=== PATIENT | female | born 1965 | race Caucasian/White ===

== ENCOUNTER 2019-10-21 17:14 | Inpatient (IN) ==
--- NOTE | 2019-10-21 17:36 | Internal Med History&Physical ---
HPI History of Present Illness Patient information: Note initiated : 10/21/19 at 5:36 pm Service Date, if different from initiated Date: [] Patient: Deisy Rutledge 53 y/o F admitted on for infected foot. Chief Complaint: [] History of present illness: Ms. Rutledge is a 53 year old F with a history of poorly controlled diabetes/diabetic neuropathy and prior foot ulcers requiring right fourth toe amputation. She presents to the ER with worsening left fourth toe blistering/redness and swelling over the last few days. Denies recent trauma. Patient has a history of poor control diabetes with microvascular complication including neuropathy/peripheral vascular disease. She is out of insurance and has not followed up on her blood sugars for months. She is also out of her usual medication/metformin. She is trying to establish with a [facility] physician. She presents to the ER for toe infection evaluation. Initial work-up was consistent with hyper glycemic hyperosmolar state with cellulitis changes left foot. Patient was started on antibiotics after cultures were drawn. Patient however left AMA to finish some work at home and returned within 2 hours later for evaluation and admission. Wound care Dr. Campos was consulted. Hospital service was requested for admission. At the time of evaluation patient is alert and oriented. She is able to provide answers to most the questions. She denies nausea vomiting, fever, chills, headache, photophobia or joint swelling. She denies any pain which is consistent with her neuropathic extremities. Review of systems A 10 point review of system was performed and is negative except for ones discussed above [facility] Medical History (Updated 10/21/19 @ 13:35 by Spike Rosario MD) Back pain (Chronic) Breast lump (Chronic 10/08/13) Decubitus ulcer of both feet (Acute) Dermatofibroma (Chronic 11/27/13) Dr Alvarez Diabetes mellitus type 2 with neurological manifestations (Acute 11/18/13) Diabetic foot ulcer associated with type 2 diabetes mellitus (Acute) Fibromatosis (Chronic) Genital herpes (Chronic) Ingrown nail (Chronic) Lumbago (Chronic 10/02/12) Dr Capone Neck pain (Chronic) Neuritis (Chronic) Thoracic or Lumbosacral Neuritis or Radiculitis Nuclear sclerosis (Chronic 04/26/14) Dr Escobar 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) Seborrheic dermatitis (Chronic 11/27/13) Dr Alvarez Seborrheic keratosis (Chronic 11/27/13) Skin abscess (Chronic) Skin lesion (Chronic 11/05/13) Cellulite/fatty degenraio non the left thigh Type 2 diabetes mellitus without complication (Chronic) 1997 Ulcer of lower extremity (Chronic 10/02/12) Dr Capone Xerosis of skin (Chronic 11/27/13) Other specified diseases of sebaceous glands--Dr Alvarez Surgical History Hx of amputation of lesser toe (Chronic) 2014 S/P skin biopsy (Chronic 10/02/12) Family History Mother Family history of arthritis Uncle Family history of arthritis Alcohol abuse Grandmother Essential hypertension Maternal Leukemia Maternal Myocardial Infarction Maternal Diabetes mellitus Maternal Great Grandmother Social History (Updated 04/07/19 @ 09:34 by Thierry Reyes MD, [facility]) marital status: legally smoking status: Never smoker alcohol intake frequency: does not drink substance use type: does not use MEDS/ALLERGIES Home Medications and Allergies Home Medications Medication Instructions Recorded Confirmed Type blood-glucose meter #100 each 11/19/17 10/21/19 Rx lancets #100 each 12/17/17 10/21/19 Rx blood sugar diagnostic #100 each 03/06/19 10/21/19 Rx Allergies Allergy/AdvReac Type Severity Reaction Status Date / Time adhesive tape Allergy Unknown Verified 10/21/19 17:18 EXAM Constitutional Vitals: Temp Pulse Resp BP Pulse Ox 97.3 F 95 H 16 118/71 98 10/21/19 17:14 10/21/19 17:27 10/21/19 17:14 10/21/19 17:27 10/21/19 17:27 Alert oriented Head normocephalic Oral cavity dry No ear nose discharge Neck lymphadenopathy S1-S2 regular Nonlabored breathing Abdomen soft nontender nondistended Lower extremity-left fourth toe dorsum area excoriated skin with necrotic tissue and also lateral surface with blistering and peeling, no gangrenous change surrounding erythema Right fourth toe amputation stump clean Skin no suspicious lesion Psych alert cooperative neuro nonfocal A/P Narrative A/P Narrative: * Diabetic left fourth toe ulcer with surrounding cellulitis-wound care consulted. Continue broad-spectrum antibiotics. No evidence of osteomyelitis on imaging. Await cultures. * Hyperglycemic hyperosmolar state-poor adherence to medications. Start basal prandial insulin/diabetic diet/diet education. Patient insists on using only oral antidiabetics on discharge due to lack of insurance. * Diabetic neuropathy-start gabapentin * Pseudohyponatremia * Obesity with a BMI over 35. Continue directed therapy/dietary intervention * Full code * Prophylax Heparin Plan * Inpatient admission * Antibiotic coverage * Wound care consult * Diabetes management/diabetic education/basal panel insulin/CC diet * Weight loss intervention counseling * PT OT nutrition support * Case management to coordinate outpatient follow-up/insurance applications Time Spent With Patient Time: Total time spent is greater than 50% in coordination of care (as documented) at patient's floor/unit and/or counseling patient:
[2019-10-21] MEDS ORDERED: CALCIUM CHLORIDE 1,000 MG/10 ML SYRINGE IV PRN ×2 (17:37→19:33)
[2019-10-21] MEDS ORDERED: DEXTROSE 50% 50 ML VIAL IV PRN ×2 (17:37→19:33)
[2019-10-21] MEDS ORDERED: DEXTROSE 31 GM ORAL.SUSP PO PRN ×2 (17:37→19:33)
[2019-10-21] MEDS ORDERED: ONDANSETRON 4 MG ODT TABLET SL PRN ×2 (17:37→19:33)
[2019-10-21] MEDS ORDERED: ACETAMINOPHEN 325 MG TABLET PO PRN (17:37)
[2019-10-21] MEDS ORDERED: MAGNESIUM SULFATE 2 GM/50 ML BAG IV PRN ×2 (17:37→19:33)
[2019-10-21] MEDS ORDERED: ACETAMINOPHEN 650 MG/65 ML BOTTLE IV PRN ×2 (17:37→19:33)
[2019-10-21] MEDS ORDERED: MELATONIN 3 MG TABLET PO PRN (17:37)
[2019-10-21] MEDS ORDERED: POLYETHYLENE GLYCOL 3350 17 GM PACKET PO PRN ×2 (17:37→19:33)
[2019-10-21] MEDS ORDERED: ONDANSETRON 4 MG/2 ML VIAL IV PRN ×2 (17:37→19:33)
[2019-10-21] MEDS ORDERED: BISACODYL 10 MG SUPP.RECT PR PRN ×2 (17:37→19:33)
[2019-10-21] MEDS ORDERED: POTASSIUM CHLORIDE 20 MEQ PACKET PO PRN ×2 (17:37→19:33)
[2019-10-21] MEDS ORDERED: PIPERACILLIN SODIUM/TAZOBACTAM 3.375 GM in DEXTROSE 5% IN WATER 50 ML IV SCH (17:45)
[2019-10-21] MEDS ORDERED: VANCOMYCIN PER PHARMACY IV SCH ×2 (17:45→19:33)
[2019-10-21] MEDS: DOCUSATE SODIUM 100 MG CAPSULE PO SCH (20:33)
[2019-10-21] MEDS: SENNOSIDES/DOCUSATE SODIUM 1 TAB TABLET PO SCH (20:34)
[2019-10-21] MEDS: INSULIN LISPRO 1 UNIT/0.01 ML UNIT SQ SCH ×2 (20:50→22:36)
[2019-10-21] MEDS: INSULIN GLARGINE, HUMAN 1 UNIT/0.01 ML SQ SCH (20:50)
[2019-10-21] MEDS: HEPARIN 5,000 UNIT/ML VIAL SQ SCH (20:50)
[2019-10-21] MEDS: 0.9 % SODIUM CHLORIDE 10 ML SYRINGE IV SCH (20:51)
[2019-10-21] MEDS: ACETAMINOPHEN 325 MG TABLET PO PRN (20:51)
[2019-10-21] MEDS ORDERED: VANCOMYCIN 1,000 MG in 0.9 % SODIUM CHLORIDE 250 ML IV SCH (21:00)
[2019-10-21] MEDS ORDERED: SENNOSIDES/DOCUSATE SODIUM 1 TAB TABLET PO SCH (21:00)
[2019-10-21] MEDS ORDERED: DOCUSATE SODIUM 100 MG CAPSULE PO SCH (21:00)
[2019-10-21] MEDS ORDERED: CYANOCOBALAMIN (VITAMIN B-12) 500 MCG TABLET PO SCH (21:00)
[2019-10-21] MEDS ORDERED: HEPARIN 5,000 UNIT/ML VIAL SQ SCH (21:00)
[2019-10-21] MEDS ORDERED: INSULIN LISPRO 1 UNIT/0.01 ML UNIT SQ SCH (21:00)
[2019-10-21] MEDS ORDERED: VANCOMYCIN 1,500 MG in 0.9 % SODIUM CHLORIDE 500 ML IV SCH (21:00)
[2019-10-21 21:48] LABS: Appearance,Urine CLEAR; Bacteria,Urine 0 /hpf (0); Bilirubin,Urine NEG (NEG); Color,Urine YELLOW; Culture Indicated,Urine NO; Glucose,Urine (UA) >=500 mg/dL (NEG); Ketones,Urine 5/TR mg/dL (NEG); Leukocyte Esterase,Urine NEG /uL (NEG); Mucus,Urine FEW /hpf (0); Nitrate,Urine NEG (NEG); Protein,Urine >=500 mg/dL (NEG); Specific Gravity,Urine 1.029 (1.000-1.035); Urine Blood 0.2 mg/dL (<0.03); Urine RBC 5 /hpf (0-1); Urine Squamous Epithelial Cell 2 /hpf (0-4); Urine WBC 2 /hpf (0-4); Urobilinogen,Urine NEG (NEG)
[2019-10-21] MEDS ORDERED: 0.9 % SODIUM CHLORIDE 10 ML SYRINGE IV SCH (22:00)
[2019-10-21] MEDS: CYANOCOBALAMIN (VITAMIN B-12) 500 MCG TABLET PO SCH (22:42)
[2019-10-22 01:15] LABS: Hemoglobin A1C 14.5 % HGB (4.0-6.0)
[2019-10-22] MEDS: PIPERACILLIN SODIUM/TAZOBACTAM 3.375 GM in DEXTROSE 5% IN WATER 50 ML IV SCH ×5 (01:49→23:40)
[2019-10-22] MEDS: 0.9 % SODIUM CHLORIDE 10 ML SYRINGE IV SCH ×3 (05:52→23:40)
[2019-10-22 06:25] LABS: Hematocrit 31.2 % (34.1-44.9); Hemoglobin 10.7 g/dL (11.2-15.7); Mean Corpuscular HGB Conc 34.3 g/dL (31.0-36.0); Mean Platelet Volume 11.6 fL (7.4-10.4); Platelet Count 219 K/mcL (140-440); RBC 3.95 M/mcL (3.59-5.38); Red Cell Distribution Width 12.2 % (11.5-14.5); WBC 7.4 K/mcL (4.50-11.00)
[2019-10-22 06:44] LABS: ALT/SGPT 9 U/l (0-40); AST/SGOT 10 U/l (0-37); Albumin 2.3 gm/dL (3.2-5.2); Albumin/Globulin Ratio 0.8 (1.0-2.3); Alkaline Phosphatase 83 U/L (39-117); Bilirubin,Direct < 0.2 mg/dL (0.0-0.3); Bilirubin,Total 0.7 mg/dL (0.0-1.0); Blood Urea Nitrogen 25 mg/dl (6-20); Calcium 8.1 mg/dl (8.6-10.4); Carbon Dioxide 26 mmol/L (22-30); Chloride 97 mmol/L (96-108); Globulin 2.8 gm/dL (2.2-3.7); Glomerular Filtration Rate 65; Glucose 298 mg/dL (70-105); Lactate Dehydrogenase 184 U/L (94-250); Phosphorous 3.8 mg/dL (2.7-4.5); Triglycerides 183 mg/dl (<150); Uric Acid 5.1 mg/dL (2.5-8.0)
[2019-10-22] MEDS: INSULIN LISPRO 1 UNIT/0.01 ML UNIT SQ SCH ×4 (07:20→20:27)
[2019-10-22 07:21] LABS: Erythrocyte Sedimentation Rate 93 mm/hr (0-20)
[2019-10-22 07:47] LABS: Band Neutrophils % 1 % (0-10); Eosinophils % (Manual) 1 % (0-7); Hypochromasia 1+ (NONE SEEN); Lymphocytes % 13 % (15-49); Microcytosis 1+ (NONE SEEN); Monocytes % (Manual) 11 % (1-12); Platelet Estimate NORMAL (NORMAL); RBC Morphology ABNORM (NORMAL); Segmented Neutrophils % 74 % (38-78)
[2019-10-22] MEDS: metFORMIN 500 MG TABLET PO SCH ×2 (08:24→17:20)
[2019-10-22] MEDS ORDERED: THIAMINE 100 MG TABLET PO SCH (09:00)
[2019-10-22] MEDS ORDERED: sitaGLIPtin 100 MG TABLET PO SCH (09:00)
[2019-10-22] MEDS ORDERED: MULTIVIT,THER IRON,CA,FA & MIN 1 TABLET PO SCH (09:00)
[2019-10-22] MEDS: MULTIVIT,THER IRON,CA,FA & MIN 1 TABLET PO SCH (10:09)
[2019-10-22] MEDS: sitaGLIPtin 100 MG TABLET PO SCH (10:09)
[2019-10-22] MEDS: HEPARIN 5,000 UNIT/ML VIAL SQ SCH ×2 (10:09→20:16)
[2019-10-22] MEDS: THIAMINE 100 MG TABLET PO SCH (10:09)
[2019-10-22] MEDS: CYANOCOBALAMIN (VITAMIN B-12) 500 MCG TABLET PO SCH ×2 (10:10→20:15)
[2019-10-22] MEDS: INSULIN GLARGINE, HUMAN 1 UNIT/0.01 ML SQ SCH ×2 (10:10→20:27)
[2019-10-22] MEDS: DOCUSATE SODIUM 100 MG CAPSULE PO SCH ×2 (10:11→20:10)
[2019-10-22] MEDS: VANCOMYCIN 1,500 MG in 0.9 % SODIUM CHLORIDE 500 ML IV SCH ×2 (10:27→21:14)
--- NOTE | 2019-10-22 11:36 | Internal Med Progress Note ---
SUBJECTIVE Subjective Patient information: Note initiated : 10/22/19 at 11:33 am Service Date, if different from initiated Date: [] Patient: Deisy Rutledge 53 y/o F admitted on 10/21/19 for infected foot. Chief Complaint: [] Interval history: History of present illness: Ms. Rutledge is a 53 year old F with a history of poorly controlled diabetes/diabetic neuropathy and prior foot ulcers requiring right fourth toe amputation. She presents to the ER with worsening left fourth toe blistering/redness and swelling over the last few days. Denies recent trauma. Patient has a history of poor control diabetes with microvascular complication including neuropathy/peripheral vascular disease. She is out of insurance and has not followed up on her blood sugars for months. She is also out of her usual medication/metformin. She is trying to establish with a primary care physician. She presents to the ER for toe infection evaluation. Initial work-up was consistent with hyper glycemic hyperosmolar state with cellulitis changes left foot. Patient was started on antibiotics after cultures were drawn. Patient however left AMA to finish some work at home and returned within 2 hours later for evaluation and admission. Wound care Dr. Campos was consulted. Hospital service was requested for admission. At the time of evaluation patient is alert and oriented. She is able to provide answers to most the questions. She denies nausea vomiting, fever, chills, headache, photophobia or joint swelling. She denies any pain which is con sistent with her neuropathic extremities. 10/21-patient doing well. On antibiotic coverage. Wound care on board. No overnight events. Improving blood sugars. Uptitrate Lantus. Continue CC diet. Constitutional Vitals: Vital Signs Temp Pulse Resp BP Pulse Ox 97.8 F 85 18 114/69 97 10/22/19 08:00 10/22/19 08:00 10/22/19 08:00 10/22/19 08:00 10/22/19 08:00 Period Temp Pulse Resp BP Sys/Cain Pulse Ox Last 24 Hr 97.3 F-98.9 F 85-100 16-20 111-145/66-95 91-98 Intake and Output 10/21/19 10/22/19 10/22/19 21:59 05:59 13:59 Intake Total 172 100 8963 Output Total 425 600 400 Balance -185 230 970 Weight 98.43 kg alert oriented nonlabored breathing Nondistended abdomen No anxiety Improved redness and swelling left foot Intake & Output: Intake & Output 10/21/19 10/22/19 10/22/19 21:59 05:59 13:59 Intake Total 216 334 8914 Output Total 425 600 400 Balance -185 230 970 Weight 98.43 kg Intake: IV 350 50 Zosyn 3.375 gm In Dextrose 5% 100 50 in Water 50 ml @ 100 mls/hr IV Q6H [facility] Rx#:[id number] Vancomycin 1,000 mg In Sodium 250 Chloride 0.9% 250 ml @ 250 mls/ hr IV TODAY@2100 [facility] Rx#: [id number] Oral 997 138 8424 Output: Void Amount 425 600 400 Other: Meal Tuna salad Breakfast Percent of Meal Consumed 100% 100% Feeding Ability Independent Independent Urine Appearance Clear Clear Urine Color Dark Yellow Bright Yellow Tea Colored Urine Odor Normal Stool Size Large Stool Color Brown Stool Consistency Soft # Bowel Movements 2 OBJ DATA Labs CBC & Chem 7: 10/22/19 05:25 10/22/19 05:25 Labs: Abnormal Lab Results 10/22/19 10/22/19 10/21/19 05:25 05:25 21:03 Hgb 10.7 L Hct 31.2 L MCV 79.0 L MPV 11.6 H Lymphocytes % 13 L RBC Morphology Abnorm A Hypochromasia 1+ A Microcytosis 1+ A ESR 93 H BUN 25 H Glucose 298 H Hemoglobin A1c Calcium 8.1 L Total Protein 5.1 L Albumin 2.3 L Albumin/Globulin Ratio 0.8 L Triglycerides 183 H Urine Protein >=500 A Urine Glucose (UA) >=500 A Urine Ketones 5/tr A Urine Occult Blood 0.2 A Urine RBC 5 H 10/21/19 12:42 Hgb Hct MCV MPV Lymphocytes % RBC Morphology Hypochromasia Microcytosis ESR BUN Glucose Hemoglobin A1c 14.5 H Calcium Total Protein Albumin Albumin/Globulin Ratio Triglycerides Urine Protein Urine Glucose (UA) Urine Ketones Urine Occult Blood Urine RBC Meds: Medications Acetaminophen (Tylenol) 650 mg PO Q4-6HP PRN; Protocol PRN Reason: Per Pain Protocol/Fever > 101 Last Admin: 10/21/19 20:51 Dose: 650 mg Documented by: Bisacodyl (Dulcolax) 10 mg ID Q2-3DAYS PRN PRN Reason: Constipation Calcium Chloride (Calcium Chloride) 1,000 mg IV ONCE PRN PRN Reason: CA+ = or < 7.8 Stop: 10/22/19 12:00 Cyanocobalamin (Vitamin B-12) 1,000 mcg PO BID [facility] Stop: 10/26/19 09:01 Last Admin: 10/22/19 10:10 Dose: 1,000 mcg Documented by: Dextrose (Dextrose 50%) 0 ml IV UD PRN PRN Reason: Hypoglycemia Diagnostic Test (Pha) (Accu-Chek) 1 each FS [facility] Last Admin: 10/22/19 07:01 Dose: 1 each Documented by: Docusate Sodium (Colace) 100 mg PO BID [facility] Last Admin: 10/22/19 10:11 Dose: Not Given Documented by: Glucose (Insta-Glucose) 15 gm PO PRN PRN PRN Reason: Hypoglycemia Heparin Sodium (Porcine) (Heparin) 5,000 unit SQ Q12 [facility] Last Admin: 10/22/19 10:09 Dose: 5,000 unit Documented by: Acetaminophen (Ofirmev) 650 mg in 65 mls @ 130 mls/hr IV Q6HP PRN; Protocol PRN Reason: Per Pain Protocol/Fever > 101 Magnesium Sulfate (Magnesium Sulfate) 2 gm in 50 mls @ 50 mls/hr IV UD PRN PRN Reason: MG = or < 1.7 Piperacillin Sod/Tazobactam (Sod 3.375 gm/ Dextrose) 50 mls @ 100 mls/hr IV Q6H [facility]; Protocol Last Infusion: 10/22/19 10:29 Dose: Infused Documented by: Vancomycin HCl 1,500 mg/ (Sodium Chloride) 500 mls @ 250 mls/hr IV Q12H [facility] Last Admin: 10/22/19 10:27 Dose: 250 mls/hr Documented by: Insulin Glargine (Lantus) 10 unit SQ BID [facility] Last Admin: 10/22/19 10:10 Dose: 10 units Documented by: Insulin Human Lispro (Humalog) 0 unit SQ ACHS [facility]; Protocol Last Admin: 10/22/19 07:20 Dose: 8 units Documented by: Iron Carb/Multivit/Simpson/Folic Acid (Multivitamin W/Minerals) 1 tab PO DAILY [facility] Last Admin: 10/22/19 10:09 Dose: 1 tab Documented by: Melatonin (Melatonin 3mg Tablet) 3 mg PO HSP PRN PRN Reason: Insomnia Metformin HCl (Glucophage) 1,000 mg PO BIDCC [facility] Last Admin: 10/22/19 08:24 Dose: 1,000 mg Documented by: Ondansetron HCl (Zofran Odt) 4 mg SL Q4-6HP PRN; Protocol PRN Reason: Nausea And Vomiting Ondansetron HCl (Zofran) 4 mg IV Q4-6HP PRN; Protocol PRN Reason: Nausea And Vomiting Polyethylene Glycol (Miralax) 17 gm PO DAILYP PRN PRN Reason: Constipation Potassium Chloride (Klor-Con) 40 meq PO DAILYP PRN PRN Reason: K+ < 3.5 Senna/Docusate Sodium (Senna Plus Tablet) 1 tab PO HS [facility] Last Admin: 10/21/19 20:34 Dose: Not Given Documented by: Sitagliptin Phosphate (Januvia) 100 mg PO DAILY [facility] Last Admin: 10/22/19 10:09 Dose: 100 mg Documented by: Sodium Chloride (Saline Flush) 10 ml IV Q8 [facility] Last Admin: 10/22/19 05:52 Dose: 10 ml Documented by: Thiamine HCl (Vitamin B1) 100 mg PO DAILY [facility] Last Admin: 10/22/19 10:09 Dose: 100 mg Documented by: Vancomycin HCl (Vancomycin Per Pharmacy) 1 order IV UD [facility]; Protocol A/P Narrative A/P Narrative: * Diabetic left fourth toe ulcer with surrounding cellulitis- Improving on broad-spectrum antibiotics. No evidence of osteomyelitis on imaging. Wound care consulted * Hyperglycemic hyperosmolar state-poor adherence to medications. Continue uptitrating basal prandial insulin/diabetic diet/diet education. Patient insists on using only oral antidiabetics on discharge due to lack of insurance. Continue diabetic education * Diabetic neuropathy-continue gabapentin * Pseudohyponatremia * Obesity with a BMI over 35. Continue directed therapy/dietary intervention * Full code * Prophylax Heparin Plan * Continue wound care per Dr. Campos * Antibiotic coverage * Diabetes management/diabetic education/basal panel insulin/CC diet * Weight loss intervention counseling * Continue PT OT nutrition support * Case management to coordinate outpatient follow-up/insurance applications Time Spent With Patient Time: Total time spent is greater than 50% in coordination of care (as documented) at patient's floor/unit and/or counseling patient: QUALITY VTE Deep Vein Thrombosis/Pulmonary Embolism Present on Admission: No
--- NOTE | 2019-10-22 13:50 | General Surgery Consult Note ---
HPI Data of Consult Consult date: 10/22/19 Requesting physician: Rodolfo Lemos Primary Care Provider: PCP No Consult Narrative Chief complaint: SEPSIS, INFECTED left fourth toe with cellulits and uncontrol led diabetes. Reason for consult: Wound Care management. History of present illness: I saw this patient for FIRST time today in Room 108 along with LILA [employer] plant caretaker nurse. Admitted via ER last evening with SEPSIS due to CSSSI of left 4th toe, discoloration, soft tissue swelling and uncontrolled diabetes, hyperosmolar state, cellulitis surrounding the toe an lateral foot. She has had toe infections and deformity of this toe in past. Patient has long standing h/o IDDM and had undergone a toe amputation of RIGHT foot in past. She is a NON smoker and NON alcoholic. 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 She DENIES any other specific constitutional or systemic complaints. cc:: CC: Rodolfo Lemos [facility] Medical History (Updated 10/21/19 @ 13:35 by Spike Rosario MD) Back pain (Chronic) Breast lump (Chronic 10/08/13) Decubitus ulcer of both feet (Acute) Dermatofibroma (Chronic 11/27/13) Dr Alvarez Diabetes mellitus type 2 with neurological manifestations (Acute 11/18/13) Diabetic foot ulcer associated with type 2 diabetes mellitus (Acute) Fibromatosis (Chronic) Genital herpes (Chronic) Ingrown nail (Chronic) Lumbago (Chronic 10/02/12) Dr Capone Neck pain (Chronic) Neuritis (Chronic) Thoracic or Lumbosacral Neuritis or Radiculitis Nuclear sclerosis (Chronic 04/26/14) Dr Escobar 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) Seborrheic dermatitis (Chronic 11/27/13) Dr Alvarez Seborrheic keratosis (Chronic 11/27/13) Skin abscess (Chronic) Skin lesion (Chronic 11/05/13) Cellulite/fatty degenraio non the left thigh Type 2 diabetes mellitus without complication (Chronic) 1998 Ulcer of lower extremity (Chronic 10/02/12) Dr Capone Xerosis of skin (Chronic 11/27/13) Other specified diseases of sebaceous glands--Dr Alvarez Surgical History Hx of amputation of lesser toe (Chronic) 2014 S/P skin biopsy (Chronic 10/02/12) Family History Mother Family history of arthritis Uncle Family history of arthritis Alcohol abuse Grandmother Essential hypertension Maternal Leukemia Maternal Myocardial Infarction Maternal Diabetes mellitus Maternal Great Grandmother Social History (Updated 04/07/19 @ 09:34 by Thierry Reyes MD, [facility]) marital status: legally smoking status: Never smoker alcohol intake frequency: does not drink substance use type: does not use MEDS/ALLERGIES Home Medications and Allergies Home Medications Medication Instructions Recorded Confirmed Type blood-glucose meter #100 each 11/19/17 10/21/19 Rx lancets #100 each 12/17/17 10/21/19 Rx blood sugar diagnostic #100 each 03/06/19 10/21/19 Rx ibuprofen 400 mg PO Q6H PRN 10/21/19 10/21/19 History Allergies Allergy/AdvReac Type Severity Reaction Status Date / Time adhesive tape Allergy Unknown Verified 10/21/19 20:25 Physical Examination Vital Signs Vital signs: Temp Pulse Resp BP Pulse Ox 97.8 F 95 H 18 119/73 97 10/22/19 08:00 10/22/19 12:00 10/22/19 08:00 10/22/19 12:00 10/22/19 12:00 General physical appearance General physical exam: well developed, well nourished and no distress Eyes Eye exam: PERRL and normal ocular movement ENT ENT exam: normal pinna, normal nares, normal mucosa, no hearing loss and no congestion Head Head exam IM: Present atraumatic, normal inspection and normocephalic Neck Neck exam: no masses, trachea midline and no venous distension Cardiovascular Cardiovascular exam IM: Present normal rate and rhythm Respiratory Respiratory exam: normal expansion, normal respiratory effort and clear to auscultation Abdomen Abdomen: Present soft, non tender and bowel sounds Integumentary Integumentary: Present other (There is soft tissue edema, discolration, ulceration over PIPJ and purulence of 4th toe. Proximal cellulitis involving lateral dorsal foot, extending to ankle region. ) Neurologic Neurologic: Present other (Diabetes with peripheral neuropathy. ) Musculoskeletal Musculoskeletal: Present normal posture Psychiatric Psychiatric: Present oriented to time, oriented to person, oriented to place, speech is normal and memory intact Additional Findings Additional exam: TOE nails of both feet are long, ridged and sharp edged. Results Labs Result diagrams: 10/22/19 05:25 10/22/19 05:25 Labs: Abnormal lab results 10/21/19 10/21/19 10/22/19 Range/Units 12:42 21:03 05:25 Hgb 10.7 L (11.2-15.7) g/dL Hct 31.2 L (34.1-44.9) % MCV 79.0 L (80.0-100.0) fL MPV 11.6 H (7.4-10.4) fL Lymphocytes % 13 L (15-49) % RBC Morphology Abnorm A (NORMAL) Hypochromasia 1+ A (NONE SEEN) Microcytosis 1+ A (NONE SEEN) ESR 93 H (0-20) mm/hr BUN (6-20) mg/dl Glucose (70-105) mg/dL Hemoglobin A1c 14.5 H (4.0-6.0) % HGB Calcium (8.6-10.4) mg/dl Total Protein (5.9-8.4) gm/dL Albumin (3.2-5.2) gm/dL Albumin/Globulin Ratio (1.0-2.3) Triglycerides (<150) mg/dl Urine Protein >=500 A (NEG) mg/dL Urine Glucose (UA) >=500 A (NEG) mg/dL Urine Ketones 5/tr A (NEG) mg/dL Urine Occult Blood 0.2 A (<0.03) mg/dL Urine RBC 5 H (0-1) /hpf 10/22/19 Range/Units 05:25 Hgb (11.2-15.7) g/dL Hct (34.1-44.9) % MCV (80.0-100.0) fL MPV (7.4-10.4) fL Lymphocytes % (15-49) % RBC Morphology (NORMAL) Hypochromasia (NONE SEEN) Microcytosis (NONE SEEN) ESR (0-20) mm/hr BUN 25 H (6-20) mg/dl Glucose 298 H (70-105) mg/dL Hemoglobin A1c (4.0-6.0) % HGB Calcium 8.1 L (8.6-10.4) mg/dl Total Protein 5.1 L (5.9-8.4) gm/dL Albumin 2.3 L (3.2-5.2) gm/dL Albumin/Globulin Ratio 0.8 L (1.0-2.3) Triglycerides 183 H (<150) mg/dl Urine Protein (NEG) mg/dL Urine Glucose (UA) (NEG) mg/dL Urine Ketones (NEG) mg/dL Urine Occult Blood (<0.03) mg/dL Urine RBC (0-1) /hpf Diabetes panel 10/21/19 10/22/19 Range/Units 12:42 05:25 Sodium 134 (133-145) mmol/L Potassium 4.2 (3.3-5.1) mmol/L Chloride 97 (96-108) mmol/L Carbon Dioxide 26 (22-30) mmol/L BUN 25 H (6-20) mg/dl Creatinine 1.0 (0.6-1.1) mg/dl Glucose 298 H (70-105) mg/dL Hemoglobin A1c 14.5 H (4.0-6.0) % HGB Calcium 8.1 L (8.6-10.4) mg/dl AST 10 (0-37) U/l ALT 9 (0-40) U/l Alkaline Phosphatase 83 (39-117) U/L Total Protein 5.1 L (5.9-8.4) gm/dL Albumin 2.3 L (3.2-5.2) gm/dL Triglycerides 183 H (<150) mg/dl Calcium panel 10/22/19 Range/Units 05:25 Calcium 8.1 L (8.6-10.4) mg/dl Phosphorus 3.8 (2.7-4.5) mg/dL Albumin 2.3 L (3.2-5.2) gm/dL Pituitary panel 10/22/19 Range/Units 05:25 Sodium 134 (133-145) mmol/L Potassium 4.2 (3.3-5.1) mmol/L Chloride 97 (96-108) mmol/L Carbon Dioxide 26 (22-30) mmol/L BUN 25 H (6-20) mg/dl Creatinine 1.0 (0.6-1.1) mg/dl Glucose 298 H (70-105) mg/dL Calcium 8.1 L (8.6-10.4) mg/dl Adrenal panel 10/22/19 Range/Units 05:25 Sodium 134 (133-145) mmol/L Potassium 4.2 (3.3-5.1) mmol/L Chloride 97 (96-108) mmol/L Carbon Dioxide 26 (22-30) mmol/L BUN 25 H (6-20) mg/dl Creatinine 1.0 (0.6-1.1) mg/dl Glucose 298 H (70-105) mg/dL Calcium 8.1 L (8.6-10.4) mg/dl Total Bilirubin 0.7 (0.0-1.0) mg/dL AST 10 (0-37) U/l ALT 9 (0-40) U/l Alkaline Phosphatase 83 (39-117) U/L Total Protein 5.1 L (5.9-8.4) gm/dL Albumin 2.3 L (3.2-5.2) gm/dL All other labs normal. A/P Narrative A/P Narrative: Assessment: SEPSIS , CSSSI Left 4th toe with cellulitis and uncontrolled diabetes. hyperosmolar state. Plan: Bedside debridement and tissue for c/s. Spoke with patient about plan of treatment i.e. LOCAL wound care, focused antibiotic coverage. MAY end up with toe amputation. She is aware and understands. SHE understands. She is concerned about NOT having insurance coverage and awaits evaluation by GEO, SW. Time Spent With Patient Time: Total time spent is greater than 50% in coordination of care (as documented) at patient's floor/unit and/or counseling patient: Total time spent with greater than 50% in coordination of care (as documented) at patient's floor/unit and/or counseling patient:: Greater than 35 minutes
--- NOTE | 2019-10-22 14:02 | Brief Operative Note ---
Brief Operative Note Date of procedure: 10/22/19 Pre-op diagnosis: SEPSIS, Infected LEFT 4th toe with cellulitis. Post-op diagnosis: same Procedure: BEDSIDE debridement with tissue for c/s Anesthesia: none Findings: Purulent drainage above PIPJ with skin necrosis. Complications: none Surgeon: Mike Campos Estimated blood loss (cc): 0 Specimens Removed/Pathology: other Condition: stable Disposition: floor
--- NOTE | 2019-10-22 14:21 | Emergency Department Note ---
Extremity Problem HPI General Chief complaint: Extremity Injury, Lower Stated complaint: infected foot Time Seen by Provider: 10/21/19 17:31 Source: patient Mode of arrival: ambulatory Limitations: no limitations History of Present Illness HPI Narrative: Narrative: This 53-year-old patient was seen earlier today and was going to be admitted for hyperglycemia and diabetic foot ulcer. Work-up was done but patient needed to go home first to take care of her animals before she could come in the hospital. She left AMA and is now back to be admitted to the hospital Related Data Home Medications Medication Instructions Recorded Confirmed ibuprofen 400 mg PO Q6H PRN 10/21/19 10/21/19 Previous Rx's Medication Instructions Recorded blood-glucose meter #100 each 11/19/17 lancets #100 each 12/17/17 blood sugar diagnostic #100 each 03/06/19 Allergies Allergy/AdvReac Type Severity Reaction Status Date / Time adhesive tape AdvReac Mild skin peels Verified 10/25/19 09:11 Review of Systems ROS ROS Narrative: Narrative: COUNT INCLUDES THE [facility] Narrative Patient History Narrative: Narrative: Medical/Surgical/Family History All Active Problems (Updated 10/21/19 @ 13:35 by Spike Rosario MD) Acute hyperglycemia (Acute) Influenza vaccine refused (Chronic) Diabetic foot ulcer associated with type 2 diabetes mellitus (Acute) Decubitus ulcer of both feet (Acute) Depression (Acute) Hyponatremia (Acute) Elevated ferritin (Chronic) Hypovitaminosis D (Chronic) Hyperlipidemia (Chronic) Essential hypertension (Chronic) Hx of amputation of lesser toe (Chronic) S/P skin biopsy (Chronic 10/02/12) Xerosis of skin (Chronic 11/27/13) Ulcer of lower extremity (Chronic 10/02/12) Neuritis (Chronic) Seborrheic keratosis (Chronic 11/27/13) Seborrheic dermatitis (Chronic 11/27/13) 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) Nuclear sclerosis (Chronic 04/26/14) Neck pain (Chronic) Lumbago (Chronic 10/02/12) Skin lesion (Chronic 11/05/13) Ingrown nail (Chronic) Genital herpes (Chronic) Fibromatosis (Chronic) Diabetes mellitus type 2 with neurological manifestations (Acute 11/18/13) Type 2 diabetes mellitus without complication (Chronic) Dermatofibroma (Chronic 11/27/13) Breast lump (Chronic 10/08/13) Back pain (Chronic) Skin abscess (Chronic) Medical History (Updated 10/21/19 @ 13:35 by Spike Rosario MD) Back pain (Chronic) Breast lump (Chronic 10/08/13) Decubitus ulcer of both feet (Acute) Dermatofibroma (Chronic 11/27/13) Dr Alvarez Diabetes mellitus type 2 with neurological manifestations (Acute 11/18/13) Diabetic foot ulcer associated with type 2 diabetes mellitus (Acute) Fibromatosis (Chronic) Genital herpes (Chronic) Ingrown nail (Chronic) Lumbago (Chronic 10/02/12) Dr Capone Neck pain (Chronic) Neuritis (Chronic) Thoracic or Lumbosacral Neuritis or Radiculitis Nuclear sclerosis (Chronic 04/26/14) Dr Escobar 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) Seborrheic dermatitis (Chronic 11/27/13) Dr Alvarez Seborrheic keratosis (Chronic 11/27/13) Skin abscess (Chronic) Skin lesion (Chronic 11/05/13) Cellulite/fatty degenraio non the left thigh Type 2 diabetes mellitus without complication (Chronic) 1998 Ulcer of lower extremity (Chronic 10/02/12) Dr Capone Xerosis of skin (Chronic 11/27/13) Other specified diseases of sebaceous glands--Dr Alvarez Surgical History Hx of amputation of lesser toe (Chronic) 2014 S/P skin biopsy (Chronic 10/02/12) Family History Mother Family history of arthritis Uncle Family history of arthritis Alcohol abuse Grandmother Essential hypertension Maternal Leukemia Maternal Myocardial Infarction Maternal Diabetes mellitus Maternal Great Grandmother Social History Smoking Status: Never smoker Alcohol Intake Frequency: does not drink Substance Use: does not use Exam Narrative Narrative: Narrative: General Limitations: no limitations Course Vital Signs Vital signs: Vital Signs Temperature 97.3 F 10/21/19 17:14 Pulse Rate 97 H 10/21/19 17:14 Respiratory Rate 16 10/21/19 17:14 Blood Pressure 124/71 10/21/19 17:14 Pulse Oximetry (%) 98 10/21/19 17:14 Temperature 97.3 F 10/25/19 07:53 Pulse Rate 87 10/25/19 07:53 Respiratory Rate 16 07/12/20 07:53 Blood Pressure 118/74 10/25/19 07:53 Pulse Oximetry (%) 95 10/25/19 07:53 MDM MDM Narrative Medical decision making narrative: Narrative: Dr. Campos is already consulted for wound care. We will consult hospitalist for admission I discussed the case with Dr. Herrera. He agreed to accept the patient for further care and evaluation in the hospital. Please see previous note for full work-up. Lab Data Result diagrams: 10/25/19 05:30 10/25/19 05:30 Labs: Lab Results 10/21/19 Range/Units 12:42 Hemoglobin A1c 14.5 H (4.0-6.0) % HGB Estim Average Glucose 369 mg/dL Discharge Plan Patient/Caregiver Discharge Instructions Pt seen by [employer] SCREED OPERATOR/PA only: No Patient Disposition: Xfer As Inpt ([facility]) Condition: Fair Discharge Date/Time: 10/21/19 19:29 Discharge Location: [facility]
--- NOTE | 2019-10-22 14:41 | Procedure Note ---
DATE OF PROCEDURE: 10/22/2019 PREOPERATIVE DIAGNOSES: Sepsis, uncontrolled diabetes, hyperosmolar state, cellulitis, and infected left fourth toe with ulcer on the dorsal aspect of the proximal interphalangeal joint. PROCEDURE NOTE IN DETAIL: After obtaining informed verbal consent, I proceeded to debride this wound at the bedside. With the patient in supine position and the left foot elevated, the area was cleaned with Betadine swab and isolated with sterile drapes. This is a neuropathic foot. I was able to excise the wound ulcer site with pickup and scissors. This led to a gush of purulent drainage. Customs Agent sample was obtained for culture and sensitivity. Dressings consisted of SilverSol ointment, gauze between the toes, Kerlix, and Jerry bandages respectively. This will be repeated two times a day, and we will await results of the culture and sensitivity. VD:ricco Job ID: [id number] Doc ID: [id number] Mike Campos MD
[2019-10-22] MEDS: GABAPENTIN 100 MG CAPSULE PO SCH ×2 (15:24→20:15)
[2019-10-22] MEDS: SENNOSIDES/DOCUSATE SODIUM 1 TAB TABLET PO SCH (20:10)
[2019-10-22] MEDS: ACETAMINOPHEN 325 MG TABLET PO PRN (20:15)
[2019-10-23] MEDS: ACETAMINOPHEN 325 MG TABLET PO PRN ×2 (03:33→07:38)
[2019-10-23] MEDS: PIPERACILLIN SODIUM/TAZOBACTAM 3.375 GM in DEXTROSE 5% IN WATER 50 ML IV SCH ×4 (06:02→23:46)
[2019-10-23] MEDS: 0.9 % SODIUM CHLORIDE 10 ML SYRINGE IV SCH ×3 (06:02→21:52)
[2019-10-23 06:58] LABS: Hematocrit 31.3 % (34.1-44.9); Hemoglobin 10.6 g/dL (11.2-15.7); Mean Cell Volume 80.9 fL (80.0-100.0); Mean Corpuscular HGB Conc 33.9 g/dL (31.0-36.0); Mean Platelet Volume 11.2 fL (7.4-10.4); Platelet Count 245 K/mcL (140-440); RBC 3.87 M/mcL (3.59-5.38); Red Cell Distribution Width 12.2 % (11.5-14.5); WBC 7.3 K/mcL (4.50-11.00)
[2019-10-23] MEDS: metFORMIN 500 MG TABLET PO SCH ×2 (07:09→16:41)
[2019-10-23] MEDS: INSULIN LISPRO 1 UNIT/0.01 ML UNIT SQ SCH ×4 (07:09→21:48)
[2019-10-23 07:32] LABS: ALT/SGPT 10 U/l (0-40); AST/SGOT 14 U/l (0-37); Albumin 2.2 gm/dL (3.2-5.2); Albumin/Globulin Ratio 0.8 (1.0-2.3); Alkaline Phosphatase 83 U/L (39-117); Bilirubin,Direct < 0.2 mg/dL (0.0-0.3); Bilirubin,Total 0.5 mg/dL (0.0-1.0); Blood Urea Nitrogen 24 mg/dl (6-20); Calcium 8.1 mg/dl (8.6-10.4); Carbon Dioxide 23 mmol/L (22-30); Chloride 95 mmol/L (96-108); Globulin 2.8 gm/dL (2.2-3.7); Glomerular Filtration Rate 58; Glucose 236 mg/dL (70-105); Lactate Dehydrogenase 163 U/L (94-250); Phosphorous 4.4 mg/dL (2.7-4.5); Triglycerides 229 mg/dl (<150); Uric Acid 4.7 mg/dL (2.5-8.0)
[2019-10-23] MEDS: DOCUSATE SODIUM 100 MG CAPSULE PO SCH ×2 (07:48→21:52)
[2019-10-23] MEDS: HEPARIN 5,000 UNIT/ML VIAL SQ SCH ×2 (08:12→21:51)
[2019-10-23] MEDS: INSULIN GLARGINE, HUMAN 1 UNIT/0.01 ML SQ SCH ×2 (08:12→21:49)
[2019-10-23] MEDS: MULTIVIT,THER IRON,CA,FA & MIN 1 TABLET PO SCH (08:13)
[2019-10-23] MEDS: sitaGLIPtin 100 MG TABLET PO SCH (08:13)
[2019-10-23] MEDS: CYANOCOBALAMIN (VITAMIN B-12) 500 MCG TABLET PO SCH ×2 (08:13→21:50)
[2019-10-23] MEDS: GABAPENTIN 100 MG CAPSULE PO SCH ×3 (08:13→21:50)
[2019-10-23] MEDS: THIAMINE 100 MG TABLET PO SCH (08:13)
[2019-10-23] MEDS: VANCOMYCIN 1,500 MG in 0.9 % SODIUM CHLORIDE 500 ML IV SCH (08:37)
[2019-10-23 09:03] LABS: Band Neutrophils % 2 % (0-10); Basophils % (Manual) 1 % (0-2); Eosinophils % (Manual) 4 % (0-7); Lymphocytes % 19 % (15-49); Monocytes % (Manual) 9 % (1-12); Platelet Estimate NORMAL (NORMAL); Polychromasia 1+ (NONE SEEN); RBC Morphology ABNORM (NORMAL); Reactive Lymphocytes 1 % (0-2); Segmented Neutrophils % 64 % (38-78)
--- NOTE | 2019-10-23 09:49 | Internal Med Progress Note ---
SUBJECTIVE Subjective Patient information: Note initiated : 10/23/19 at 9:44 am Service Date, if different from initiated Date: [] Patient: Deisy Rutledge 53 y/o F admitted on 10/21/19 for infected foot. Chief Complaint: [] History of present illness: Ms. Rutledge is a 53 year old F with a history of poorly controlled diabetes/diabetic neuropathy and prior foot ulcers requiring right fourth toe amputation. She presents to the ER with worsening left fourth toe blistering/redness and swelling over the last few days. Denies recent trauma. Patient has a history of poor control diabetes with microvascular complication including neuropathy/peripheral vascular disease. She is out of insurance and has not followed up on her blood sugars for months. She is also out of her usual medication/metformin. She is trying to establish with a primary care physician. She presents to the ER for toe infection evaluation. Initial work-up was consistent with hyper glycemic hyperosmolar state with cellulitis changes left foot. Patient was started on antibiotics after cultures were drawn. Patient however left AMA to finish some work at home and returned within 2 hours later for evaluation and admission. Wound care Dr. Campos was consulted. Hospital service was requested for admission. At the time of evaluation patient is alert and oriented. She is able to provide answers to most the questions. She denies nausea vomiting, fever, chills, headache, photophobia or joint swelling. She denies any pain which is consistent with her neuropathic extremities. 10/21-patient doing well. On antibiotic coverage. Wound care on board. No overnight events. Improving blood sugars. Uptitrate Lantus. Continue CC diet. 10/22-beta streptococci on wound culture. On antibiotic coverage. Left foot cellulitis and redness much improved. Ongoing debridement by Dr. mejia. A1c over 14. On basal prandial insulin/metformin. Add Glucotrol. Case management coordinating insurance applications. Interval history: Narrative: Constitutional Vitals: Vital Signs Temp Pulse Resp BP Pulse Ox 97.6 F 88 18 127/79 98 10/23/19 08:00 10/23/19 08:00 10/23/19 08:00 10/23/19 08:00 10/23/19 08:00 Period Temp Pulse Resp BP Sys/Cain Pulse Ox Last 24 Hr 97.6 F-99.4 F 82-97 16-20 107-128/71-83 93-98 Intake and Output 10/22/19 10/23/19 10/23/19 21:59 05:59 13:59 Intake Total 550 1000 50 Output Total 725 Balance -175 1000 50 Weight 101.605 kg Alert oriented Resting comfortably Nonlabored breathing Much improved redness left foot No anxiety Intake & Output: Intake & Output 10/22/19 10/23/19 10/23/19 21:59 05:59 13:59 Intake Total 550 1000 50 Output Total 725 Balance -175 1000 50 Weight 101.605 kg Intake: IV 100 550 50 Zosyn 3.375 gm In Dextrose 5% 100 50 50 in Water 50 ml @ 100 mls/hr IV Q6H [facility] Rx#:[id number] Vancomycin 1,500 mg In Sodium 500 Chloride 0.9% 500 ml @ 250 mls/ hr IV Q12H [facility] Rx#:[id number] Oral 450 450 Output: Void Amount 725 Other: Urine Appearance Clear Urine Color Bright Yellow Urine Odor Normal Stool Size Moderate Stool Color Brown Stool Consistency Loose # Voids 1 # Bowel Movements 1 # of times incontinent of 0 Bowels OBJ DATA Labs CBC & Chem 7: 10/23/19 05:35 10/23/19 05:35 Labs: Abnormal Lab Results 10/23/19 10/23/19 10/23/19 08:05 05:35 05:35 Hgb 10.6 L Hct 31.3 L MCV MPV 11.2 H Lymphocytes % RBC Morphology Abnorm A Polychromasia 1+ A Hypochromasia Microcytosis ESR Sodium 131 L Chloride 95 L BUN 24 H Glucose 236 H Hemoglobin A1c Calcium 8.1 L Total Protein 5.0 L Albumin 2.2 L Albumin/Globulin Ratio 0.8 L Triglycerides 229 H Urine Protein Urine Glucose (UA) Urine Ketones Urine Occult Blood Urine RBC Vancomycin Trough 20.8 H* 10/22/19 10/22/19 10/21/19 05:25 05:25 21:03 Hgb 10.7 L Hct 31.2 L MCV 79.0 L MPV 11.6 H Lymphocytes % 13 L RBC Morphology Abnorm A Polychromasia Hypochromasia 1+ A Microcytosis 1+ A ESR 93 H Sodium Chloride BUN 25 H Glucose 298 H Hemoglobin A1c Calcium 8.1 L Total Protein 5.1 L Albumin 2.3 L Albumin/Globulin Ratio 0.8 L Triglycerides 183 H Urine Protein >=500 A Urine Glucose (UA) >=500 A Urine Ketones 5/tr A Urine Occult Blood 0.2 A Urine RBC 5 H Vancomycin Trough 10/21/19 12:42 Hgb Hct MCV MPV Lymphocytes % RBC Morphology Polychromasia Hypochromasia Microcytosis ESR Sodium Chloride BUN Glucose Hemoglobin A1c 14.5 H Calcium Total Protein Albumin Albumin/Globulin Ratio Triglycerides Urine Protein Urine Glucose (UA) Urine Ketones Urine Occult Blood Urine RBC Vancomycin Trough Meds: Medications Acetaminophen (Tylenol) 650 mg PO Q4-6HP PRN; Protocol PRN Reason: Per Pain Protocol/Fever > 101 Last Admin: 10/23/19 07:38 Dose: 650 mg Documented by: Bisacodyl (Dulcolax) 10 mg FL Q2-3DAYS PRN PRN Reason: Constipation Cyanocobalamin (Vitamin B-12) 1,000 mcg PO BID [facility] Stop: 10/26/19 09:01 Last Admin: 10/23/19 08:13 Dose: 1,000 mcg Documented by: Dextrose (Dextrose 50%) 0 ml IV UD PRN PRN Reason: Hypoglycemia Diagnostic Test (Pha) (Accu-Chek) 1 each FS ACHS [facility] Last Admin: 10/23/19 07:03 Dose: 1 each Documented by: Docusate Sodium (Colace) 100 mg PO BID [facility] Last Admin: 10/23/19 07:48 Dose: Not Given Documented by: Gabapentin (Neurontin) 100 mg PO TID [facility] Last Admin: 10/23/19 08:13 Dose: 100 mg Documented by: Glucose (Insta-Glucose) 15 gm PO PRN PRN PRN Reason: Hypoglycemia Heparin Sodium (Porcine) (Heparin) 5,000 unit SQ Q12 [facility] Last Admin: 10/23/19 08:12 Dose: 5,000 unit Documented by: Acetaminophen (Ofirmev) 650 mg in 65 mls @ 130 mls/hr IV Q6HP PRN; Protocol PRN Reason: Per Pain Protocol/Fever > 101 Magnesium Sulfate (Magnesium Sulfate) 2 gm in 50 mls @ 50 mls/hr IV UD PRN PRN Reason: MG = or < 1.7 Piperacillin Sod/Tazobactam (Sod 3.375 gm/ Dextrose) 50 mls @ 100 mls/hr IV Q6H [facility]; Protocol Last Infusion: 10/23/19 06:42 Dose: Infused Documented by: Insulin Glargine (Lantus) 10 unit SQ BID [facility] Last Admin: 10/23/19 08:12 Dose: 10 units Documented by: Insulin Human Lispro (Humalog) 0 unit SQ ACHS [facility]; Protocol Last Admin: 10/23/19 07:09 Dose: 3 units Documented by: Iron Carb/Multivit/[place]/Folic Acid (Multivitamin W/Minerals) 1 tab PO DAILY [facility] Last Admin: 10/23/19 08:13 Dose: 1 tab Documented by: Melatonin (Melatonin 3mg Tablet) 3 mg PO HSP PRN PRN Reason: Insomnia Metformin HCl (Glucophage) 1,000 mg PO BIDCC [facility] Last Admin: 10/23/19 07:09 Dose: 1,000 mg Documented by: Ondansetron HCl (Zofran Odt) 4 mg SL Q4-6HP PRN; Protocol PRN Reason: Nausea And Vomiting Ondansetron HCl (Zofran) 4 mg IV Q4-6HP PRN; Protocol PRN Reason: Nausea And Vomiting Polyethylene Glycol (Miralax) 17 gm PO DAILYP PRN PRN Reason: Constipation Potassium Chloride (Klor-Con) 40 meq PO DAILYP PRN PRN Reason: K+ < 3.5 Senna/Docusate Sodium (Senna Plus Tablet) 1 tab PO HS [facility] Last Admin: 10/22/19 20:10 Dose: Not Given Documented by: Sitagliptin Phosphate (Januvia) 100 mg PO DAILY [facility] Last Admin: 10/23/19 08:13 Dose: 100 mg Documented by: Sodium Chloride (Saline Flush) 10 ml IV Q8 [facility] Last Admin: 10/23/19 06:02 Dose: 10 ml Documented by: Thiamine HCl (Vitamin B1) 100 mg PO DAILY [facility] Last Admin: 10/23/19 08:13 Dose: 100 mg Documented by: Vancomycin HCl (Vancomycin Per Pharmacy) 1 order IV UD [facility]; Protocol A/P Narrative A/P Narrative: * Diabetic left fourth toe ulcer with surrounding cellulitis-Betasept cocci on cultures. Wound care on board. Ongoing debridement. De-escalate antibiotics * Hyperglycemic hyperosmolar state-poor adherence to medications. A1c over 14. Start metformin/Glucotrol/and continue basal prandial insulin/diabetic diet/diabetic education. * Diabetic neuropathy-continue gabapentin * Pseudohyponatremia resolved * Obesity with a BMI over 35. Continue directed therapy/dietary intervention * Full code * Prophylax Heparin Plan * Continue wound care per Dr. Campos * De-escalate antibiotic coverage * Diabetes management/diabetic education/basal panel insulin/CC diet * Weight loss intervention counseling * Continue PT OT nutrition support * Case management to coordinate outpatient follow-up/insurance applications Time Spent With Patient Time: Total time spent is greater than 50% in coordination of care (as documented) at patient's floor/unit and/or counseling patient: QUALITY VTE Deep Vein Thrombosis/Pulmonary Embolism Present on Admission: No
[2019-10-23] MEDS: glipiZIDE 2.5 MG TAB.XL.24H PO SCH (17:01)
--- NOTE | 2019-10-23 17:12 | General Surgery Progress Note ---
SUBJECTIVE Subjective Patient information: Note initiated : 10/23/19 at 5:05 pm Service Date, if different from initiated Date: [] Patient: Deisy Rutledge 53 y/o F admitted on 10/21/19 for infected foot. Chief Complaint: [] Interval history: Narrative: Additional PMFSH (Level 3 Only): Patient seen on rounds with nurse and Dr. Lemos,Hospitalist Physician. Patient had an uneventful night. LOCAL wound care for left foot SSSTI is ongoing. Uncontrolled diabetes improving. Constitutional Vitals: Vital Signs Temp Pulse Resp BP Pulse Ox 97.2 F 94 H 18 137/78 98 10/23/19 12:00 10/23/19 12:00 10/23/19 12:00 10/23/19 12:00 10/23/19 12:00 Period Temp Pulse Resp BP Sys/Cain Pulse Ox Last 24 Hr 97.2 F-99.4 F 82-97 16-20 107-137/71-83 93-98 Intake and Output 10/23/19 10/23/19 10/23/19 05:59 13:59 21:59 Intake Total 1000 100 400 Output Total 2600 2 Balance 1000 -2500 398 Intake & Output: Intake & Output 10/23/19 10/23/19 10/23/19 05:59 13:59 21:59 Intake Total 1000 100 400 Output Total 2600 2 Balance 1000 -2500 398 Intake: IV 550 100 Zosyn 3.375 gm In Dextrose 5% 50 100 in Water 50 ml @ 100 mls/hr IV Q6H [facility] Rx#:[id number] Vancomycin 1,500 mg In Sodium 500 Chloride 0.9% 500 ml @ 250 mls/ hr IV Q12H [facility] Rx#:[id number] Oral 450 400 Output: Urine Catheter Amount 500 Void Amount 2100 Urine/Stool Mix 2 Other: Urine Appearance Clear Clear Urine Color Dark Yellow Bright Yellow Urine Odor Normal Normal Stool Size Moderate Small Stool Color Brown Stool Consistency Soft Soft Loose Loose # Voids 2 # Bowel Movements 1 Exam: AVSS. NO changes LESLIE. L/E Resolving inflammatory changes Wound c/s Beta Strep. Sensitivities pending. Patient is responding to local wound care A/P Narrative A/P Narrative: Assessment; Responding to local wound care. Need to continue with current management. AWAIT developments regarding discharge planning. Spoke with case management. Patient will need continuity of care after discharge . Plan: Continue present treatment Await wound culture and sensitivity results. Await input from case management for continuity of care. Time Spent With Patient Time: Total time spent is greater than 50% in coordination of care (as documented) at patient's floor/unit and/or counseling patient: Total time spent with greater than 50% in coordination of care (as documented) at patient's floor/unit and/or counseling patient:: 25 - 35 minutes
[2019-10-23] MEDS: SENNOSIDES/DOCUSATE SODIUM 1 TAB TABLET PO SCH (21:51)
[2019-10-24] MEDS: PIPERACILLIN SODIUM/TAZOBACTAM 3.375 GM in DEXTROSE 5% IN WATER 50 ML IV SCH ×2 (05:57→12:28)
[2019-10-24] MEDS: 0.9 % SODIUM CHLORIDE 10 ML SYRINGE IV SCH ×4 (05:58→22:01)
[2019-10-24 06:51] LABS: Hematocrit 30.5 % (34.1-44.9); Hemoglobin 10.2 g/dL (11.2-15.7); Mean Cell Volume 80.3 fL (80.0-100.0); Mean Corpuscular HGB Conc 33.4 g/dL (31.0-36.0); Mean Platelet Volume 11.3 fL (7.4-10.4); Platelet Count 249 K/mcL (140-440); Red Cell Distribution Width 12.1 % (11.5-14.5); WBC 6.9 K/mcL (4.50-11.00)
[2019-10-24 07:30] LABS: ALT/SGPT 11 U/l (0-40); AST/SGOT 13 U/l (0-37); Albumin 2.4 gm/dL (3.2-5.2); Albumin/Globulin Ratio 0.8 (1.0-2.3); Alkaline Phosphatase 81 U/L (39-117); Bilirubin,Direct < 0.2 mg/dL (0.0-0.3); Bilirubin,Total 0.5 mg/dL (0.0-1.0); Blood Urea Nitrogen 19 mg/dl (6-20); Calcium 8.4 mg/dl (8.6-10.4); Carbon Dioxide 23 mmol/L (22-30); Chloride 97 mmol/L (96-108); Globulin 2.9 gm/dL (2.2-3.7); Glomerular Filtration Rate 58; Glucose 193 mg/dL (70-105); Lactate Dehydrogenase 156 U/L (94-250); Phosphorous 4.1 mg/dL (2.7-4.5); Triglycerides 241 mg/dl (<150); Uric Acid 4.3 mg/dL (2.5-8.0)
[2019-10-24] MEDS: INSULIN LISPRO 1 UNIT/0.01 ML UNIT SQ SCH ×4 (07:48→21:59)
[2019-10-24] MEDS: glipiZIDE 2.5 MG TAB.XL.24H PO SCH ×2 (07:48→16:40)
[2019-10-24] MEDS: metFORMIN 500 MG TABLET PO SCH ×2 (07:48→17:27)
[2019-10-24] MEDS: INSULIN GLARGINE, HUMAN 1 UNIT/0.01 ML SQ SCH ×2 (07:58→22:00)
[2019-10-24] MEDS: ACETAMINOPHEN 325 MG TABLET PO PRN ×3 (07:59→22:00)
[2019-10-24] MEDS: CYANOCOBALAMIN (VITAMIN B-12) 500 MCG TABLET PO SCH ×2 (07:59→22:00)
[2019-10-24] MEDS: HEPARIN 5,000 UNIT/ML VIAL SQ SCH ×2 (07:59→21:59)
[2019-10-24] MEDS: GABAPENTIN 100 MG CAPSULE PO SCH ×3 (08:00→22:00)
[2019-10-24] MEDS: DOCUSATE SODIUM 100 MG CAPSULE PO SCH ×2 (08:00→21:59)
[2019-10-24] MEDS: THIAMINE 100 MG TABLET PO SCH (08:00)
[2019-10-24] MEDS: MULTIVIT,THER IRON,CA,FA & MIN 1 TABLET PO SCH (08:00)
[2019-10-24] MEDS: sitaGLIPtin 100 MG TABLET PO SCH (08:22)
[2019-10-24 09:25] LABS: Vancomycin,Random 8.4 ug/mL
[2019-10-24 09:35] LABS: Band Neutrophils % 1 % (0-10); Basophils % (Manual) 1 % (0-2); Lymphocytes % 19 % (15-49); Monocytes % (Manual) 6 % (1-12); Platelet Estimate NORMAL (NORMAL); RBC Morphology NORMAL (NORMAL); Reactive Lymphocytes 3 % (0-2); Segmented Neutrophils % 70 % (38-78)
[2019-10-24] MEDS ORDERED: VANCOMYCIN 1,000 MG in 0.9 % SODIUM CHLORIDE 250 ML IV SCH (10:00)
--- NOTE | 2019-10-24 10:11 | Internal Med Progress Note ---
SUBJECTIVE Subjective Patient information: Note initiated : 10/24/19 at 10:06 am Service Date, if different from initiated Date: [] Patient: Deisy Rutledge 53 y/o F admitted on 10/21/19 for infected foot. Chief Complaint: [] Interval history: History of present illness: Ms. Rutledge is a 53 year old F with a history of poorly controlled diabetes/diabetic neuropathy and prior foot ulcers requiring right fourth toe amputation. She presents to the ER with worsening left fourth toe blistering/redness and swelling over the last few days. Denies recent trauma. Patient has a history of poor control diabetes with microvascular complication including neuropathy/peripheral vascular disease. She is out of insurance and has not followed up on her blood sugars for months. She is also out of her usual medication/metformin. She is trying to establish with a primary care physician. She presents to the ER for toe infection evaluation. Initial work-up was consistent with hyper glycemic hyperosmolar state with cellulitis changes left foot. Patient was started on antibiotics after cultures were drawn. Patient however left AMA to finish some work at home and returned within 2 hours later for evaluation and admission. Wound care Dr. Campos was consulted. Hospital service was requested for admission. At the time of evaluation patient is alert and oriented. She is able to provide answers to most the questions. She denies nausea vomiting, fever, chills, headache, photophobia or joint swelling. She denies any pain which is cons istent with her neuropathic extremities. 10/21-patient doing well. On antibiotic coverage. Wound care on board. No overnight events. Improving blood sugars. Uptitrate Lantus. Continue CC diet. 10/22-beta streptococci on wound culture. On antibiotic coverage. Left foot cellulitis and redness much improved. Ongoing debridement by Dr. mejia. A1c over 14. On basal prandial insulin/metformin. Add Glucotrol. Case management coordinating insurance applications. 10/23-patient doing a lot better. Ongoing wound care. Antibiotic coverage. Streptococcus on culture. Improved redness erythema induration. Ongoing debridement. Await further recommendations wound care service. Will likely discharge on Saturday with outpatient antibiotics. Improving blood sugars. Fasting 193. Constitutional Vitals: Vital Signs Temp Pulse Resp BP Pulse Ox 97.6 F 62 16 123/77 97 10/24/19 08:44 10/24/19 08:00 10/24/19 08:00 10/24/19 08:00 10/24/19 08:00 Period Temp Pulse Resp BP Sys/Cain Pulse Ox Last 24 Hr 97.1 F-99.2 F 62-101 16-20 105-137/67-80 94-98 Intake and Output 10/23/19 10/24/19 10/24/19 21:59 05:59 13:59 Intake Total 450 850 Output Total 2 1202 Balance 448 -352 Weight 101.605 kg Alert oriented No anxiety Nonlabored breathing Left foot cellulitis much improved Intake & Output: Intake & Output 10/23/19 10/24/19 10/24/19 21:59 05:59 13:59 Intake Total 450 850 Output Total 2 1202 Balance 448 -352 Weight 101.605 kg Intake: IV 50 50 Zosyn 3.375 gm In Dextrose 5% 50 50 in Water 50 ml @ 100 mls/hr IV Q6H [facility] Rx#:[id number] Oral 400 800 Output: Void Amount 1200 # of times incontinent of urine 2 Urine/Stool Mix 2 Other: Meal Dinner Percent of Meal Consumed 100% Feeding Ability Independent Urine Appearance Clear Clear Clear Urine Color Bright Yellow Dark Yellow Dark Yellow Urine Odor Normal Normal Stool Size Small Small Stool Color Brown Brown Stool Consistency Soft Loose Loose # Voids 2 2 # Bowel Movements 2 OBJ DATA Labs CBC & Chem 7: 10/24/19 05:25 10/24/19 05:25 Labs: Abnormal Lab Results 10/24/19 10/24/19 10/23/19 05:25 05:25 08:05 Hgb 10.2 L Hct 30.5 L MCV MPV 11.3 H Lymphocytes % Reactive Lymphocytes 3 H RBC Morphology Polychromasia Hypochromasia Microcytosis ESR Sodium 131 L Chloride BUN Glucose 193 H Hemoglobin A1c Calcium 8.4 L Total Protein 5.3 L Albumin 2.4 L Albumin/Globulin Ratio 0.8 L Triglycerides 241 H Urine Protein Urine Glucose (UA) Urine Ketones Urine Occult Blood Urine RBC Vancomycin Trough 20.8 H* 10/23/19 10/23/19 10/22/19 05:35 05:35 05:25 Hgb 10.6 L Hct 31.3 L MCV MPV 11.2 H Lymphocytes % Reactive Lymphocytes RBC Morphology Abnorm A Polychromasia 1+ A Hypochromasia Microcytosis ESR Sodium 131 L Chloride 95 L BUN 24 H 25 H Glucose 236 H 298 H Hemoglobin A1c Calcium 8.1 L 8.1 L Total Protein 5.0 L 5.1 L Albumin 2.2 L 2.3 L Albumin/Globulin Ratio 0.8 L 0.8 L Triglycerides 229 H 183 H Urine Protein Urine Glucose (UA) Urine Ketones Urine Occult Blood Urine RBC Vancomycin Trough 10/22/19 10/21/19 10/21/19 05:25 21:03 12:42 Hgb 10.7 L Hct 31.2 L MCV 79.0 L MPV 11.6 H Lymphocytes % 13 L Reactive Lymphocytes RBC Morphology Abnorm A Polychromasia Hypochromasia 1+ A Microcytosis 1+ A ESR 93 H Sodium Chloride BUN Glucose Hemoglobin A1c 14.5 H Calcium Total Protein Albumin Albumin/Globulin Ratio Triglycerides Urine Protein >=500 A Urine Glucose (UA) >=500 A Urine Ketones 5/tr A Urine Occult Blood 0.2 A Urine RBC 5 H Vancomycin Trough Meds: Medications Acetaminophen (Tylenol) 650 mg PO Q4-6HP PRN; Protocol PRN Reason: Per Pain Protocol/Fever > 101 Last Admin: 10/24/19 07:59 Dose: 650 mg Documented by: Bisacodyl (Dulcolax) 10 mg TN Q2-3DAYS PRN PRN Reason: Constipation Cyanocobalamin (Vitamin B-12) 1,000 mcg PO BID [facility] Stop: 10/26/19 09:01 Last Admin: 10/24/19 07:59 Dose: 1,000 mcg Documented by: Dextrose (Dextrose 50%) 0 ml IV UD PRN PRN Reason: Hypoglycemia Diagnostic Test (Pha) (Accu-Chek) 1 each FS ACHS [facility] Last Admin: 10/24/19 07:44 Dose: 1 each Documented by: Docusate Sodium (Colace) 100 mg PO BID [facility] Last Admin: 10/24/19 08:00 Dose: Not Given Documented by: Gabapentin (Neurontin) 100 mg PO TID [facility] Last Admin: 10/24/19 08:00 Dose: 100 mg Documented by: Glipizide (Glucotrol Xl) 2.5 mg PO BIDAC [facility] Last Admin: 10/24/19 07:48 Dose: Not Given Documented by: Glucose (Insta-Glucose) 15 gm PO PRN PRN PRN Reason: Hypoglycemia Heparin Sodium (Porcine) (Heparin) 5,000 unit SQ Q12 [facility] Last Admin: 10/24/19 07:59 Dose: 5,000 unit Documented by: Acetaminophen (Ofirmev) 650 mg in 65 mls @ 130 mls/hr IV Q6HP PRN; Protocol PRN Reason: Per Pain Protocol/Fever > 101 Magnesium Sulfate (Magnesium Sulfate) 2 gm in 50 mls @ 50 mls/hr IV UD PRN PRN Reason: MG = or < 1.7 Piperacillin Sod/Tazobactam (Sod 3.375 gm/ Dextrose) 50 mls @ 100 mls/hr IV Q6H [facility]; Protocol Last Admin: 10/24/19 05:57 Dose: 100 mls/hr Documented by: Insulin Glargine (Lantus) 10 unit SQ BID [facility] Last Admin: 10/24/19 07:58 Dose: 10 units Documented by: Insulin Human Lispro (Humalog) 0 unit SQ ACHS [facility]; Protocol Last Admin: 10/24/19 07:48 Dose: 3 units Documented by: Iron Carb/Multivit/[place]/Folic Acid (Multivitamin W/Minerals) 1 tab PO DAILY [facility] Last Admin: 10/24/19 08:00 Dose: 1 tab Documented by: Melatonin (Melatonin 3mg Tablet) 3 mg PO HSP PRN PRN Reason: Insomnia Metformin HCl (Glucophage) 1,000 mg PO BIDCC [facility] Last Admin: 10/24/19 07:48 Dose: 1,000 mg Documented by: Ondansetron HCl (Zofran Odt) 4 mg SL Q4-6HP PRN; Protocol PRN Reason: Nausea And Vomiting Ondansetron HCl (Zofran) 4 mg IV Q4-6HP PRN; Protocol PRN Reason: Nausea And Vomiting Polyethylene Glycol (Miralax) 17 gm PO DAILYP PRN PRN Reason: Constipation Potassium Chloride (Klor-Con) 40 meq PO DAILYP PRN PRN Reason: K+ < 3.5 Senna/Docusate Sodium (Senna Plus Tablet) 1 tab PO HS [facility] Last Admin: 10/23/19 21:51 Dose: Not Given Documented by: Sitagliptin Phosphate (Januvia) 100 mg PO DAILY [facility] Last Admin: 10/24/19 08:22 Dose: 100 mg Documented by: Sodium Chloride (Saline Flush) 10 ml IV Q8 [facility] Last Admin: 10/24/19 05:58 Dose: 10 ml Documented by: Thiamine HCl (Vitamin B1) 100 mg PO DAILY [facility] Last Admin: 10/24/19 08:00 Dose: 100 mg Documented by: Vancomycin HCl (Vancomycin Per Pharmacy) 1 order IV UD [facility]; Protocol A/P Narrative A/P Narrative: * Diabetic left fourth toe ulcer with surrounding cellulitis-Betastreptococci on cultures. Continue Rocephin. Will likely discharge in 48 hours pending further wound care/debridements. * Hyperglycemic hyperosmolar state-poor adherence to medications. A1c over 14. Improving on basal prandial insulin/metformin/Glucotrol/diabetic d iet/diabetic education. * Diabetic neuropathy-stable on gabapentin * Pseudohyponatremia resolved * Obesity with a BMI over 35. Continue directed therapy/dietary intervention * Full code * Prophylax Heparin Plan * Continue wound care per Dr. Campos * Continue Rocephin * Uptitrate basal prandial insulin * Weight loss intervention counseling * Continue PT OT nutrition support * Case management to coordinate outpatient follow-up/insurance applications Time Spent With Patient Time: Total time spent is greater than 50% in coordination of care (as documented) at patient's floor/unit and/or counseling patient: Total time spent with greater than 50% in coordination of care (as documented) at patient's floor/unit and/or counseling patient:: Greater than 35 minutes QUALITY VTE Deep Vein Thrombosis/Pulmonary Embolism Present on Admission: No
--- NOTE | 2019-10-24 13:13 | General Surgery Progress Note ---
SUBJECTIVE Subjective Patient information: Note initiated : 10/24/19 at 1:05 pm Service Date, if different from initiated Date: [] Patient: Deisy Rutldege 53 y/o F admitted on 10/21/19 for infected foot. Chief Complaint: [] Interval history: Narrative: Paatient had an uneventful night. DENIES any new symptoms. Wound dressing of LEFT foot was changed. Per nurse and hospitalist physician there is progressive resolution of inflammation and cellulitis. Constitutional Vitals: Vital Signs Temp Pulse Resp BP Pulse Ox 98.2 F 92 H 16 126/79 96 10/24/19 12:00 10/24/19 12:00 10/24/19 12:00 10/24/19 12:00 10/24/19 12:00 Period Temp Pulse Resp BP Sys/Cain Pulse Ox Last 24 Hr 97.1 F-99.2 F 62-101 - 105-133/67-80 94-97 Intake and Output 10/23/19 10/24/19 10/24/19 21:59 05:59 13:59 Intake Total 450 850 350 Output Total 2 1202 500 Balance 448 -352 -150 Weight 224 lb Intake & Output: Intake & Output 10/23/19 10/24/19 10/24/19 21:59 05:59 13:59 Intake Total 450 850 350 Output Total 2 1202 500 Balance 448 -352 -150 Weight 224 lb Intake: IV 50 50 50 Zosyn 3.375 gm In Dextrose 5% 50 50 50 in Water 50 ml @ 100 mls/hr IV Q6H [facility] Rx#:[id number] Oral 400 800 300 Output: Void Amount 1200 500 # of times incontinent of urine 2 Urine/Stool Mix 2 Other: Meal Dinner Breakfast Percent of Meal Consumed 100% 100% Feeding Ability Independent Urine Appearance Clear Clear Clear Urine Color Bright Yellow Dark Yellow Bright Yellow Urine Odor Normal Normal Stool Size Small Small Moderate Stool Color Brown Brown Brown Yellow Stool Consistency Soft Loose Soft Loose Loose # Voids 2 2 1 # Bowel Movements 2 1 Exam: AVSS. NO changes LESLIE. LEFT foot dressing CDI. Labs reviewed. Normal WBC. Wound c/s Beta strep (Agalactiae ) heavy growth . RESPONDING to local wound care and empiric IV antibiotics. Will continue same over the weekend. AWAIT final sensitivity results. A/P Narrative A/P Narrative: Assessment: Overall satisfactory progress and response to local wound care and medical management / I V antibiotics. Spoke with Case management yesterday. Plan: Continue current management. Anticipate discharge by Saturday10/26/2019 after review if sensitivities and final wound check. Time Spent With Patient Time: Total time spent is greater than 50% in coordination of care (as documented) at patient's floor/unit and/or counseling patient: Total time spent with greater than 50% in coordination of care (as documented) at patient's floor/unit and/or counseling patient:: less than 15 minutes
[2019-10-24] MEDS: cefTRIAXone 2 GM VIAL IM SCH (16:25)
[2019-10-24] MEDS: MELATONIN 3 MG TABLET PO PRN (22:00)
[2019-10-24] MEDS: SENNOSIDES/DOCUSATE SODIUM 1 TAB TABLET PO SCH (22:01)
[2019-10-25] MEDS: ACETAMINOPHEN 325 MG TABLET PO PRN (03:50)
[2019-10-25 06:42] LABS: Hemoglobin 10.3 g/dL (11.2-15.7); Mean Cell Volume 80.5 fL (80.0-100.0); Mean Corpuscular HGB Conc 33.2 g/dL (31.0-36.0); Mean Platelet Volume 11.2 fL (7.4-10.4); Platelet Count 258 K/mcL (140-440); RBC 3.85 M/mcL (3.59-5.38); Red Cell Distribution Width 12.1 % (11.5-14.5); WBC 6.3 K/mcL (4.50-11.00)
[2019-10-25 07:04] LABS: ALT/SGPT 13 U/l (0-40); AST/SGOT 15 U/l (0-37); Albumin 2.2 gm/dL (3.2-5.2); Albumin/Globulin Ratio 0.7 (1.0-2.3); Alkaline Phosphatase 82 U/L (39-117); Bilirubin,Direct < 0.2 mg/dL (0.0-0.3); Bilirubin,Total 0.3 mg/dL (0.0-1.0); Blood Urea Nitrogen 17 mg/dl (6-20); Calcium 8.4 mg/dl (8.6-10.4); Carbon Dioxide 24 mmol/L (22-30); Chloride 97 mmol/L (96-108); Globulin 3.1 gm/dL (2.2-3.7); Glomerular Filtration Rate 65; Glucose 196 mg/dL (70-105); Lactate Dehydrogenase 178 U/L (94-250); Phosphorous 3.9 mg/dL (2.7-4.5); Triglycerides 290 mg/dl (<150); Uric Acid 4.5 mg/dL (2.5-8.0)
[2019-10-25] MEDS: glipiZIDE 2.5 MG TAB.XL.24H PO SCH ×2 (07:30→16:59)
[2019-10-25] MEDS: metFORMIN 500 MG TABLET PO SCH ×2 (07:30→16:59)
[2019-10-25] MEDS: INSULIN LISPRO 1 UNIT/0.01 ML UNIT SQ SCH ×4 (07:30→21:51)
--- NOTE | 2019-10-25 08:05 | Internal Med Progress Note ---
SUBJECTIVE Subjective Patient information: Note initiated : 10/25/19 at 8:00 am Service Date, if different from initiated Date: [] Patient: Deisy Rutledge 53 y/o F admitted on 10/21/19 for infected foot. History of present illness: Ms. Rutledge is a 53 year old F with a history of poorly controlled diabetes/diabetic neuropathy and prior foot ulcers requiring right fourth toe amputation. She presents to the ER with worsening left fourth toe blistering/redness and swelling over the last few days. Denies recent trauma. Patient has a history of poor control diabetes with microvascular compl ication including neuropathy/peripheral vascular disease. She is out of insurance and has not followed up on her blood sugars for months. She is also out of her usual medication/metformin. She is trying to establish with a primary care physician. She presents to the ER for toe infection evaluation. Initial work-up was consistent with hyper glycemic hyperosmolar state with cellulitis changes left foot. Patient was started on antibiotics after cultures were drawn. Patient however left AMA to finish some work at home and returned within 2 hours later for evaluation and admission. Wound care Dr. Campos was consulted. Hospital service was requested for admission. At the time of evaluation patient is alert and oriented. She is able to provide answers to most the questions. She denies nausea vomiting, fever, chills, headache, photophobia or joint swelling. She denies any pain which is consistent with her neuropathic extremities. 10/21-patient doing well. On antibiotic coverage. Wound care on board. No overnight events. Improving blood sugars. Uptitrate Lantus. Continue CC diet. 10/22-beta streptococci on wound culture. On antibiotic coverage. Left foot cellulitis and redness much improved. Ongoing debridement by Dr. mejia. A1c over 14. On basal prandial insulin/metformin. Add Glucotrol. Case management coordinating insurance applications. 10/23-patient doing a lot better. Ongoing wound care. Antibiotic coverage. Streptococcus on culture. Improved redness erythema induration. Ongoing debridement. Await further recommendations wound care service. Will likely discharge on Saturday with outpatient antibiotics. Improving blood sugars. Fasting 193. -10/24-patient doing well. No overnight events. No concerns per staff. Ongoing wound care. Likely discharge in 24 hours on outpatient antibiotics/wound care follow-up. Blood sugars at goal. Continue PT OT/nutrition support. Interval history: Narrative: Constitutional Vitals: Vital Signs Temp Pulse Resp BP Pulse Ox 98.5 F 84 16 112/69 90 10/25/19 03:42 10/25/19 03:42 10/25/19 03:42 10/25/19 03:42 10/25/19 03:42 Period Temp Pulse Resp BP Sys/Cain Pulse Ox Last 24 Hr 97.6 F-98.5 F 84-96 16-18 112-128/69-79 90-97 Intake and Output 10/24/19 10/25/19 10/25/19 21:59 05:59 13:59 Intake Total 1900 450 Output Total 1999 550 Balance -100 -100 Weight 102.965 kg alert and oriented non labored breathing no anxiety Intake & Output: Intake & Output 10/24/19 10/25/19 10/25/19 21:59 05:59 13:59 Intake Total 1900 450 Output Total 1999 550 Balance -100 -100 Weight 102.965 kg Intake: IV 300 Zosyn 3.375 gm In Dextrose 5% 50 in Water 50 ml @ 100 mls/hr IV Q6H [facility] Rx#:[id number] Vancomycin 1,000 mg In Sodium 250 Chloride 0.9% 250 ml @ 250 mls/ hr IV Q12H [facility] Rx#:[id number] Oral 1600 450 Output: Void Amount 2000 550 Other: Urine Appearance Clear Clear Urine Color Bright Yellow Bright Yellow Urine Odor Normal Normal Stool Size Moderate Moderate Stool Color Brown Brown Stool Consistency Soft Soft Loose Loose # Bowel Movements 1 1 OBJ DATA Labs CBC & Chem 7: 10/25/19 05:30 10/25/19 05:30 Labs: Abnormal Lab Results 10/25/19 10/25/19 10/24/19 05:30 05:30 05:25 Hgb 10.3 L Hct 31.0 L MPV 11.2 H Reactive Lymphocytes RBC Morphology Polychromasia Sodium 130 L 131 L Chloride BUN Glucose 196 H 193 H Calcium 8.4 L 8.4 L Total Protein 5.3 L 5.3 L Albumin 2.2 L 2.4 L Albumin/Globulin Ratio 0.7 L 0.8 L Triglycerides 290 H 241 H Vancomycin Trough 10/24/19 10/23/19 10/23/19 05:25 08:05 05:35 Hgb 10.2 L Hct 30.5 L MPV 11.3 H Reactive Lymphocytes 3 H RBC Morphology Polychromasia Sodium 131 L Chloride 95 L BUN 24 H Glucose 236 H Calcium 8.1 L Total Protein 5.0 L Albumin 2.2 L Albumin/Globulin Ratio 0.8 L Triglycerides 229 H Vancomycin Trough 20.8 H* 10/23/19 05:35 Hgb 10.6 L Hct 31.3 L MPV 11.2 H Reactive Lymphocytes RBC Morphology Abnorm A Polychromasia 1+ A Sodium Chloride BUN Glucose Calcium Total Protein Albumin Albumin/Globulin Ratio Triglycerides Vancomycin Trough Meds: Medications Acetaminophen (Tylenol) 650 mg PO Q4-6HP PRN; Protocol PRN Reason: Per Pain Protocol/Fever > 101 Last Admin: 10/25/19 03:50 Dose: 650 mg Documented by: Bisacodyl (Dulcolax) 10 mg SC Q2-3DAYS PRN PRN Reason: Constipation Ceftriaxone Sodium (Rocephin) 2 gm IM Q24H [facility]; Protocol Stop: 10/26/19 15:29 Last Admin: 10/24/19 16:25 Dose: 2 gm Documented by: Cyanocobalamin (Vitamin B-12) 1,000 mcg PO BID [facility] Stop: 10/26/19 09:01 Last Admin: 10/24/19 22:00 Dose: 1,000 mcg Documented by: Dextrose (Dextrose 50%) 0 ml IV UD PRN PRN Reason: Hypoglycemia Diagnostic Test (Pha) (Accu-Chek) 1 each FS ACHS [facility] Last Admin: 10/25/19 07:30 Dose: 1 each Documented by: Docusate Sodium (Colace) 100 mg PO BID [facility] Last Admin: 10/24/19 21:59 Dose: Not Given Documented by: Gabapentin (Neurontin) 100 mg PO TID [facility] Last Admin: 10/24/19 22:00 Dose: 100 mg Documented by: Glipizide (Glucotrol Xl) 2.5 mg PO BIDAC [facility] Last Admin: 10/25/19 07:30 Dose: 2.5 mg Documented by: Glucose (Insta-Glucose) 15 gm PO PRN PRN PRN Reason: Hypoglycemia Heparin Sodium (Porcine) (Heparin) 5,000 unit SQ Q12 [facility] Last Admin: 10/24/19 21:59 Dose: 5,000 unit Documented by: Acetaminophen (Ofirmev) 650 mg in 65 mls @ 130 mls/hr IV Q6HP PRN; Protocol PRN Reason: Per Pain Protocol/Fever > 101 Magnesium Sulfate (Magnesium Sulfate) 2 gm in 50 mls @ 50 mls/hr IV UD PRN PRN Reason: MG = or < 1.7 Insulin Glargine (Lantus) 10 unit SQ BID [facility] Last Admin: 10/24/19 22:00 Dose: 10 units Documented by: Insulin Human Lispro (Humalog) 0 unit SQ ACHS [facility]; Protocol Last Admin: 10/25/19 07:30 Dose: 3 units Documented by: Iron Carb/Multivit/[place]/Folic Acid (Multivitamin W/Minerals) 1 tab PO DAILY [facility] Last Admin: 10/24/19 08:00 Dose: 1 tab Documented by: Melatonin (Melatonin 3mg Tablet) 3 mg PO HSP PRN PRN Reason: Insomnia Last Admin: 10/24/19 22:00 Dose: 3 mg Documented by: [facility] Last Admin: 10/25/19 07:30 Dose: 1,000 mg Documented by: Ondansetron HCl (Zofran Odt) 4 mg SL Q4-6HP PRN; Protocol PRN Reason: Nausea And Vomiting Ondansetron HCl (Zofran) 4 mg IV Q4-6HP PRN; Protocol PRN Reason: Nausea And Vomiting Polyethylene Glycol (Miralax) 17 gm PO DAILYP PRN PRN Reason: Constipation Potassium Chloride (Klor-Con) 40 meq PO DAILYP PRN PRN Reason: K+ < 3.5 Senna/Docusate Sodium (Senna Plus Tablet) 1 tab PO HS [facility] Last Admin: 10/24/19 22:01 Dose: Not Given Documented by: Sitagliptin Phosphate (Januvia) 100 mg PO DAILY [facility] Last Admin: 10/24/19 08:22 Dose: 100 mg Documented by: Thiamine HCl (Vitamin B1) 100 mg PO DAILY [facility] Last Admin: 10/24/19 08:00 Dose: 100 mg Documented by: A/P Narrative A/P Narrative: * Diabetic left fourth toe ulcer with surrounding cellulitis-Betastreptococci on cultures. On Rocephin. Will likely discharge in 24 hours pending further wound care/debridements. * Hyperglycemic hyperosmolar state-poor adherence to medications. A1c over 14. Improving on basal prandial insulin/metformin/Glucotrol/diabetic diet/diabetic education. * Diabetic neuropathy-stable on gabapentin * Pseudohyponatremia resolved * Obesity with a BMI over 35. Continue directed therapy/dietary intervention * Full code * Prophylax Heparin Plan * Continue wound care per Dr. Campos * Continue Rocephin * CCD/basal prandial insulin * Weight loss intervention counseling * Continue PT OT nutrition support * Case management to coordinate outpatient follow-up/insurance applications Time Spent With Patient Time: Total time spent is greater than 50% in coordination of care (as documented) at patient's floor/unit and/or counseling patient: QUALITY VTE Deep Vein Thrombosis/Pulmonary Embolism Present on Admission: No
[2019-10-25 09:09] LABS: Eosinophils % (Manual) 5 % (0-7); Lymphocytes % 12 % (15-49); Monocytes % (Manual) 6 % (1-12); Platelet Estimate NORMAL (NORMAL); RBC Morphology NORMAL (NORMAL); Segmented Neutrophils % 77 % (38-78)
[2019-10-25] MEDS: THIAMINE 100 MG TABLET PO SCH (09:20)
[2019-10-25] MEDS: sitaGLIPtin 100 MG TABLET PO SCH (09:20)
[2019-10-25] MEDS: MULTIVIT,THER IRON,CA,FA & MIN 1 TABLET PO SCH (09:20)
[2019-10-25] MEDS: CYANOCOBALAMIN (VITAMIN B-12) 500 MCG TABLET PO SCH ×2 (09:20→20:41)
[2019-10-25] MEDS: GABAPENTIN 100 MG CAPSULE PO SCH ×3 (09:20→20:41)
[2019-10-25] MEDS: cefTRIAXone 2 GM VIAL IM SCH (09:21)
[2019-10-25] MEDS: INSULIN GLARGINE, HUMAN 1 UNIT/0.01 ML SQ SCH ×2 (09:21→20:48)
[2019-10-25] MEDS: HEPARIN 5,000 UNIT/ML VIAL SQ SCH ×2 (09:21→20:41)
[2019-10-25] MEDS: DOCUSATE SODIUM 100 MG CAPSULE PO SCH ×2 (09:21→20:42)
[2019-10-25] MEDS: MELATONIN 3 MG TABLET PO PRN (20:41)
[2019-10-25] MEDS: SENNOSIDES/DOCUSATE SODIUM 1 TAB TABLET PO SCH (20:42)
[2019-10-25] MEDS: IBUPROFEN 200 MG TABLET PO PRN (23:31)
[2019-10-26 06:31] LABS: Hemoglobin 10.1 g/dL (11.2-15.7); Mean Cell Volume 80.4 fL (80.0-100.0); Mean Corpuscular HGB Conc 33.7 g/dL (31.0-36.0); Mean Platelet Volume 10.9 fL (7.4-10.4); Platelet Count 263 K/mcL (140-440); RBC 3.73 M/mcL (3.59-5.38); Red Cell Distribution Width 12.1 % (11.5-14.5); WBC 6.1 K/mcL (4.50-11.00)
[2019-10-26 06:59] LABS: ALT/SGPT 14 U/l (0-40); AST/SGOT 16 U/l (0-37); Albumin 2.3 gm/dL (3.2-5.2); Albumin/Globulin Ratio 0.7 (1.0-2.3); Alkaline Phosphatase 88 U/L (39-117); Bilirubin,Direct < 0.2 mg/dL (0.0-0.3); Bilirubin,Total 0.3 mg/dL (0.0-1.0); Blood Urea Nitrogen 19 mg/dl (6-20); Calcium 8.7 mg/dl (8.6-10.4); Carbon Dioxide 23 mmol/L (22-30); Chloride 98 mmol/L (96-108); Globulin 3.2 gm/dL (2.2-3.7); Glomerular Filtration Rate 58; Glucose 100 mg/dL (70-105); Lactate Dehydrogenase 160 U/L (94-250); Triglycerides 250 mg/dl (<150); Uric Acid 5.7 mg/dL (2.5-8.0)
[2019-10-26] MEDS: IBUPROFEN 200 MG TABLET PO PRN (07:34)
[2019-10-26] MEDS: INSULIN LISPRO 1 UNIT/0.01 ML UNIT SQ SCH ×2 (07:34→11:29)
[2019-10-26] MEDS: metFORMIN 500 MG TABLET PO SCH (07:35)
[2019-10-26 08:28] LABS: Band Neutrophils % 2 % (0-10); Eosinophils % (Manual) 2 % (0-7); Lymphocytes % 15 % (15-49); Monocytes % (Manual) 3 % (1-12); Platelet Estimate NORMAL (NORMAL); RBC Morphology NORMAL (NORMAL); Segmented Neutrophils % 78 % (38-78)
[2019-10-26] MEDS: HEPARIN 5,000 UNIT/ML VIAL SQ SCH (09:27)
[2019-10-26] MEDS: sitaGLIPtin 100 MG TABLET PO SCH (09:28)
[2019-10-26] MEDS: MULTIVIT,THER IRON,CA,FA & MIN 1 TABLET PO SCH (09:28)
[2019-10-26] MEDS: CYANOCOBALAMIN (VITAMIN B-12) 500 MCG TABLET PO SCH (09:28)
[2019-10-26] MEDS: GABAPENTIN 100 MG CAPSULE PO SCH (09:28)
[2019-10-26] MEDS: THIAMINE 100 MG TABLET PO SCH (09:29)
[2019-10-26] MEDS: DOCUSATE SODIUM 100 MG CAPSULE PO SCH (09:29)
--- NOTE | 2019-10-26 09:34 | Discharge Summary ---
Discharge Provider Provider Patient information: Note initiated : 10/26/19 at 9:29 am Service Date, if different from initiated Date: [] Patient: Deisy Rutledge 53 y/o F admitted on 10/21/19 for infected foot. Chief Complaint: Date of admission: 10/21/19 19:29 Discharge date: 10/26/19 Primary care physician: PCP No Consults: 10/21/19 Consult to Physician [CONS] Stat Comment: Consulting Provider: Mike Campos Reason For Exam: Physician to Consult 10/21/19 17:38 Consult to Physician [CONS] Stat Comment: Consulting Provider: Rodolfo Lemos Reason For Exam: Physician to Consult 10/21/19 19:33 Consult to Physician [CONS] Stat Comment: Consulting Provider: Mike Campos Reason For Exam: Physician to Consult Discharge Meds Discharge Medications Home Medications blood-glucose meter #100 each 11/19/17 [Rx Confirmed 10/21/19 Last Taken Unknown] lancets #100 each 12/17/17 [Rx Confirmed 10/21/19 Last Taken Unknown] blood sugar diagnostic #100 each 03/06/19 [Rx Confirmed 10/21/19 Last Taken Un known] ibuprofen 400 mg PO Q6H PRN 10/21/19 [History Confirmed 10/21/19 Last Taken 10/20/19] cephalexin [Keflex] 500 mg PO Q8H 10 Days #30 cap 10/26/19 [Rx Last Taken Unknown] gabapentin 100 mg PO TID #60 cap 10/26/19 [Rx Last Taken Unknown] glipizide 5 mg PO BIDAC #60 tab 10/26/19 [Rx Last Taken Unknown] metformin 1,000 mg PO BIDCC #60 tab 10/26/19 [Rx Last Taken Unknown] COURSE Hospital Course Hospital Course: Discharge diagnosis * Diabetic left fourth toe ulcer with surrounding cellulitis-Betastreptococci on cultures. Initially managed on Rocephin. Discharging on additional 10 days oral Keflex/continued wound care and follow-up with chest clinic/wound care physician Dr. Campos * Hyperglycemic hyperosmolar state-poor adherence to medications due to lack of insurance. A1c over 14. Continue glipizide/metformin. Patient reluctant to use insulin due to cost issues. Advised to follow-up with [facility] and subsidized insulin referral program via [facility] clinics * Diabetic neuropathy-continue gabapentin * Pseudohyponatremia resolved * Obesity with a BMI over 35. Recommend aggressive weight loss/dietary m odification to improve insulin sensitivity Brief hospital course History of present illness: Ms. Rutledge is a 53 year old F with a history of poorly controlled diabetes/diabetic neuropathy and prior foot ulcers requiring right fourth toe amputation. She presents to the ER with worsening left fourth toe blistering/redness and swelling over the last few days. Denies recent trauma. Patient has a history of poor control diabetes with microvascular complication including neuropathy/peripheral vascular disease. She is out of insurance and has not followed up on her blood sugars for months. She is also out of her usual medication/metformin. She is trying to establish with a primary care physician. She presents to the ER for toe infection evaluation. Initial work-up was consistent with hyper glycemic hyperosmolar state with cellulitis changes left foot. Patient was started on antibiotics after cultures were drawn. Patient however left AMA to finish some work at home and returned within 2 hours later for evaluation and admission. Wound care Dr. Campos was consulted. Hospital service was requested for admission. At the time of evaluation patient is alert and oriented. She is able to provide answers to most the questions. She denies nausea vomiting, fever, chills, headache, photophobia or joint swelling. She denies any pain which is consis tent with her neuropathic extremities. 10/21-patient doing well. On antibiotic coverage. Wound care on board. No overnight events. Improving blood sugars. Uptitrate Lantus. Continue CC diet. 10/22-beta streptococci on wound culture. On antibiotic coverage. Left foot cellulitis and redness much improved. Ongoing debridement by Dr. mejia. A1c over 14. On basal prandial insulin/metformin. Add Glucotrol. Case management coordinating insurance applications. 10/23-patient doing a lot better. Ongoing wound care. Antibiotic coverage. Streptococcus on culture. Improved redness erythema induration. Ongoing debridement. Await further recommendations wound care service. Will likely discharge on Saturday with outpatient antibiotics. Improving blood sugars. Fasting 193. -10/24-patient doing well. No overnight events. No concerns per staff. Ongoing wound care. Likely discharge in 24 hours on outpatient antibiotics/wound care follow-up. Blood sugars at goal. Continue PT OT/nutrition support. 10/25-patient discharging advised to follow primary care physician at [facility] clinic/Dr. Campos wound care clinic/and continue aggressive weight loss measures/diabetes control including foot care/diabetic diet and oral diabetic medication until insulins can be covered by insurance. Details of instructions as below Discharge diagnosis: . Time Spent with Patient Time attestation: Total time spent providing and/or coordinating discharge services: EXAM Constitutional Vitals: Temp Pulse Resp BP Pulse Ox 97.3 F 85 16 116/75 93 10/26/19 06:45 10/26/19 06:45 10/26/19 06:45 10/26/19 06:45 10/26/19 06:45 Discharge Data Data Completed and Pending Labs on day of discharge: Labs from last 24 hours 10/26/19 10/26/19 05:35 05:35 WBC 6.1 RBC 3.73 Hgb 10.1 L Hct 30.0 L MCV 80.4 MCH 27.1 MCHC 33.7 RDW 12.1 Plt Count 263 MPV 10.9 H Total Counted 100 Seg Neutrophils % 78 Band Neutrophils % 2 Lymphocytes % 15 Monocytes % (Manual) 3 Eosinophils % (Manual) 2 Platelet Estimate Normal RBC Morphology Normal Sodium 133 Potassium 3.9 Chloride 98 Carbon Dioxide 23 Anion Gap 12.0 BUN 19 Creatinine 1.1 GFR Calculation 58 Glucose 100 Uric Acid 5.7 Calcium 8.7 Phosphorus 5.0 H Magnesium 1.9 Total Bilirubin 0.3 Direct Bilirubin < 0.2 GGT 28 AST 16 ALT 14 Alkaline Phosphatase 88 Lactate Dehydrogenase 160 Total Protein 5.5 L Albumin 2.3 L Globulin 3.2 Albumin/Globulin Ratio 0.7 L Triglycerides 250 H Discharge Plan Patient/Caregiver Discharge Instructions Activity: increase activity as tolerated Diet: Consistent Carbohydrate Instructions: Type 2 Diabetes in Adults: New Diagnosis (GEN) Activity Restrictions/Additional Instructions: Follow-up with [facility] clinic as advised Continue metformin/glipizide Recommend insulins if approved by insurance through [facility] clinic( at this time patient is reluctant to use due to high cost of insulin) Continue antibiotic for additional 10 days Stand Alone Forms: Work/Release Restrictions Prescriptions: New cephalexin [Keflex] 500 mg capsule 500 mg PO Q8H 10 Days Qty: 30 RF: 0 gabapentin 100 mg Capsule 100 mg PO TID Qty: 60 RF: 0 metformin 500 mg Tablet 1,000 mg PO BIDCC Qty: 60 RF: 0 glipizide 2.5 mg Tablet Extended Release 24hr 5 mg PO BIDAC Qty: 60 RF: 0 No Action (DME) Truetest Test Strips strip See Dose Instructions .ROUTE .MEDSUPPLY Qty: 100 RF: 1 (DME) blood-glucose meter misc See Dose Instructions .ROUTE .MEDSUPPLY Qty: 100 RF: 6 (DME) lancets [ReliOn Ultra Thin Plus Lancets] misc See Dose Instructions .ROUTE .MEDSUPPLY Qty: 100 RF: 1 ibuprofen 200 mg Capsule 400 mg PO Q6H PRN (Reason: Pain) RF: 0 Other Ambulatory Orders: Walking Shoe (ONCE) Location: None Selected Ordered By: Mike Campos Follow Up Plan Patient Disposition: Home, Self-Care Prognosis: Fair Overall status at discharge: patient is progressing back to baseline Discharge Orders: Discharge Order (Routine); Ordered 10/26/19 Ordered By: Rodolfo ISSA VTE Deep Vein Thrombosis/Pulmonary Embolism Present on Admission: No
[2019-10-26] MEDS: glipiZIDE 2.5 MG TAB.XL.24H PO SCH (09:36)
--- NOTE | 2019-10-26 09:37 | General Surgery Progress Note ---
SUBJECTIVE Subjective Patient information: Note initiated : 10/26/19 at 9:25 am Service Date, if different from initiated Date: [] Patient: Deisy Rutledge 53 y/o F admitted on 10/21/19 for infected foot. Chief Complaint: [] Interval history: Narrative: Additional PMFSH (Level 3 Only): Saw patient with Simin SHARP, In Patient wound care nurse. Labs reviewed. Constitutional Vitals: Vital Signs Temp Pulse Resp BP Pulse Ox 97.3 F 85 16 116/75 93 10/26/19 06:45 10/26/19 06:45 10/26/19 06:45 10/26/19 06:45 10/26/19 06:45 Period Temp Pulse Resp BP Sys/Cain Pulse Ox Last 24 Hr 97.3 F-98.5 F 67-97 14-18 106-137/68-90 92-99 Intake and Output 10/25/19 10/26/19 10/26/19 21:59 05:59 13:59 Intake Total 1200 700 Output Total 2202 1000 Balance -1002 700 -1000 Weight 230 lb 5 oz Intake & Output: Intake & Output 10/25/19 10/26/19 10/26/19 21:59 05:59 13:59 Intake Total 1200 700 Output Total 2202 1000 Balance -1002 700 -1000 Weight 230 lb 5 oz Intake: Oral 1200 700 Output: Urine Catheter Amount 1000 Void Amount 1200 1000 Urine/Stool Mix 2 Other: Meal Lunch Percent of Meal Consumed 75% Feeding Ability Assist with Tray Set Up Urine Appearance Clear Clear Urine Color Dark Yellow Straw Urine Odor Normal Normal Stool Size Moderate Stool Color Brown Stool Consistency Soft # Voids 1 1 # Bowel Movements 1 # of times incontinent of 0 Bowels Exam: AVSS. No changes LESLIE LE: Resolved forefoot cellulitis changes. LEFT fourth to soft tissue edema and degloving of skin. Open wound extends to synovial structures MPJ. C/S: Pansensitive Strep agalactiae . Essentially, all soft tissue infection and demarcation at MPJ level. A/P Narrative A/P Narrative: Assessment: Resolved cellulitis LEFT foot. Edematous fourth toe with DFU Stage 4. Degloving of skin. Plan: Selective debridement of toe. OK for discharging patient with following instructions. # 1. Local wound care. Daily clean wounds and apply Bacitracin to open areas of toe and plain gauze. cover with Kerlix. NON WEIGHT BEARING and off loading with walk about scooter or walker All toes off loading with DARCO wedge shoe, when standing or pivoting during position change . # 2. O K to discharge on PO antibiotics per hospitalist (2-3 weeks) see culture report # 3. Patient to establish with PCP. ?? [facility]. # 4. Follow up at wound care center in 1 week. # 5. F/U at wound center in 1 week. Time Spent With Patient Time: Total time spent is greater than 50% in coordination of care (as documented) at patient's floor/unit and/or counseling patient: Total time spent with greater than 50% in coordination of care (as documented) at patient's floor/unit and/or counseling patient:: Greater than 35 minutes
--- NOTE | 2019-10-26 09:49 | General Surgery Procedure Note ---
Date of procedure: Note initiated : 10/26/19 at 9:46 am Service Date, if different from initiated Date: [] Pre-op diagnosis: open wound LEFT 4th toe Post-op diagnosis: same Procedure: Bedside debridement. Anesthesia: none Surgeon: Mike Campos Estimated blood loss: 0 Pathology: none sent Description of procedure: Excision of non viable demarcated skin Condition: stable Disposition: floor
--- NOTE | 2019-10-26 10:00 | Procedure Note ---
DATE OF PROCEDURE: 10/26/2019 PREOPERATIVE DIAGNOSIS: Open wound, left fourth toe. POSTOPERATIVE DIAGNOSIS: Open wound, left fourth toe. OPERATION: Excision of devitalized demarcated skin from the toe. SURGEON: Mike Campos M.D. INDICATION: This patient is admitted to the hospital with cellulitis and complex soft tissue infection of left fourth toe. Cellulitis of the foot has resolved. There is devitalized skin around the open wound and plantar surface of left fourth toe. PROCEDURE: After obtaining informed verbal consent, I proceeded to clean this toe and the space between the toes with Betadine swab. Using a pickup and scissors, the nonviable skin was excised. The wound was dressed with bacitracin ointment, gauze between the toes, and Kerlix bandage. The procedure was well tolerated. No anesthesia was used. Blood loss zero. VD:ricco Job ID: [id number] Doc ID: [id number] Mike Campos MD
[2019-10-26] MEDS: INSULIN GLARGINE, HUMAN 1 UNIT/0.01 ML SQ SCH (10:22)
[2019-10-26] MEDS: cefTRIAXone 2 GM VIAL IM SCH (10:23)
== END 2019-10-26 14:08 | disposition home or self-care (01) | DRG 638 ==
LOC: ED 17:14 → MEDSUR 19:29
PROVIDERS: ADMIT Internal Medicine; ATTEND Internal Medicine

== ENCOUNTER 2019-10-30 12:46 | Inpatient (IN) ==
[2019-10-30] MEDS ORDERED: IOPAMIDOL 100 ML BOTTLE IV ONE ×2 (12:47→21:55)
--- NOTE | 2019-10-30 14:07 | Emergency Department Note ---
HPI General Chief complaint: Extremity Injury, Lower Stated complaint: toe pain Time Seen by Provider: 10/30/19 13:21 Source: patient Mode of arrival: ambulatory Limitations: no limitations History of Present Illness HPI Narrative: Narrative was sent here by Dr. Campos. She is to be admitted for a left fourth toe amputation. Patient was seen in his office at 9:00 this morning and has a dressing in place. Michael oliver reports that this current condition has exposed bone. Patient denies current fever weakness or chills.: Dr. Campos directed me to not take the dressing off. He told me to order a CBC and CMP and keep the patient here for admission. Patient reports she is comfortable and is in no distress. Informs that had told her to come here to be admitted to have surgery tomorrow. Denies fever weakness or chills. Denies other complications other than the stated condition. Related Data Home Medications Medication Instructions Recorded Confirmed ibuprofen 400 mg PO Q6H PRN 10/21/19 10/30/19 Previous Rx's Medication Instructions Recorded blood-glucose meter #100 each 11/19/17 lancets #100 each 12/17/17 blood sugar diagnostic #100 each 03/06/19 cephalexin [Keflex] 500 mg PO Q8H 10 Days #30 cap 10/26/19 gabapentin 100 mg PO TID #60 cap 10/26/19 glipizide 5 mg PO BIDAC #60 tab 10/26/19 metformin 1,000 mg PO BIDCC #60 tab 10/26/19 Allergies Allergy/AdvReac Type Severity Reaction Status Date / Time adhesive tape AdvReac Mild skin peels Verified 10/30/19 12:49 Review of Systems ROS ROS Narrative: Narrative: Constitutional: Denies fever and chills Cardiovascular: Denies chest pain and palpitations Respiratory: Denies shortness of breath and cough Gastrointestinal: Denies abdominal pain, nausea and vomiting Musculoskeletal: Reports as per HPI and other (Patient arrives with left foot dressed and in a device. She denies pain and states she is comfortable at the time.); Denies joint pain Integumentary: Reports as per HPI Neurological: Denies headache and weakness [facility] Narrative Patient History Narrative: Narrative: Medical/Surgical/Family History All Active Problems (Updated 11/01/19 @ 10:03 by BIA Solorzano) Acute hyperglycemia (Acute) Osteomyelitis (Acute) Diabetic foot (Acute) Influenza vaccine refused (Chronic) Diabetic foot ulcer associated with type 2 diabetes mellitus (Acute) Decubitus ulcer of both feet (Acute) Depression (Acute) Hyponatremia (Acute) Elevated ferritin (Chronic) Hypovitaminosis D (Chronic) Hyperlipidemia (Chronic) Essential hypertension (Chronic) Hx of amputation of lesser toe (Chronic) S/P skin biopsy (Chronic 10/02/12) Xerosis of skin (Chronic 11/27/13) Ulcer of lower extremity (Chronic 10/02/12) Neuritis (Chronic) Seborrheic keratosis (Chronic 11/27/13) Seborrheic dermatitis (Chronic 11/27/13) 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) Nuclear sclerosis (Chronic 04/26/14) Neck pain (Chronic) Lumbago (Chronic 10/02/12) Skin lesion (Chronic 11/05/13) Ingrown nail (Chronic) Genital herpes (Chronic) Fibromatosis (Chronic) Diabetes mellitus type 2 with neurological manifestations (Acute 11/18/13) Type 2 diabetes mellitus without complication (Chronic) Dermatofibroma (Chronic 11/27/13) Breast lump (Chronic 10/08/13) Back pain (Chronic) Skin abscess (Chronic) Medical History Back pain (Chronic) Breast lump (Chronic 10/08/13) Decubitus ulcer of both feet (Acute) Dermatofibroma (Chronic 11/27/13) Dr Alvarez Diabetes mellitus type 2 with neurological manifestations (Acute 11/18/13) Diabetic foot ulcer associated with type 2 diabetes mellitus (Acute) Fibromatosis (Chronic) Genital herpes (Chronic) Ingrown nail (Chronic) Lumbago (Chronic 10/02/12) Dr Capone Neck pain (Chronic) Neuritis (Chronic) Thoracic or Lumbosacral Neuritis or Radiculitis Nuclear sclerosis (Chronic 04/26/14) Dr Escobar 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) Seborrheic dermatitis (Chronic 11/27/13) Dr Alvarez Seborrheic keratosis (Chronic 11/27/13) Skin abscess (Chronic) Skin lesion (Chronic 11/05/13) Cellulite/fatty degenraio non the left thigh Type 2 diabetes mellitus without complication (Chronic) 1998 Ulcer of lower extremity (Chronic 10/02/12) Dr Capone Xerosis of skin (Chronic 11/27/13) Other specified diseases of sebaceous glands--Dr Alvarez Surgical History Hx of amputation of lesser toe (Chronic) 2014 S/P skin biopsy (Chronic 10/02/12) Family History Mother Family history of arthritis Uncle Family history of arthritis Alcohol abuse Grandmother Essential hypertension Maternal Leukemia Maternal Myocardial Infarction Maternal Diabetes mellitus Maternal Great Grandmother Social History Smoking Status: Never smoker Alcohol Intake Frequency: does not drink Substance Use: does not use Exam Narrative Narrative: Narrative: General Limitations: no limitations General appearance: alert and in no apparent distress Head Head: atraumatic and normocephalic Eye Eye: Present normal appearance, PERRL and EOMI; Absent scleral icterus and conjunctival injection Chest Chest: Present symmetric chest wall rise Respiratory Respiratory: Present normal lung sounds bilaterally; Absent respiratory distress, wheezes, stridor, accessory muscle use and prolonged expiratory phase Cardiovascular Cardiovascular: Present regular rate and normal rhythm; Absent systolic murmur and diastolic murmur Expanded Lower Extremity Hip/Pelvis: Present full ROM Upper leg: Present normal inspection and full ROM Knee: Present full ROM Lower leg: Present other (Left leg is as described. Patient has a dressing and device placed on her left foot. Will not remove per social insurance specialist's instructions.) Neurological Neurological: Present alert and oriented X3 Psychiatric Psychiatric: Present normal affect and normal mood Skin Skin: Present warm and dry Course Course Course Narrative: Patient will remain in the ED until she is admitted per social insurance specialist. pharmacy specialist informed me that he had talked to hospitalist and he will perform the admission. I discussed this with the warehouse administrative assistant and inform me that she was in communication with Dr. Herrera and social insurance specialist. Vital Signs Vital signs: Vital Signs Temperature 96.7 F L 10/30/19 12:46 Pulse Rate 86 10/30/19 12:46 Respiratory Rate 16 10/30/19 12:46 Blood Pressure 130/79 10/30/19 12:46 Pulse Oximetry (%) 97 10/30/19 12:46 Temperature 97.5 F 11/01/19 06:55 Pulse Rate 83 11/01/19 06:55 Respiratory Rate 18 11/01/19 06:55 Blood Pressure 122/77 11/01/19 06:55 Pulse Oximetry (%) 93 11/01/19 06:55 MDM MDM Narrative Medical decision making narrative: Narrative: Lab Data Result diagrams: 11/01/19 05:38 11/01/19 05:38 Labs: Lab Results 10/30/19 10/30/19 Range/Units 14:22 14:22 WBC 6.9 (4.50-11.00) K/mcL RBC 3.83 (3.59-5.38) M/mcL Hgb 10.4 L (11.2-15.7) g/dL Hct 30.4 L (34.1-44.9) % MCV 79.4 L (80.0-100.0) fL MCH 27.2 (26.0-34.0) pg MCHC 34.2 (31.0-36.0) g/dL RDW 12.3 (11.5-14.5) % Plt Count 386 (140-440) K/mcL MPV 10.3 (7.4-10.4) fL Gran % 73.4 (38.0-78.0) % Lymph % (Auto) 16.5 (15.5-49.0) % Ogle % (Auto) 6.7 (1.0-12.0) % Eos % (Auto) 3.1 (0.0-7.0) % Baso % (Auto) 0.3 (0.0-2.0) % Gran # 5.03 (1.80-8.00) K/mcL Lymph # (Auto) 1.13 L (1.50-4.80) K/mcL Ogle # (Auto) 0.46 (0.10-0.90) K/mcL Eos # (Auto) 0.21 (0.00-0.70) K/mcL Baso # (Auto) 0.02 (0.00-0.30) K/mcL Sodium 133 (133-145) mmol/L Potassium 4.9 (3.3-5.1) mmol/L Chloride 99 (96-108) mmol/L Carbon Dioxide 23 (22-30) mmol/L Anion Gap 11.0 (8-16) BUN 24 H (6-20) mg/dl Creatinine 0.9 (0.6-1.1) mg/dl GFR Calculation 74 Glucose 140 H (70-105) mg/dL Calcium 9.0 (8.6-10.4) mg/dl Total Bilirubin 0.6 (0.0-1.0) mg/dL AST 18 (0-37) U/l ALT 19 (0-40) U/l Alkaline Phosphatase 82 (39-117) U/L Total Protein 6.1 (5.9-8.4) gm/dL Albumin 3.2 (3.2-5.2) gm/dL Globulin 2.9 (2.2-3.7) gm/dL Albumin/Globulin Ratio 1.1 (1.0-2.3) Discharge Plan Patient/Caregiver Discharge Instructions Pt seen by ORTHOPHOTO TECH/DRAFTSMAN/PA only: No Clinical Impression: Osteomyelitis, Diabetic foot Patient Disposition: Xfer As Inpt ([facility]) Condition: Good Discharge Date/Time: 10/30/19 21:32
[2019-10-30 15:30] LABS: Basophils # (Auto) 0.02 K/mcL (0.00-0.30); Basophils % (Auto) 0.3 % (0.0-2.0); Eosinophils # (Auto) 0.21 K/mcL (0.00-0.70); Eosinophils % (Auto) 3.1 % (0.0-7.0); Granulocytes % (Auto) 73.4 % (38.0-78.0); Hematocrit 30.4 % (34.1-44.9); Hemoglobin 10.4 g/dL (11.2-15.7); Lymphocytes # (Auto) 1.13 K/mcL (1.50-4.80); Lymphocytes % (Auto) 16.5 % (15.5-49.0); Mean Cell Volume 79.4 fL (80.0-100.0); Mean Corpuscular HGB Conc 34.2 g/dL (31.0-36.0); Mean Platelet Volume 10.3 fL (7.4-10.4); Monocytes # (Auto) 0.46 K/mcL (0.10-0.90); Monocytes % (Auto) 6.7 % (1.0-12.0); Platelet Count 386 K/mcL (140-440); RBC 3.83 M/mcL (3.59-5.38); Red Cell Distribution Width 12.3 % (11.5-14.5); WBC 6.9 K/mcL (4.50-11.00)
[2019-10-30 15:47] LABS: ALT/SGPT 19 U/l (0-40); AST/SGOT 18 U/l (0-37); Albumin 3.2 gm/dL (3.2-5.2); Albumin/Globulin Ratio 1.1 (1.0-2.3); Alkaline Phosphatase 82 U/L (39-117); Bilirubin,Total 0.6 mg/dL (0.0-1.0); Carbon Dioxide 23 mmol/L (22-30); Chloride 99 mmol/L (96-108); Globulin 2.9 gm/dL (2.2-3.7); Glomerular Filtration Rate 74; Glucose 140 mg/dL (70-105)
[2019-10-30 15:57] LABS: Blood Urea Nitrogen 24 mg/dl (6-20)
--- NOTE | 2019-10-30 17:17 | Cat Scan Report ---
INDICATION: Left foot neuropathy TECHNIQUE: Axial images of the left foot. Sagittal and coronal reformatted images COMPARISON: Previous plain film examination dated 10/21/2019 FINDINGS: Soft tissue abnormality involving the left fourth digit. There is soft tissue irregularity and subcutaneous edema. There are gas bubbles. Penetrating injury or gas gangrene are possible. Clinical correlation is necessary. There may be subtle cortical destruction involving the lateral aspects of the fourth middle phalanx. Osteomyelitis is possible. No other focal osseous abnormalities. There is no fracture. No other areas of possible osteomyelitis. There is subcutaneous edema throughout the left foot. There is no focal abscess. Midfoot and hindfoot are negative. Distal tibia and fibula are negative. Tibiotalar joint is normal. Patient apparently has a history of neuropathy. No neuropathic or Charcot change identified IMPRESSION: 1. Soft tissue abnormality involving the left fourth digit. There are gas bubbles which may indicate penetrating injury or gas gangrene 2. Possible subtle cortical disruption in the left fourth middle phalanx. Osteomyelitis is possible Interpreted and Authenticated by: Sebastian Ramirez 10/30/19
--- NOTE | 2019-10-30 18:06 | XRay Report ---
INDICATION: L foot eval for prospective amputation. TECHNIQUE: AP and lateral left foot COMPARISON: CT scan dated 10/30/2019 FINDINGS: Diffuse soft tissue swelling in the left fourth digit. CT scan demonstrated soft tissue gas bubbles and possible osteomyelitis. Other digits are negative. Metatarsals are negative. IMPRESSION: Abnormality of the right fourth digit. Soft tissue gas bubbles and possible osteomyelitis demonstrated on CT scan Interpreted and Authenticated by: Sebastian Ramirez 10/30/19
[2019-10-30] MEDS ORDERED: 0.9 % SODIUM CHLORIDE 1,000 ML IV SCH ×2 (21:00→21:55)
[2019-10-30] MEDS ORDERED: ONDANSETRON 4 MG/2 ML VIAL IV PRN ×3 (21:04→21:55)
[2019-10-30] MEDS ORDERED: HYDROCHLOROTHIAZIDE 25 MG TABLET PO ONE (21:25)
[2019-10-30] MEDS ORDERED: VANCOMYCIN PER PHARMACY IV SCH (21:55)
[2019-10-30] MEDS ORDERED: ACETAMINOPHEN 650 MG/65 ML BOTTLE IV PRN (21:55)
[2019-10-30] MEDS ORDERED: POLYETHYLENE GLYCOL 3350 17 GM PACKET PO PRN (21:55)
[2019-10-30] MEDS ORDERED: MAGNESIUM SULFATE 2 GM/50 ML BAG IV PRN (21:55)
[2019-10-30] MEDS ORDERED: DEXTROSE 31 GM ORAL.SUSP PO PRN (21:55)
[2019-10-30] MEDS ORDERED: BISACODYL 10 MG SUPP.RECT PR PRN (21:55)
[2019-10-30] MEDS ORDERED: POTASSIUM CHLORIDE 20 MEQ PACKET PO PRN (21:55)
[2019-10-30] MEDS ORDERED: ONDANSETRON 4 MG ODT TABLET SL PRN (21:55)
[2019-10-30] MEDS ORDERED: DEXTROSE 50% 50 ML VIAL IV PRN (21:55)
[2019-10-30] MEDS: 0.9 % SODIUM CHLORIDE 1,000 ML IV SCH (22:39)
[2019-10-30] MEDS: PIPERACILLIN SODIUM/TAZOBACTAM 3.375 GM in DEXTROSE 5% IN WATER 50 ML IV SCH (22:39)
[2019-10-30] MEDS: 0.9 % SODIUM CHLORIDE 10 ML SYRINGE IV SCH (22:40)
[2019-10-31] MEDS: VANCOMYCIN 1,500 MG in 0.9 % SODIUM CHLORIDE 500 ML IV SCH ×3 (00:15→21:56)
[2019-10-31] MEDS: PIPERACILLIN SODIUM/TAZOBACTAM 3.375 GM in DEXTROSE 5% IN WATER 50 ML IV SCH ×4 (02:22→17:19)
[2019-10-31] MEDS: 0.9 % SODIUM CHLORIDE 10 ML SYRINGE IV SCH ×3 (05:55→22:07)
--- NOTE | 2019-10-31 06:05 | Ultrasound Report ---
INDICATION: peripheral neuropathy TECHNIQUE: Boone scale and color-flow duplex imaging COMPARISON: None. FINDINGS: Right common femoral artery, superficial femoral artery, popliteal artery are negative. There is no significant atherosclerotic plaque. Normal triphasic flow. Calf vessels are negative. No obstruction or stenosis. Normal three-vessel runoff IMPRESSION: Negative left lower extremity arterial duplex examination Interpreted and Authenticated by: Sebastian Ramirez 10/31/19
[2019-10-31 06:29] LABS: Appearance,Urine CLEAR; Bacteria,Urine 0 /hpf (0); Bilirubin,Urine NEG (NEG); Color,Urine STRAW; Culture Indicated,Urine NO; Glucose,Urine (UA) 50 mg/dL (NEG); Ketones,Urine NEG (NEG); Leukocyte Esterase,Urine NEG /uL (NEG); Mucus,Urine FEW /hpf (0); Nitrate,Urine NEG (NEG); Protein,Urine 100 mg/dL (NEG); Specific Gravity,Urine 1.017 (1.000-1.035); Urine Amorphous Crystals FEW /hpf (0); Urine Blood 0.03 mg/dL (<0.03); Urine RBC 1 /hpf (0-1); Urine Squamous Epithelial Cell 3 /hpf (0-4); Urine WBC < 1 /hpf (0-4); Urobilinogen,Urine NEG (NEG)
[2019-10-31 06:33] LABS: Hematocrit 30.2 % (34.1-44.9); Mean Cell Volume 81.2 fL (80.0-100.0); Mean Corpuscular HGB Conc 33.1 g/dL (31.0-36.0); Mean Platelet Volume 10.4 fL (7.4-10.4); Platelet Count 364 K/mcL (140-440); RBC 3.72 M/mcL (3.59-5.38); Red Cell Distribution Width 12.4 % (11.5-14.5); WBC 6.2 K/mcL (4.50-11.00)
[2019-10-31 07:14] LABS: ALT/SGPT 18 U/l (0-40); AST/SGOT 14 U/l (0-37); Albumin 2.8 gm/dL (3.2-5.2); Alkaline Phosphatase 75 U/L (39-117); Bilirubin,Direct < 0.2 mg/dL (0.0-0.3); Bilirubin,Total 0.6 mg/dL (0.0-1.0); Blood Urea Nitrogen 28 mg/dl (6-20); Calcium 8.6 mg/dl (8.6-10.4); Carbon Dioxide 21 mmol/L (22-30); Chloride 101 mmol/L (96-108); Globulin 2.9 gm/dL (2.2-3.7); Glomerular Filtration Rate 58; Glucose 218 mg/dL (70-105); Lactate Dehydrogenase 203 U/L (94-250); Phosphorous 4.4 mg/dL (2.7-4.5); Triglycerides 257 mg/dl (<150); Uric Acid 6.9 mg/dL (2.5-8.0)
[2019-10-31] MEDS: INSULIN LISPRO 1 UNIT/0.01 ML UNIT SQ SCH ×4 (07:27→21:56)
[2019-10-31 07:55] LABS: Eosinophils % (Manual) 3 % (0-7); Lymphocytes % 17 % (15-49); Monocytes % (Manual) 9 % (1-12); Platelet Estimate NORMAL (NORMAL); RBC Morphology NORMAL (NORMAL); Segmented Neutrophils % 71 % (38-78)
[2019-10-31] MEDS ORDERED: IPRATROPIUM/ALBUTEROL 3 ML AMPUL.NEB NEB PRN (08:00)
[2019-10-31] MEDS ORDERED: SCOPOLAMINE 1 PATCH PATCH TOPICAL PRN (08:00)
--- NOTE | 2019-10-31 08:11 | General Surgery Consult Note ---
HPI Consult Narrative Chief complaint: OPEN wound LEFT 4th toe with dry gangrene Reason for consult: Surgery for toe amputation History of present illness: Patient with h/o Sepsis, Uncontrolled diabetes and PAD. OPEN infected DFU Stage 4. FAILED out patient treatment. NEEDS toe amputation expeditiously to treat underlying cause. cc:: CC: Rodolfo Lemos Integumentary Integumentary: Present as per HPI, non-healing lesions, skin ulcer and other Additional comments: OPEN wound with exposed bone and PIPJ LEFT 4th toe. Dry gangrene with gas on imaging study. [facility] Medical History (Updated 10/21/19 @ 13:35 by Spike Rosario MD) Back pain (Chronic) Breast lump (Chronic 10/08/13) Decubitus ulcer of both feet (Acute) Dermatofibroma (Chronic 11/27/13) Dr Alvarez Diabetes mellitus type 2 with neurological manifestations (Acute 11/18/13) Diabetic foot ulcer associated with type 2 diabetes mellitus (Acute) Fibromatosis (Chronic) Genital herpes (Chronic) Ingrown nail (Chronic) Lumbago (Chronic 10/02/12) Dr Capone Neck pain (Chronic) Neuritis (Chronic) Thoracic or Lumbosacral Neuritis or Radiculitis Nuclear sclerosis (Chronic 04/26/14) Dr Escobar 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) Seborrheic dermatitis (Chronic 11/27/13) Dr Alvarez Seborrheic keratosis (Chronic 11/27/13) Skin abscess (Chronic) Skin lesion (Chronic 11/05/13) Cellulite/fatty degenraio non the left thigh Type 2 diabetes mellitus without complication (Chronic) 1998 Ulcer of lower extremity (Chronic 10/02/12) Dr Capone Xerosis of skin (Chronic 11/27/13) Other specified diseases of sebaceous glands--Dr Alvarez Surgical History Hx of amputation of lesser toe (Chronic) 2014 S/P skin biopsy (Chronic 10/02/12) Family History Mother Family history of arthritis Uncle Family history of arthritis Alcohol abuse Grandmother Essential hypertension Maternal Leukemia Maternal Myocardial Infarction Maternal Diabetes mellitus Maternal Great Grandmother Social History (Updated 04/07/19 @ 09:34 by Thierry Reyes MD, [facility]) marital status: legally smoking status: Never smoker alcohol intake frequency: does not drink substance use type: does not use MEDS/ALLERGIES Home Medications and Allergies Home Medications Medication Instructions Recorded Confirmed Type blood-glucose meter #100 each 11/19/17 10/30/19 Rx lancets #100 each 12/17/17 10/30/19 Rx blood sugar diagnostic #100 each 03/06/19 10/30/19 Rx ibuprofen 400 mg PO Q6H PRN 10/21/19 10/30/19 History cephalexin [Keflex] 500 mg PO Q8H 10 Days #30 cap 10/26/19 10/30/19 Rx gabapentin 100 mg PO TID #60 cap 10/26/19 10/30/19 Rx glipizide 5 mg PO BIDAC #60 tab 10/26/19 10/30/19 Rx metformin 1,000 mg PO BIDCC #60 tab 10/26/19 10/30/19 Rx Allergies Allergy/AdvReac Type Severity Reaction Status Date / Time adhesive tape AdvReac Mild skin peels Verified 10/30/19 12:49 Physical Examination Vital Signs Vital signs: Temp Pulse Resp BP Pulse Ox 97.3 F 85 14 113/72 94 10/31/19 07:52 10/31/19 07:52 10/31/19 07:52 10/31/19 07:52 10/31/19 07:52 General physical appearance General physical exam: well developed, well nourished, no distress and no pain Eyes Eye exam: PERRL and normal ocular movement ENT ENT exam: normal pinna, normal nares, normal mucosa and no congestion Head Head exam IM: Present atraumatic and normal inspection Neck Neck exam: no masses, trachea midline and no venous distension Cardiovascular Cardiovascular exam IM: Present normal rate and rhythm Respiratory Respiratory exam: normal respiratory effort and clear to auscultation Results Labs Result diagrams: 10/31/19 04:52 10/31/19 04:52 Labs: Abnormal lab results 10/30/19 10/30/19 10/31/19 Range/Units 14:22 14:22 04:52 Hgb 10.4 L 10.0 L (11.2-15.7) g/dL Hct 30.4 L 30.2 L (34.1-44.9) % MCV 79.4 L (80.0-100.0) fL Lymph # (Auto) 1.13 L (1.50-4.80) K/mcL Carbon Dioxide (22-30) mmol/L BUN 24 H (6-20) mg/dl Glucose 140 H (70-105) mg/dL GGT (5-36) U/L Total Protein (5.9-8.4) gm/dL Albumin (3.2-5.2) gm/dL Triglycerides (<150) mg/dl Urine Protein (NEG) mg/dL Urine Glucose (UA) (NEG) mg/dL Urine Occult Blood (<0.03) mg/dL Amorphous Crystals (0) /hpf 10/31/19 10/31/19 Range/Units 04:52 05:51 Hgb (11.2-15.7) g/dL Hct (34.1-44.9) % MCV (80.0-100.0) fL Lymph # (Auto) (1.50-4.80) K/mcL Carbon Dioxide 21 L (22-30) mmol/L BUN 28 H (6-20) mg/dl Glucose 218 H (70-105) mg/dL GGT 48 H (5-36) U/L Total Protein 5.7 L (5.9-8.4) gm/dL Albumin 2.8 L (3.2-5.2) gm/dL Triglycerides 257 H (<150) mg/dl Urine Protein 100 A (NEG) mg/dL Urine Glucose (UA) 50 A (NEG) mg/dL Urine Occult Blood 0.03 A (<0.03) mg/dL Amorphous Crystals Few A (0) /hpf Diabetes panel 10/30/19 10/31/19 Range/Units 14:22 04:52 Sodium 133 135 (133-145) mmol/L Potassium 4.9 4.3 (3.3-5.1) mmol/L Chloride 99 101 (96-108) mmol/L Carbon Dioxide 23 21 L (22-30) mmol/L BUN 24 H 28 H (6-20) mg/dl Creatinine 0.9 1.1 (0.6-1.1) mg/dl Glucose 140 H 218 H (70-105) mg/dL Calcium 9.0 8.6 (8.6-10.4) mg/dl AST 18 14 (0-37) U/l ALT 19 18 (0-40) U/l Alkaline Phosphatase 82 75 (39-117) U/L Total Protein 6.1 5.7 L (5.9-8.4) gm/dL Albumin 3.2 2.8 L (3.2-5.2) gm/dL Triglycerides 257 H (<150) mg/dl Calcium panel 10/30/19 10/31/19 Range/Units 14:22 04:52 Calcium 9.0 8.6 (8.6-10.4) mg/dl Phosphorus 4.4 (2.7-4.5) mg/dL Albumin 3.2 2.8 L (3.2-5.2) gm/dL Pituitary panel 10/30/19 10/31/19 Range/Units 14:22 04:52 Sodium 133 135 (133-145) mmol/L Potassium 4.9 4.3 (3.3-5.1) mmol/L Chloride 99 101 (96-108) mmol/L Carbon Dioxide 23 21 L (22-30) mmol/L BUN 24 H 28 H (6-20) mg/dl Creatinine 0.9 1.1 (0.6-1.1) mg/dl Glucose 140 H 218 H (70-105) mg/dL Calcium 9.0 8.6 (8.6-10.4) mg/dl Adrenal panel 10/30/19 10/31/19 Range/Units 14:22 04:52 Sodium 133 135 (133-145) mmol/L Potassium 4.9 4.3 (3.3-5.1) mmol/L Chloride 99 101 (96-108) mmol/L Carbon Dioxide 23 21 L (22-30) mmol/L BUN 24 H 28 H (6-20) mg/dl Creatinine 0.9 1.1 (0.6-1.1) mg/dl Glucose 140 H 218 H (70-105) mg/dL Calcium 9.0 8.6 (8.6-10.4) mg/dl Total Bilirubin 0.6 0.6 (0.0-1.0) mg/dL AST 18 14 (0-37) U/l ALT 19 18 (0-40) U/l Alkaline Phosphatase 82 75 (39-117) U/L Total Protein 6.1 5.7 L (5.9-8.4) gm/dL Albumin 3.2 2.8 L (3.2-5.2) gm/dL All other labs normal. A/P Narrative A/P Narrative: Assessment: CSSSI LEFT 4th toe Uncontrolled diabetes, PAD, DFU Stage 4, Gas gangrene confined to open wound with exposed bone. Plan: LEFT 4th toe amputation. Spoke with patient at length about the planned surgery and possible post surgery scenarios. MAY leave the wound open and consider wound VAC at a later date. She will need to off load the foot with Darco shoe and a roll about scooter. Physical / ?? Occupational Therapy and Diabetes teaching teaching later. I had a long discussion with Dr. Keri BAILON, Physician Reviewer in [place], [place]. Per my understanding, patient has insurance and IS eligible for treatment and post op care, Plan reviewed with hospitalist physician Dr. Lemos and Ann Marie RN I/C and Sandy SHARP caring for this lady. Time Spent With Patient Time: Total time spent is greater than 50% in coordination of care (as documented) at patient's floor/unit and/or counseling patient: Total time spent with greater than 50% in coordination of care (as documented) at patient's floor/unit and/or counseling patient:: 25 - 35 minutes
--- NOTE | 2019-10-31 08:38 | Internal Med Progress Note ---
SUBJECTIVE Subjective Patient information: Note initiated : 10/31/19 at 8:34 am Service Date, if different from initiated Date: [] Patient: Deisy Rutledge 53 y/o F admitted on 10/30/19 for Toe Pain. History of present illness: Ms. Rutledge is a 53 year old F with a history of controlled DM type II/diabetic neuropathy and diabetic foot ulcers with previous Rt 4th toe amputation who was admitted on 10/20 with infected left fourth toe ulcer. She was treated aggressively on antibiotics/wound care and debridements and was discharged home after 6 days of treatment on oral Keflex for beta streptococci on wound cultures. She was advised to continue aggressive blood sugar control as outpatient along with follow-up with wound care clinic She was today seen at wound care clinic and was sent to the ER by Dr. Campos after noticing gangrenous changes of the left fourth toe with exposed bone and need for further evaluation. Initial work-up in the ER with contrast CT consistent with gas gangrene/osteomyelitis involving left fourth toe. Patient was started antibiotics and subsequently hospitalist service was consulted for admission while patient will undergo toe amputation. At the time of evaluation patient is anxious. She is able to write history. She has been on Keflex but did not think the wound was any worse. She denies associated fever, shaking chills. 10/30-patient doing well. White count 6.2. Patient anxious however currently n.p.o. Will undergo toe amputation today by Dr. Campos. Left foot arterial duplex shows negative left lower extremity duplex exam. Will review postop. Continue CCD. Constitutional Vitals: Vital Signs Temp Pulse Resp BP Pulse Ox 97.3 F 85 14 113/72 94 10/31/19 07:52 10/31/19 07:52 10/31/19 07:52 10/31/19 07:52 10/31/19 07:52 Period Temp Pulse Resp BP Sys/Cain Pulse Ox Last 24 Hr 96.7 F-98.6 F 85-96 14-16 113-158/67-83 93-99 Intake and Output 10/30/19 10/31/19 10/31/19 21:59 05:59 13:59 Intake Total 790 Output Total 1450 Balance -660 Weight 101.605 kg Alert oriented Anxious Nonlabored breathing Left foot second toe gangrenous changes Intake & Output: Intake & Output 10/30/19 10/31/19 10/31/19 21:59 05:59 13:59 Intake Total 790 Output Total 1450 Balance -660 Weight 101.605 kg Intake: IV 550 Zosyn 3.375 gm In Dextrose 5% 50 in Water 50 ml @ 100 mls/hr IV Q6H [facility] Rx#:[id number] Vancomycin 1,500 mg In Sodium 500 Chloride 0.9% 500 ml @ 333.3 mls/hr IV Q12H [facility] Rx#: [id number] Oral 240 Output: Void Amount 1450 Other: Urine Appearance Clear Urine Color Bright Yellow Stool Color Brown Stool Consistency Soft # Bowel Movements 1 OBJ DATA Labs CBC & Chem 7: 10/31/19 04:52 10/31/19 04:52 Labs: Abnormal Lab Results 10/31/19 10/31/19 10/31/19 05:51 04:52 04:52 Hgb 10.0 L Hct 30.2 L MCV Lymph # (Auto) Carbon Dioxide 21 L BUN 28 H Glucose 218 H GGT 48 H Total Protein 5.7 L Albumin 2.8 L Triglycerides 257 H Urine Protein 100 A Urine Glucose (UA) 50 A Urine Occult Blood 0.03 A Amorphous Crystals Few A 10/30/19 10/30/19 14:22 14:22 Hgb 10.4 L Hct 30.4 L MCV 79.4 L Lymph # (Auto) 1.13 L Carbon Dioxide BUN 24 H Glucose 140 H GGT Total Protein Albumin Triglycerides Urine Protein Urine Glucose (UA) Urine Occult Blood Amorphous Crystals Meds: Medications Acetaminophen (Tylenol) 650 mg PO Q4-6HP PRN; Protocol PRN Reason: Per Pain Protocol/Fever > 101 Albuterol/Ipratropium (Duoneb) 3 ml NEB ONCE PRN PRN Reason: Shortness Of Breath Stop: 10/31/19 13:00 Bisacodyl (Dulcolax) 10 mg [place] Q2-3DAYS PRN PRN Reason: Constipation Dextrose (Dextrose 50%) 0 ml IV UD PRN PRN Reason: Hypoglycemia Diagnostic Test (Pha) (Accu-Chek) 1 each FS ACHS [facility] Last Admin: 10/31/19 07:27 Dose: 1 each Documented by: Docusate Sodium (Colace) 100 mg PO BID [facility] Glucose (Insta-Glucose) 15 gm PO PRN PRN PRN Reason: Hypoglycemia Heparin Sodium (Porcine) (Heparin) 5,000 unit SQ Q12 [facility] Sodium Chloride (Sodium Chloride 0.9%) 1,000 mls @ 50 mls/hr IV .Q20H [facility] Stop: 11/02/19 09:54 Last Admin: 10/30/19 22:39 Dose: 50 mls/hr Documented by: Acetaminophen (Ofirmev) 650 mg in 65 mls @ 130 mls/hr IV Q6HP PRN; Protocol PRN Reason: Per Pain Protocol/Fever > 101 Magnesium Sulfate (Magnesium Sulfate) 2 gm in 50 mls @ 50 mls/hr IV UD PRN PRN Reason: MG = or < 1.7 Piperacillin Sod/Tazobactam (Sod 3.375 gm/ Dextrose) 50 mls @ 100 mls/hr IV Q6H [facility]; Protocol Last Admin: 10/31/19 05:34 Dose: 100 mls/hr Documented by: Vancomycin HCl 1,500 mg/ (Sodium Chloride) 500 mls @ 333.3 mls/hr IV Q12H [facility] Last Infusion: 10/31/19 01:50 Dose: Infused Documented by: Insulin Human Lispro (Humalog) 0 unit SQ ACHS [facility]; Protocol Last Admin: 10/31/19 07:27 Dose: Not Given Documented by: Iron Carb/Multivit/[place]/Folic Acid (Multivitamin W/Minerals) 1 tab PO DAILY [facility] Melatonin (Melatonin 3mg Tablet) 3 mg PO HSP PRN PRN Reason: Insomnia Ondansetron HCl (Zofran Odt) 4 mg SL Q4-6HP PRN; Protocol PRN Reason: Nausea And Vomiting Ondansetron HCl (Zofran) 4 mg IV Q4-6HP PRN; Protocol PRN Reason: Nausea And Vomiting Polyethylene Glycol (Miralax) 17 gm PO DAILYP PRN PRN Reason: Constipation Potassium Chloride (Klor-Con) 40 meq PO DAILYP PRN PRN Reason: K+ < 3.5 Scopolamine (Transderm-Scop) 1 patch TOPICAL PREOP PRN PRN Reason: Nausea And Vomiting Stop: 10/31/19 13:00 Senna/Docusate Sodium (Senna Plus Tablet) 1 tab PO HS [facility] Sitagliptin Phosphate (Januvia) 100 mg PO DAILY [facility] Sodium Chloride (Saline Flush) 10 ml IV Q8 [facility] Last Admin: 10/31/19 05:55 Dose: Not Given Documented by: Vancomycin HCl (Vancomycin Per Pharmacy) 1 order IV UD [facility]; Protocol A/P Narrative A/P Narrative: * 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 Scheduled for amputation today. Currently n.p.o. continue antibiotic coverage. De-escalate based on operative cultures. Arterial Dopplers negative for stenosis * Poorly controlled diabetes. Continue basal prandial insulin, restart CC diet postoperatively * Diabetic neuropathy-continue gabapentin * Obesity with a BMI over 35. Continue directed therapy/dietary intervention * Full code * Prophylax Heparin Plan * Review postop * De-escalate antibiotics based on operative cultures * Diabetes management/diabetic education/basal panel insulin/CC diet * Discharge planning per case management Time Spent With Patient Time: Total time spent is greater than 50% in coordination of care (as documented) at patient's floor/unit and/or counseling patient: Total time spent with greater than 50% in coordination of care (as documented) at patient's floor/unit and/or counseling patient:: Greater than 35 minutes QUALITY VTE Deep Vein Thrombosis/Pulmonary Embolism Present on Admission: No
[2019-10-31] MEDS ORDERED: PROPOFOL 500 MG/50 ML BOTTLE IV ONE (09:00)
[2019-10-31] MEDS: DOCUSATE SODIUM 100 MG CAPSULE PO SCH ×2 (09:20→21:25)
[2019-10-31] MEDS: MULTIVIT,THER IRON,CA,FA & MIN 1 TABLET PO SCH (09:20)
[2019-10-31] MEDS: HEPARIN 5,000 UNIT/ML VIAL SQ SCH ×2 (09:20→21:57)
--- NOTE | 2019-10-31 09:46 | Brief Operative Note ---
Brief Operative Note Date of procedure: 10/31/19 Pre-op diagnosis: Open wound ? Dry gangrene Left 4th toe PIPJ Procedure: Amputation Left 4th toe through MP Joint with open packing, Grafts/Implants: No Anesthesia: conscious sedation Findings: Peripheral neuropathy, Open wound Stage 4 DFU LEFT 4th toe PIPJ Complications: none Surgeon: Mike Campos Estimated blood loss (cc): 20 Specimens Removed/Pathology: other Condition: stable Disposition: PACU
[2019-10-31] MEDS: sitaGLIPtin 100 MG TABLET PO SCH (10:23)
[2019-10-31] MEDS: INSULIN GLARGINE, HUMAN 1 UNIT/0.01 ML SQ SCH ×2 (10:23→21:56)
[2019-10-31] MEDS: 0.9 % SODIUM CHLORIDE 1,000 ML IV SCH ×2 (11:47→17:42)
--- NOTE | 2019-10-31 13:36 | Internal Med Progress Note ---
SUBJECTIVE Subjective Patient information: Note initiated : 10/31/19 at 1:32 pm Service Date, if different from initiated Date: [] Patient: Deisy Rutledge 53 y/o F admitted on 10/30/19 for Toe Pain. Chief Complaint: [] Interval history: History of present illness: Ms. Rutledge is a 53 year old F with a history of controlled DM type II/diabetic neuropathy and diabetic foot ulcers with previous Rt 4th toe amputation who was admitted on 10/20 with infected left fourth toe ulcer. She was treated aggressively on antibiotics/wound care and debridements and was discharged home after 6 days of treatment on oral Keflex for beta streptococci on wound cultures. She was advised to continue aggressive blood sugar control as outpatient along with follow-up with wound care clinic She was today seen at wound care clinic and was sent to the ER by Dr. Campos after noticing gangrenous changes of the left fourth toe with exposed bone and need for further evaluation. Initial work-up in the ER with contrast CT consistent with gas gangrene/osteomyelitis involving left fourth toe. Patient was started antibiotics and subsequently hospitalist service was consulted for admission while patient will undergo toe amputation. At the time of evaluation patient is anxious. She is able to write history. She has been on Keflex but did not think the wound was any worse. She denies associated fever, shaking chills. 10/30-patient doing well. White count 6.2. Patient anxious however currently n.p.o. Will undergo toe amputation today by Dr. Campos. Left foot arterial duplex shows negative left lower extremity duplex exam. Will review postop. Continue CCD. 10/31 Constitutional Vitals: Vital Signs Temp Pulse Resp BP Pulse Ox 97.3 F 85 14 113/72 98 10/31/19 07:52 10/31/19 07:52 10/31/19 07:52 10/31/19 07:52 10/31/19 10:00 Period Temp Pulse Resp BP Sys/Cain Pulse Ox Last 24 Hr 96.7 F-98.6 F 85-96 14-16 113-158/67-83 93-99 Intake and Output 10/30/19 10/31/19 10/31/19 21:59 05:59 13:59 Intake Total 790 707 Output Total 1450 425 Balance -660 282 Weight 101.605 kg 101.605 kg Patient Weight 11/01/19 05:59 Weight 101.605 kg Intake & Output: Intake & Output 10/30/19 10/31/19 10/31/19 21:59 05:59 13:59 Intake Total 790 707 Output Total 1450 425 Balance -660 282 Weight 101.605 kg 101.605 kg Intake: IV 550 707 Sodium Chloride 0.9% 1,000 ml @ 657 50 mls/hr IV .Q20H [facility] Rx#: [id number] Zosyn 3.375 gm In Dextrose 5% 50 50 in Water 50 ml @ 100 mls/hr IV Q6H [facility] Rx#:[id number] Vancomycin 1,500 mg In Sodium 500 Chloride 0.9% 500 ml @ 333.3 mls/hr IV Q12H [facility] Rx#: [id number] Oral 240 Output: Void Amount 1450 425 Other: Urine Appearance Clear Clear Urine Color Bright Yellow Bright Yellow Urine Odor Normal Stool Color Brown Stool Consistency Soft # Bowel Movements 1 Exam: General: Alert, Awake, No acute Distress Eyes/N/T: EOMI, Head/Neck: neck supple, CV: RRR, No murmurs, Pulm: Clear b/l, no wheezing/rhonchi/rales Abd: soft, nontender, +BS x4 Ext: no clubbing/cyanosis/edema. Left foot second toe gangrenous changes Neuro: Alert, no focal deficits, moves all extremities, Skin: warm/dry OBJ DATA Labs CBC & Chem 7: 10/31/19 04:52 10/31/19 04:52 Labs: Abnormal Lab Results 10/31/19 10/31/19 10/31/19 05:51 04:52 04:52 Hgb 10.0 L Hct 30.2 L MCV Lymph # (Auto) Carbon Dioxide 21 L BUN 28 H Glucose 218 H GGT 48 H Total Protein 5.7 L Albumin 2.8 L Triglycerides 257 H Urine Protein 100 A Urine Glucose (UA) 50 A Urine Occult Blood 0.03 A Amorphous Crystals Few A 10/30/19 10/30/19 14:22 14:22 Hgb 10.4 L Hct 30.4 L MCV 79.4 L Lymph # (Auto) 1.13 L Carbon Dioxide BUN 24 H Glucose 140 H GGT Total Protein Albumin Triglycerides Urine Protein Urine Glucose (UA) Urine Occult Blood Amorphous Crystals Meds: Medications Acetaminophen (Tylenol) 650 mg PO Q4-6HP PRN; Protocol PRN Reason: Per Pain Protocol/Fever > 101 Bisacodyl (Dulcolax) 10 mg GA Q2-3DAYS PRN PRN Reason: Constipation Dextrose (Dextrose 50%) 0 ml IV UD PRN PRN Reason: Hypoglycemia Diagnostic Test (Pha) (Accu-Chek) 1 each FS ACHS [facility] Last Admin: 10/31/19 11:45 Dose: 1 each Documented by: Docusate Sodium (Colace) 100 mg PO BID [facility] Last Admin: 10/31/19 09:20 Dose: Not Given Documented by: Glucose (Insta-Glucose) 15 gm PO PRN PRN PRN Reason: Hypoglycemia Heparin Sodium (Porcine) (Heparin) 5,000 unit SQ Q12 [facility] Last Admin: 10/31/19 09:20 Dose: Not Given Documented by: Sodium Chloride (Sodium Chloride 0.9%) 1,000 mls @ 50 mls/hr IV .Q20H [facility] Stop: 11/02/19 09:54 Last Admin: 10/31/19 11:47 Dose: 50 mls/hr Documented by: Acetaminophen (Ofirmev) 650 mg in 65 mls @ 130 mls/hr IV Q6HP PRN; Protocol PRN Reason: Per Pain Protocol/Fever > 101 Magnesium Sulfate (Magnesium Sulfate) 2 gm in 50 mls @ 50 mls/hr IV UD PRN PRN Reason: MG = or < 1.7 Piperacillin Sod/Tazobactam (Sod 3.375 gm/ Dextrose) 50 mls @ 100 mls/hr IV Q6H [facility]; Protocol Last Admin: 10/31/19 11:46 Dose: 100 mls/hr Documented by: Vancomycin HCl 1,500 mg/ (Sodium Chloride) 500 mls @ 333.3 mls/hr IV Q12H [facility] Last Admin: 10/31/19 09:38 Dose: 333 mls/hr Documented by: Insulin Glargine (Lantus) 10 unit SQ BID [facility] Last Admin: 10/31/19 10:23 Dose: 10 units Documented by: Insulin Human Lispro (Humalog) 0 unit SQ ACHS [facility]; Protocol Last Admin: 10/31/19 11:46 Dose: 3 units Documented by: Iron Carb/Multivit/[employer]el [employer]/Folic Acid (Multivitamin W/Minerals) 1 tab PO DAILY [facility] Last Admin: 10/31/19 09:20 Dose: Not Given Documented by: Melatonin (Melatonin 3mg Tablet) 3 mg PO HSP PRN PRN Reason: Insomnia Ondansetron HCl (Zofran Odt) 4 mg SL Q4-6HP PRN; Protocol PRN Reason: Nausea And Vomiting Ondansetron HCl (Zofran) 4 mg IV Q4-6HP PRN; Protocol PRN Reason: Nausea And Vomiting Polyethylene Glycol (Miralax) 17 gm PO DAILYP PRN PRN Reason: Constipation Potassium Chloride (Klor-Con) 40 meq PO DAILYP PRN PRN Reason: K+ < 3.5 Senna/Docusate Sodium (Senna Plus Tablet) 1 tab PO [facility] Sitagliptin Phosphate (Januvia) 100 mg PO DAILY [facility] Last Admin: 10/31/19 10:23 Dose: 100 mg Documented by: Sodium Chloride (Saline Flush) 10 ml IV Q8 [facility] Last Admin: 10/31/19 13:28 Dose: Not Given Documented by: Vancomycin HCl (Vancomycin Per Pharmacy) 1 order IV UD [facility]; Protocol A/P Narrative A/P Narrative: A: *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 Campos -Arterial Dopplers negative for stenosis *Poorly controlled diabetes: *Diabetic neuropathy: continue gabapentin *Obesity with a BMI over 35: Continue directed therapy/dietary intervention Plan: -Dr. Campos following -Wound care -De-escalate antibiotics based on operative cultures -Diabetes management/diabetic education/basal panel insulin/CC diet - for Discharge planning -ppx: heparin full code Time Spent With Patient Time: Total time spent is greater than 50% in coordination of care (as documented) at patient's floor/unit and/or counseling patient: QUALITY VTE Deep Vein Thrombosis/Pulmonary Embolism Present on Admission: No
[2019-10-31] MEDS: SENNOSIDES/DOCUSATE SODIUM 1 TAB TABLET PO SCH (21:24)
[2019-10-31] MEDS: GABAPENTIN 100 MG CAPSULE PO SCH (21:58)
[2019-10-31] MEDS: MELATONIN 3 MG TABLET PO PRN (23:27)
[2019-11-01] MEDS: PIPERACILLIN SODIUM/TAZOBACTAM 3.375 GM in DEXTROSE 5% IN WATER 50 ML IV SCH ×5 (00:01→23:18)
[2019-11-01] MEDS: 0.9 % SODIUM CHLORIDE 10 ML SYRINGE IV SCH ×3 (06:02→21:25)
[2019-11-01 06:32] LABS: Hematocrit 28.9 % (34.1-44.9); Hemoglobin 9.8 g/dL (11.2-15.7); Mean Cell Volume 80.1 fL (80.0-100.0); Mean Corpuscular HGB Conc 33.9 g/dL (31.0-36.0); Mean Platelet Volume 10.3 fL (7.4-10.4); Platelet Count 349 K/mcL (140-440); RBC 3.61 M/mcL (3.59-5.38); Red Cell Distribution Width 12.5 % (11.5-14.5); WBC 6.1 K/mcL (4.50-11.00)
[2019-11-01 07:13] LABS: ALT/SGPT 15 U/l (0-40); AST/SGOT 12 U/l (0-37); Albumin 2.8 gm/dL (3.2-5.2); Alkaline Phosphatase 74 U/L (39-117); Bilirubin,Direct < 0.2 mg/dL (0.0-0.3); Bilirubin,Total 0.5 mg/dL (0.0-1.0); Calcium 8.2 mg/dl (8.6-10.4); Carbon Dioxide 23 mmol/L (22-30); Chloride 105 mmol/L (96-108); Globulin 2.7 gm/dL (2.2-3.7); Glomerular Filtration Rate 58; Glucose 174 mg/dL (70-105); Lactate Dehydrogenase 173 U/L (94-250); Phosphorous 3.9 mg/dL (2.7-4.5); Triglycerides 247 mg/dl (<150); Uric Acid 4.9 mg/dL (2.5-8.0)
[2019-11-01 07:19] LABS: Blood Urea Nitrogen 22 mg/dl (6-20)
[2019-11-01 07:48] LABS: Band Neutrophils % 2 % (0-10); Eosinophils % (Manual) 4 % (0-7); Lymphocytes % 16 % (15-49); Monocytes % (Manual) 9 % (1-12); Platelet Estimate NORMAL (NORMAL); RBC Morphology NORMAL (NORMAL); Segmented Neutrophils % 69 % (38-78)
[2019-11-01] MEDS: INSULIN LISPRO 1 UNIT/0.01 ML UNIT SQ SCH ×4 (07:59→21:20)
--- NOTE | 2019-11-01 08:29 | Internal Med Progress Note ---
SUBJECTIVE Subjective Patient information: Note initiated : 11/01/19 at 8:25 am Service Date, if different from initiated Date: [] Patient: Deisy Rutledge 53 y/o F admitted on 10/30/19 for Toe Pain. Chief Complaint: [] Interval history: History of present illness: Ms. Rutledge is a 53 year old F with a history of controlled DM type II/diabetic neuropathy and diabetic foot ulcers with previous Rt 4th toe amputation who was admitted on 10/20 with infected left fourth toe ulcer. She was treated aggressively on antibiotics/wound care and debridements and was discharged home after 6 days of treatment on oral Keflex for beta streptococci on wound cultures. She was advised to continue aggressive blood sugar control as outpatient along with follow-up with wound care clinic She was today seen at wound care clinic and was sent to the ER by Dr. Campos after noticing gangrenous changes of the left fourth toe with exposed bone and need for further evaluation. Initial work-up in the ER with contrast CT consistent with gas gangrene/osteomyelitis involving left fourth toe. Patient was started antibiotics and subsequently hospitalist service was consulted for admission while patient will undergo toe amputation. At the time of evaluation patient is anxious. She is able to write history. She has been on Keflex but did not think the wound was any worse. She denies associated fever, shaking chills. 10/30-patient doing well. White count 6.2. Patient anxious however currently n.p.o. Will undergo toe amputation today by Dr. Campos. Left foot arterial duplex shows negative left lower extremity duplex exam. Will review postop. Continue CCD. 10/31 Amputation left fourth toe through MP joints yesterday by Dr. Campos. Poor s leep but otherwise no new complaints. No events overnight. Review of Systems: denies headache/fever/chills/nausea/vomiting/chest or abdominal pain/cough/dyspnea/diarrhea. Otherwise see above. Constitutional Vitals: Vital Signs Temp Pulse Resp BP Pulse Ox 97.5 F 83 18 122/77 93 11/01/19 06:55 11/01/19 06:55 11/01/19 06:55 11/01/19 06:55 11/01/19 06:55 Period Temp Pulse Resp BP Sys/Cain Pulse Ox Last 24 Hr 97.2 F-98.4 F 77-90 16-20 106-136/68-83 87-98 Intake and Output 10/31/19 11/01/19 11/01/19 21:59 05:59 13:59 Intake Total 1730 915 Output Total 1050 850 Balance 680 65 Weight 101.605 kg Intake & Output: Intake & Output 10/31/19 11/01/19 11/01/19 21:59 05:59 13:59 Intake Total 1730 915 Output Total 1050 850 Balance 680 65 Weight 101.605 kg Intake: IV 50 615 Zosyn 3.375 gm In Dextrose 5% 50 50 in Water 50 ml @ 100 mls/hr IV Q6H [facility] Rx#:[id number] Vancomycin 1,500 mg In Sodium 500 Chloride 0.9% 500 ml @ 333.3 mls/hr IV Q12H [facility] Rx#: [id number] Oral 1680 300 Output: Void Amount 1050 850 Other: Urine Appearance Clear Clear Urine Color Bright Yellow Bright Yellow Urine Odor Normal Stool Size Moderate Small Stool Color Brown Brown Green Stool Consistency Soft Normal for Patient Loose # Bowel Movements 1 1 Exam: General: Alert, Awake, No acute Distress Eyes/N/T: EOMI, Head/Neck: neck supple, CV: RRR, No murmurs, Pulm: mild bibasilar rales, no wheezing/rhonchi/rales Abd: soft, nontender, +BS x4 Ext: no clubbing/cyanosis/edema. Left foot in dressings Neuro: Alert, no focal deficits, moves all extremities, Skin: warm/dry OBJ DATA Labs CBC & Chem 7: 11/01/19 05:38 11/01/19 05:38 Labs: Abnormal Lab Results 11/01/19 11/01/19 10/31/19 05:38 05:38 05:51 Hgb 9.8 L Hct 28.9 L MCV Lymph # (Auto) Carbon Dioxide Anion Gap 7.0 L BUN 22 H Glucose 174 H Calcium 8.2 L GGT Total Protein 5.5 L Albumin 2.8 L Triglycerides 247 H Urine Protein 100 A Urine Glucose (UA) 50 A Urine Occult Blood 0.03 A Amorphous Crystals Few A 10/31/19 10/31/19 10/30/19 04:52 04:52 14:22 Hgb 10.0 L Hct 30.2 L MCV Lymph # (Auto) Carbon Dioxide 21 L Anion Gap BUN 28 H 24 H Glucose 218 H 140 H Calcium GGT 48 H Total Protein 5.7 L Albumin 2.8 L Triglycerides 257 H Urine Protein Urine Glucose (UA) Urine Occult Blood Amorphous Crystals 10/30/19 14:22 Hgb 10.4 L Hct 30.4 L MCV 79.4 L Lymph # (Auto) 1.13 L Carbon Dioxide Anion Gap BUN Glucose Calcium GGT Total Protein Albumin Triglycerides Urine Protein Urine Glucose (UA) Urine Occult Blood Amorphous Crystals Meds: Medications Acetaminophen (Tylenol) 650 mg PO Q4-6HP PRN; Protocol PRN Reason: Per Pain Protocol/Fever > 101 Bisacodyl (Dulcolax) 10 mg ID Q2-3DAYS PRN PRN Reason: Constipation Dextrose (Dextrose 50%) 0 ml IV UD PRN PRN Reason: Hypoglycemia Diagnostic Test (Pha) (Accu-Chek) 1 each FS ACHS [facility] Last Admin: 11/01/19 07:59 Dose: 1 each Documented by: Docusate Sodium (Colace) 100 mg PO BID [facility] Last Admin: 10/31/19 21:25 Dose: Not Given Documented by: Gabapentin (Neurontin) 100 mg PO TID [facility] Last Admin: 10/31/19 21:58 Dose: 100 mg Documented by: Glucose (Insta-Glucose) 15 gm PO PRN PRN PRN Reason: Hypoglycemia Heparin Sodium (Porcine) (Heparin) 5,000 unit SQ Q12 [facility] Last Admin: 10/31/19 21:57 Dose: 5,000 unit Documented by: Sodium Chloride (Sodium Chloride 0.9%) 1,000 mls @ 50 mls/hr IV .Q20H [facility] Stop: 11/02/19 09:54 Last Admin: 10/31/19 17:42 Dose: Not Given Documented by: Acetaminophen (Ofirmev) 650 mg in 65 mls @ 130 mls/hr IV Q6HP PRN; Protocol PRN Reason: Per Pain Protocol/Fever > 101 Last Infusion: 11/01/19 00:00 Dose: Infused Documented by: Magnesium Sulfate (Magnesium Sulfate) 2 gm in 50 mls @ 50 mls/hr IV UD PRN PRN Reason: MG = or < 1.7 Piperacillin Sod/Tazobactam (Sod 3.375 gm/ Dextrose) 50 mls @ 100 mls/hr IV Q6H [facility]; Protocol Last Admin: 11/01/19 06:02 Dose: 100 mls/hr Documented by: Vancomycin HCl 1,500 mg/ (Sodium Chloride) 500 mls @ 333.3 mls/hr IV Q12H [facility] Last Infusion: 10/31/19 23:30 Dose: Infused Documented by: Insulin Glargine (Lantus) 10 unit SQ BID [facility] Last Admin: 10/31/19 21:56 Dose: 10 units Documented by: Insulin Human Lispro (Humalog) 0 unit SQ ACHS [facility]; Protocol Last Admin: 11/01/19 07:59 Dose: 2 units Documented by: Iron Carb/Multivit/Marmet/Folic Acid (Multivitamin W/Minerals) 1 tab PO DAILY [facility] Last Admin: 10/31/19 09:20 Dose: Not Given Documented by: Melatonin (Melatonin 3mg Tablet) 3 mg PO HSP PRN PRN Reason: Insomnia Last Admin: 10/31/19 23:27 Dose: 3 mg Documented by: Ondansetron HCl (Zofran Odt) 4 mg SL Q4-6HP PRN; Protocol PRN Reason: Nausea And Vomiting Ondansetron HCl (Zofran) 4 mg IV Q4-6HP PRN; Protocol PRN Reason: Nausea And Vomiting Polyethylene Glycol (Miralax) 17 gm PO DAILYP PRN PRN Reason: Constipation Potassium Chloride (Klor-Con) 40 meq PO DAILYP PRN PRN Reason: K+ < 3.5 Senna/Docusate Sodium (Senna Plus Tablet) 1 tab PO HS [facility] Last Admin: 10/31/19 21:24 Dose: Not Given Documented by: Sitagliptin Phosphate (Januvia) 100 mg PO DAILY [facility] Last Admin: 10/31/19 10:23 Dose: 100 mg Documented by: Sodium Chloride (Saline Flush) 10 ml IV Q8 [facility] Last Admin: 11/01/19 06:02 Dose: Not Given Documented by: Vancomycin HCl (Vancomycin Per Pharmacy) 1 order IV UD [facility]; Protocol A/P Narrative A/P Narrative: A: *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 Campos -Arterial Dopplers negative for stenosis *Poorly controlled diabetes: A1c *Diabetic neuropathy: continue gabapentin *Obesity with a BMI over 35: Continue directed therapy/dietary intervention *Anemia, chronic: Plan: -Dr. Campos following -Wound care -De-escalate antibiotics based on operative cultures. d/c vanco -Diabetes management/diabetic education/basal panel insulin/CC diet -CM for Discharge planning -ppx: heparin full code Time Spent With Patient Time: Total time spent is greater than 50% in coordination of care (as documented) at patient's floor/unit and/or counseling patient: QUALITY VTE Deep Vein Thrombosis/Pulmonary Embolism Present on Admission: No
[2019-11-01] MEDS: DOCUSATE SODIUM 100 MG CAPSULE PO SCH ×2 (08:38→21:20)
[2019-11-01] MEDS: sitaGLIPtin 100 MG TABLET PO SCH (08:50)
[2019-11-01] MEDS: MULTIVIT,THER IRON,CA,FA & MIN 1 TABLET PO SCH (08:50)
[2019-11-01] MEDS: INSULIN GLARGINE, HUMAN 1 UNIT/0.01 ML SQ SCH ×2 (08:50→21:20)
[2019-11-01] MEDS: HEPARIN 5,000 UNIT/ML VIAL SQ SCH ×2 (08:50→21:19)
[2019-11-01] MEDS: GABAPENTIN 100 MG CAPSULE PO SCH ×3 (08:50→21:19)
[2019-11-01 08:58] LABS: Hemoglobin A1C 12.9 % HGB (4.0-6.0)
--- NOTE | 2019-11-01 11:07 | Discharge Summary ---
Discharge Provider Provider Patient information: Note initiated : 11/01/19 at 11:05 am Service Date, if different from initiated Date: [] Patient: Deisy Rutledge 53 y/o F admitted on 10/30/19 for Toe Pain. Chief Complaint: [] Date of admission: 10/30/19 21:25 Discharge date: 11/04/19 Consults: 10/30/19 Consult to Physician [CONS] Stat Comment: Consulting Provider: Rodolfo Lemos Reason For Exam: Physician to Consult 10/30/19 14:37 Consult to Physician [CONS] Stat Comment: Consulting Provider: Mike Campos Reason For Exam: Physician to Consult Discharge Meds Discharge Medications Home Medications blood-glucose meter #100 each 11/19/17 [Rx Confirmed 10/30/19 Last Taken Unknown] lancets #100 each 12/17/17 [Rx Confirmed 10/30/19 Last Taken Unknown] blood sugar diagnostic #100 each 03/06/19 [Rx Confirmed 10/30/19 Last Taken Unknown] gabapentin 100 mg PO TID #60 cap 10/26/19 [Rx Confirmed 10/30/19 Last Taken 10/30/19] glipizide 5 mg PO BIDAC #60 tab 10/26/19 [Rx Confirmed 10/30/19 Last Taken 10/30/19] metformin 1,000 mg PO BIDCC #60 tab 10/26/19 [Rx Confirmed 10/30/19 Last Taken 10/30/19] insulin glargine [Lantus Solostar U-100 Insulin] 10 unit SUB-Q BID #3 ml 11/01/19 [Rx Last Taken Unknown] COURSE Hospital Course Hospital course: Interval history: History of present illness: Ms. Rutledge is a 53 year old F with a history of controlled DM type II/diabetic neuropathy and diabetic foot ulcers with previous Rt 4th toe amputation who was admitted on 10/20 with infected left fourth toe ulcer. She was treated aggressively on antibiotics/wound care and debridements and was discharged home after 6 days of treatment on oral Keflex for beta streptococci on wound cultures. She was advised to continue aggressive blood sugar control as outpatient along with follow-up with wound care clinic She was today seen at wound care clinic and was sent to the ER by Dr. Campos after noticing gangrenous changes of the left fourth toe with exposed bone and n eed for further evaluation. Initial work-up in the ER with contrast CT consistent with gas gangrene/osteomyelitis involving left fourth toe. Patient was started antibiotics and subsequently hospitalist service was consulted for admission while patient will undergo toe amputation. At the time of evaluation patient is anxious. She is able to write history. She has been on Keflex but did not think the wound was any worse. She denies associated fever, shaking chills. 10/30-patient doing well. White count 6.2. Patient anxious however currently n.p.o. Will undergo toe amputation today by Dr. Campos. Left foot arterial duplex shows negative left lower extremity duplex exam. Will review postop. Continue CCD. 10/31 Amputation left fourth toe through MP joints yesterday by Dr. Campos. Poor sleep but otherwise no new complaints. No events overnight. 11/01 No overnight events or complaints. Will d/w ID regarding any need for further antibiotics s/p amputation. and placement 11/02 No new complaints overnight events. Stop antibiotics 48 hours after debridements. Waiting placement. 11/03 No new complaints overnight. Awaiting placement to rehab versus home with home health. 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 Campos -Arterial Dopplers negative for stenosis *Poorly controlled diabetes: A1c *Diabetic neuropathy: continue gabapentin *Obesity with a BMI over 35: Continue directed therapy/dietary intervention *Anemia, chronic: Discharge diagnosis: Diabetic foot infection with osteomyelitis and gangrene Secondary discharge diagnosis: Diabetes diabetic neuropathy obesity chronic anemia Time Spent with Patient Time attestation: Total time spent providing and/or coordinating discharge services: Time spent: Greater than 30 minutes EXAM Constitutional Vitals: Temp Pulse Resp BP Pulse Ox 97.5 F 83 18 122/77 93 11/01/19 06:55 11/01/19 06:55 11/01/19 06:55 11/01/19 06:55 11/01/19 06:55 Discharge Data Data Completed and Pending Labs on day of discharge: Labs from last 24 hours 11/01/19 11/01/19 11/01/19 08:55 05:38 05:38 WBC RBC Hgb Hct MCV MCH MCHC RDW Plt Count MPV Total Counted Seg Neutrophils % Band Neutrophils % Lymphocytes % Monocytes % (Manual) Eosinophils % (Manual) Platelet Estimate RBC Morphology Sodium 135 Potassium 4.2 Chloride 105 Carbon Dioxide 23 Anion Gap 7.0 L BUN 22 H Creatinine 1.1 GFR Calculation 58 Glucose 174 H Hemoglobin A1c 12.9 H Estim Average Glucose 324 Uric Acid 4.9 Calcium 8.2 L Phosphorus 3.9 Magnesium 2.0 Total Bilirubin 0.5 Direct Bilirubin < 0.2 GGT 30 AST 12 ALT 15 Alkaline Phosphatase 74 Lactate Dehydrogenase 173 Total Protein 5.5 L Albumin 2.8 L Globulin 2.7 Albumin/Globulin Ratio 1.0 Triglycerides 247 H Vancomycin Trough 25.6 H* 11/01/19 05:38 WBC 6.1 RBC 3.61 Hgb 9.8 L Hct 28.9 L MCV 80.1 MCH 27.1 MCHC 33.9 RDW 12.5 Plt Count 349 MPV 10.3 Total Counted 100 Seg Neutrophils % 69 Band Neutrophils % 2 Lymphocytes % 16 Monocytes % (Manual) 9 Eosinophils % (Manual) 4 Platelet Estimate Normal RBC Morphology Normal Sodium Potassium Chloride Carbon Dioxide Anion Gap BUN Creatinine GFR Calculation Glucose Hemoglobin A1c Estim Average Glucose Uric Acid Calcium Phosphorus Magnesium Total Bilirubin Direct Bilirubin GGT AST ALT Alkaline Phosphatase Lactate Dehydrogenase Total Protein Albumin Globulin Albumin/Globulin Ratio Triglycerides Vancomycin Trough Preliminary micro results at discharge 10/31/19 10:21 Wound Culture - Preliminary Foot - Left Discharge Plan Patient/Caregiver Discharge Instructions Activity: increase activity as tolerated Diet: Consistent Carbohydrate Activity Restrictions/Additional Instructions: Follow-up with PCP in 3 to 7 days. Leave dressing intact until saturday appointment with Dr. Campos. Monitor blood glucose tid and keep log to bring to pcp. Prescriptions: New Lantus Solostar U-100 Insulin 100 unit/mL (3 mL) insulin pen 10 unit SUB-Q BID Qty: 3 RF: 0 Continued (DME) Truetest Test Strips strip See Dose Instructions .ROUTE .MEDSUPPLY Qty: 100 RF: 1 (DME) blood-glucose meter misc See Dose Instructions .ROUTE .MEDSUPPLY Qty: 100 RF: 6 (DME) lancets [ReliOn Ultra Thin Plus Lancets] misc See Dose Instructions .ROUTE .MEDSUPPLY Qty: 100 RF: 1 gabapentin 100 mg Capsule 100 mg PO TID Qty: 60 RF: 0 metformin 500 mg Tablet 1,000 mg PO BIDCC Qty: 60 RF: 0 glipizide 2.5 mg Tablet Extended Release 24hr 5 mg PO BIDAC Qty: 60 RF: 0 Discontinued ibuprofen 200 mg Capsule 400 mg PO Q6H PRN (Reason: Pain) RF: 0 cephalexin [Keflex] 500 mg capsule 500 mg PO Q8H 10 Days Qty: 30 RF: 0 Other Ambulatory Orders: Crutches (ONCE) Location: None Selected Ordered By: Mike Campos Wound Care Instructions (CONT) Location: None Selected Ordered By: Mike Campos Rollabout (ONCE) Location: None Selected Ordered By: Mike Campos Follow Up Plan Follow up with: Karen Ward PA-C [Physician Edging Machine Operator] - (Schedule follow up with primary at your visit 11/05) Mike Campos MD [Physician] - 11/06/19 8:20 am (Follow up at clinic 1 week after discharge from hospital) Patient Disposition: Xfer SNF Prognosis: Fair Rehab Potential: Fair I certify that the patient requires SNF services: Yes Overall status at discharge: patient is progressing back to baseline Discharge Orders: Discharge Order (Routine); Ordered 11/04/19 [facility]/Pulmonary Embolism Present on Admission: No
--- NOTE | 2019-11-01 13:09 | General Surgery Progress Note ---
SUBJECTIVE Subjective Patient information: Note initiated : 11/01/19 at 12:58 pm Service Date, if different from initiated Date: [] Patient: Deisy Rutledge 53 y/o F admitted on 10/30/19 for Toe Pain. Chief Complaint: [] Additional PMFSH (Level 3 Only): Patient seen with Sandy SHARP. Progress reviewed. Patient had an uneventful night. POST OP Dressings, CDI Patient had gotten OOB, with heel weight bearing to transfer position and go to Bath Room. She is NWB at this time. Lives at home by herself. Has stairs to climb. Constitutional Vitals: Vital Signs Temp Pulse Resp BP Pulse Ox 98 F 82 16 128/79 97 11/01/19 11:43 11/01/19 11:43 11/01/19 11:43 11/01/19 11:43 11/01/19 11:43 Period Temp Pulse Resp BP Sys/Cain Pulse Ox Last 24 Hr 97.2 F-98.4 F 82-90 16-20 114-130/69-79 93-97 Intake and Output 10/31/19 11/01/19 11/01/19 21:59 05:59 13:59 Intake Total 1730 915 570 Output Total 1050 850 750 Balance 680 65 -180 Weight 224 lb Intake & Output: Intake & Output 10/31/19 11/01/19 11/01/19 21:59 05:59 13:59 Intake Total 1730 915 570 Output Total 1050 850 750 Balance 680 65 -180 Weight 224 lb Intake: IV 50 615 50 Zosyn 3.375 gm In Dextrose 5% 50 50 50 in Water 50 ml @ 100 mls/hr IV Q6H [facility] Rx#:[id number] Vancomycin 1,500 mg In Sodium 500 Chloride 0.9% 500 ml @ 333.3 mls/hr IV Q12H [facility] Rx#: [id number] Oral 1680 300 520 Output: Void Amount 1050 850 750 Other: Meal Breakfast Percent of Meal Consumed 95% Feeding Ability Independent Urine Appearance Clear Clear Clear Urine Color Bright Yellow Bright Yellow Bright Yellow Urine Odor Normal Strong Stool Size Moderate Small Stool Color Brown Brown Green Stool Consistency Soft Normal for Patient Loose # Bowel Movements 1 1 Exam: AVSS. No acute changes in LESLIE. Post surgical dressings CDI. Foot and toes PWD Expanded Skin Exam Distribution of rash: Present LLE Body image: 1. Additional findings Additional findings: OPEN wound s/p toe amputation for sepsis, dry gangrene. Satisfactory post surgical progress. A/P Narrative A/P Narrative: Assessment: Satisfactory post operative progress. Plan: Continue current treatment. AWAIT Case management and PT input prior to discharge. Patient lives by herself. NWB on left foot and leg. Has STAIRS to climb and is at risk for imbalance and fall due to neuropathy. Will need plan for post operative care outside of hospital. ? Short term rehab PT/OT if aproved by insurance. I already spoke with CAR RENTAL SALES ASSISTANT for this insurance company, Dr. Keri BAILON in [place]. [place] / SW to coordinate post discharge care plan. Time Spent With Patient Time: Total time spent is greater than 50% in coordination of care (as documented) at patient's floor/unit and/or counseling patient: Total time spent with greater than 50% in coordination of care (as documented) at patient's floor/unit and/or counseling patient:: 15 - 24 minutes
[2019-11-01] MEDS: SENNOSIDES/DOCUSATE SODIUM 1 TAB TABLET PO SCH (21:20)
[2019-11-02] MEDS: MELATONIN 3 MG TABLET PO PRN (02:45)
[2019-11-02] MEDS: ACETAMINOPHEN 325 MG TABLET PO PRN ×2 (04:20→08:24)
[2019-11-02] MEDS: 0.9 % SODIUM CHLORIDE 10 ML SYRINGE IV SCH ×3 (05:26→20:47)
[2019-11-02] MEDS: PIPERACILLIN SODIUM/TAZOBACTAM 3.375 GM in DEXTROSE 5% IN WATER 50 ML IV SCH ×4 (05:26→23:25)
--- NOTE | 2019-11-02 07:48 | Internal Med Progress Note ---
SUBJECTIVE Subjective Patient information: Note initiated : 11/02/19 at 7:45 am Service Date, if different from initiated Date: [] Patient: Deisy Rutledge 53 y/o F admitted on 10/30/19 for Toe Pain. Chief Complaint: [] Interval history: History of present illness: Ms. Rutledge is a 53 year old F with a history of controlled DM type II/diabetic neuropathy and diabetic foot ulcers with previous Rt 4th toe amputation who was admitted on 10/20 with infected left fourth toe ulcer. She was treated aggressively on antibiotics/wound care and debridements and was discharged home after 6 days of treatment on oral Keflex for beta streptococci on wound cultures. She was advised to continue aggressive blood sugar control as outpatient along with follow-up with wound care clinic She was today seen at wound care clinic and was sent to the ER by Dr. Campos after noticing gangrenous changes of the left fourth toe with exposed bone and need for further evaluation. Initial work-up in the ER with contrast CT consistent with gas gangrene/osteomyelitis involving left fourth toe. Patient was started antibiotics and subsequently hospitalist service was consulted for admission while patient will undergo toe amputation. At the time of evaluation patient is anxious. She is able to write history. She has been on Keflex but did not think the wound was any worse. She denies associated fever, shaking chills. 10/30-patient doing well. White count 6.2. Patient anxious however currently n.p.o. Will undergo toe amputation today by Dr. Campos. Left foot arterial duplex shows negative left lower extremity duplex exam. Will review postop. Continue CCD. 10/31 Amputation left fourth toe through MP joints yesterday by Dr. Campos. Poor s leep but otherwise no new complaints. No events overnight. 11/01 No overnight events or complaints. Will d/w ID regarding any need for further antibiotics s/p amputation. and placement Review of Systems: denies headache/fever/chills/nausea/vomiting/chest or abdominal pain/cough/dyspnea/diarrhea. Otherwise see above. Constitutional Vitals: Vital Signs Temp Pulse Resp BP Pulse Ox 97.9 F 73 18 106/67 94 11/02/19 07:31 11/02/19 07:31 11/02/19 07:31 11/02/19 07:31 11/02/19 07:31 Period Temp Pulse Resp BP Sys/Cain Pulse Ox Last 24 Hr 97.8 F-98.5 F 73-91 16-18 101-133/59-81 92-97 Intake and Output 11/01/19 11/02/19 11/02/19 21:59 05:59 13:59 Intake Total 530 650 Output Total 600 Balance -70 650 Weight 106.282 kg Intake & Output: Intake & Output 11/01/19 11/02/19 11/02/19 21:59 05:59 13:59 Intake Total 530 650 Output Total 600 Balance -70 650 Weight 106.282 kg Intake: IV 50 50 Zosyn 3.375 gm In Dextrose 5% 50 50 in Water 50 ml @ 100 mls/hr IV Q6H [facility] Rx#:[id number] Oral 480 600 Output: Void Amount 600 Other: Meal Dinner Percent of Meal Consumed 100% Feeding Ability Independent Urine Appearance Clear Urine Color Bright Yellow Stool Size Moderate Small Stool Color Brown Brown Stool Consistency Soft Loose # Voids 1 1 # Bowel Movements 1 Exam: General: Alert, Awake, No acute Distress Eyes/N/T: EOMI, Head/Neck: neck supple, CV: RRR, No murmurs, Pulm: mild bibasilar rales, no wheezing/rhonchi/rales Abd: soft, nontender, +BS x4 Ext: no clubbing/cyanosis/edema. Left foot in dressings Neuro: Alert, no focal deficits, moves all extremities, Skin: warm/dry OBJ DATA Labs CBC & Chem 7: 11/01/19 05:38 11/01/19 05:38 Labs: Abnormal Lab Results 11/01/19 11/01/19 11/01/19 08:55 05:38 05:38 Hgb Hct MCV Lymph # (Auto) Carbon Dioxide Anion Gap 7.0 L BUN 22 H Glucose 174 H Hemoglobin A1c 12.9 H Calcium 8.2 L GGT Total Protein 5.5 L Albumin 2.8 L Triglycerides 247 H Urine Protein Urine Glucose (UA) Urine Occult Blood Amorphous Crystals Vancomycin Trough 25.6 H* 11/01/19 10/31/19 10/31/19 05:38 05:51 04:52 Hgb 9.8 L Hct 28.9 L MCV Lymph # (Auto) Carbon Dioxide 21 L Anion Gap BUN 28 H Glucose 218 H Hemoglobin A1c Calcium GGT 48 H Total Protein 5.7 L Albumin 2.8 L Triglycerides 257 H Urine Protein 100 A Urine Glucose (UA) 50 A Urine Occult Blood 0.03 A Amorphous Crystals Few A Vancomycin Trough 10/31/19 10/30/19 10/30/19 04:52 14:22 14:22 Hgb 10.0 L 10.4 L Hct 30.2 L 30.4 L MCV 79.4 L Lymph # (Auto) 1.13 L Carbon Dioxide Anion Gap BUN 24 H Glucose 140 H Hemoglobin A1c Calcium GGT Total Protein Albumin Triglycerides Urine Protein Urine Glucose (UA) Urine Occult Blood Amorphous Crystals Vancomycin Trough Meds: Medications Acetaminophen (Tylenol) 650 mg PO Q4-6HP PRN; Protocol PRN Reason: Per Pain Protocol/Fever > 101 Last Admin: 11/02/19 04:20 Dose: 650 mg Documented by: Bisacodyl (Dulcolax) 10 mg MD Q2-3DAYS PRN PRN Reason: Constipation Dextrose (Dextrose 50%) 0 ml IV UD PRN PRN Reason: Hypoglycemia Diagnostic Test (Pha) (Accu-Chek) 1 each FS ACHS [facility] Last Admin: 11/01/19 21:19 Dose: 1 each Documented by: Docusate Sodium (Colace) 100 mg PO BID [facility] Last Admin: 11/01/19 21:20 Dose: Not Given Documented by: Gabapentin (Neurontin) 100 mg PO TID [facility] Last Admin: 11/01/19 21:19 Dose: 100 mg Documented by: Glucose (Insta-Glucose) 15 gm PO PRN PRN PRN Reason: Hypoglycemia Heparin Sodium (Porcine) (Heparin) 5,000 unit SQ Q12 [facility] Last Admin: 11/01/19 21:19 Dose: 5,000 unit Documented by: Acetaminophen (Ofirmev) 650 mg in 65 mls @ 130 mls/hr IV Q6HP PRN; Protocol PRN Reason: Per Pain Protocol/Fever > 101 Last Infusion: 11/01/19 00:00 Dose: Infused Documented by: Magnesium Sulfate (Magnesium Sulfate) 2 gm in 50 mls @ 50 mls/hr IV UD PRN PRN Reason: MG = or < 1.7 Piperacillin Sod/Tazobactam (Sod 3.375 gm/ Dextrose) 50 mls @ 100 mls/hr IV Q6H [facility]; Protocol Last Admin: 11/02/19 05:26 Dose: 100 mls/hr Documented by: Insulin Glargine (Lantus) 10 unit SQ BID [facility] Last Admin: 11/01/19 21:20 Dose: 10 units Documented by: Insulin Human Lispro (Humalog) 0 unit SQ ACHS [facility]; Protocol Last Admin: 11/01/19 21:20 Dose: 3 units Documented by: Iron Carb/Multivit/Cryptologic Technician/Folic Acid (Multivitamin W/Minerals) 1 tab PO DAILY [facility] Last Admin: 11/01/19 08:50 Dose: 1 tab Documented by: Melatonin (Melatonin 3mg Tablet) 3 mg PO HSP PRN PRN Reason: Insomnia Last Admin: 11/02/19 02:45 Dose: 3 mg Documented by: Ondansetron HCl (Zofran Odt) 4 mg SL Q4-6HP PRN; Protocol PRN Reason: Nausea And Vomiting Ondansetron HCl (Zofran) 4 mg IV Q4-6HP PRN; Protocol PRN Reason: Nausea And Vomiting Polyethylene Glycol (Miralax) 17 gm PO DAILYP PRN PRN Reason: Constipation Potassium Chloride (Klor-Con) 40 meq PO DAILYP PRN PRN Reason: K+ < 3.5 Senna/Docusate Sodium (Senna Plus Tablet) 1 tab PO HS [facility] Last Admin: 11/01/19 21:20 Dose: Not Given Documented by: Sitagliptin Phosphate (Januvia) 100 mg PO DAILY [facility] Last Admin: 11/01/19 08:50 Dose: 100 mg Documented by: Sodium Chloride (Saline Flush) 10 ml IV Q8 [facility] Last Admin: 11/02/19 05:26 Dose: 10 ml Documented by: A/P Narrative A/P Narrative: A: *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 Campos -Arterial Dopplers negative for stenosis *Poorly controlled diabetes: A1c 12.9 *Diabetic neuropathy: continue gabapentin *Obesity with a BMI over 35: Continue directed therapy/dietary intervention *Anemia, chronic: Plan: -Dr. Campos following -Wound care -d/w ID regarding any abx s/p amputation -Diabetes management/diabetic education/basal insulin(increase)/CC diet - for Discharge planning -ppx: heparin full code Time Spent With Patient Time: Total time spent is greater than 50% in coordination of care (as documented) at patient's floor/unit and/or counseling patient: QUALITY VTE Deep Vein Thrombosis/Pulmonary Embolism Present on Admission: No
--- NOTE | 2019-11-02 08:07 | Operative Note ---
DATE OF OPERATION: 10/31/2019 PREOPERATIVE DIAGNOSES: 1. Sepsis. 2. Open wound, diabetic foot ulcer, dorsal surface PIPJ left fourth toe. 3. Dry gangrene on imaging study. POSTOPERATIVE DIAGNOSES: 1. Sepsis. 2. Open wound, diabetic foot ulcer, dorsal surface PIPJ left fourth toe. 3. Dry gangrene on imaging study. OPERATION: Operation amputation of left fourth toe through MP joint. Final dimensions: Open wound 3 x 2 x 3.5 CM ANESTHESIA: IV sedation. PIPE ORGAN INSTALLER: Randy Muir CRNA. SURGEON: Mike Campos MD INTRAOPERATIVE FINDINGS: Open wound with exposed bone of proximal phalanx. PROCEDURE IN DETAIL: After obtaining informed consent, patient was taken to the operating room. A timeout was called. Intravenous antibiotics were given. She was placed in Trendelenburg position. Under close hemodynamic monitoring and pulse oxygen saturation check, intravenous analgesia was given by the board certified music therapist. Preoperative photograph was taken. The left lower extremity was widely cleaned, prepped and draped from the knee down to the toes. The patient has peripheral neuropathy. We did not give any local anesthetic at the site. The toe was secured at the tip with a towel clip. Incision was made in the skin crease starting on the plantar aspect and curving between the adjacent toes towards the dorsal surface of left fourth toe. The toe was amputated with sharp dissection through the subcutaneous tissues down to the joint surface of the MPJ. The exposed head of the metatarsal bone was taken down with rongeur. Make Up Worker specimens were sent for pathology and microbiology. Bleeding vessels were suture ligated with 2-0 Vicryl ties. Copious irrigation of the field was carried out with normal saline containing 800 mg of gentamicin solution. We used 3 liters of pulse lavage irrigation. Towards completion, the field was clean and hemostasis was satisfactory. A completion photograph was taken. The wound was packed open with Xeroform gauze reinforced with 4 x 4 gauze and secured with Kerlix, Coban and SHARIF bandages respectively. Estimated blood loss 20 mL Count of swabs, instruments and needles was reported to be correct. VD:bety Job ID: [id number] Doc ID: [id number] Mike Campos MD [facility] CENTERFederico
[2019-11-02] MEDS: INSULIN LISPRO 1 UNIT/0.01 ML UNIT SQ SCH ×4 (08:20→20:47)
[2019-11-02] MEDS: DOCUSATE SODIUM 100 MG CAPSULE PO SCH ×2 (08:20→20:42)
[2019-11-02] MEDS: INSULIN GLARGINE, HUMAN 1 UNIT/0.01 ML SQ SCH ×2 (09:11→20:47)
[2019-11-02] MEDS: metFORMIN 500 MG TABLET PO SCH ×2 (09:11→17:41)
[2019-11-02] MEDS: sitaGLIPtin 100 MG TABLET PO SCH (09:11)
[2019-11-02] MEDS: HEPARIN 5,000 UNIT/ML VIAL SQ SCH ×2 (09:11→20:46)
[2019-11-02] MEDS: GABAPENTIN 100 MG CAPSULE PO SCH ×3 (09:12→20:47)
[2019-11-02] MEDS: MULTIVIT,THER IRON,CA,FA & MIN 1 TABLET PO SCH (09:12)
--- NOTE | 2019-11-02 09:51 | General Surgery Progress Note ---
SUBJECTIVE Subjective Patient information: Note initiated : 11/02/19 at 9:42 am Service Date, if different from initiated Date: [] Patient: Deisy Rutledge 53 y/o F admitted on 10/30/19 for Toe Pain. Chief Complaint: [] Additional PMFSH (Level 3 Only): Post Op Day # 2. Patient had an uneventful night. Blood sugar 143 this AM. Feels better. Reviewed manager night nurse's note. Constitutional Vitals: Vital Signs Temp Pulse Resp BP Pulse Ox 97.9 F 73 18 106/67 94 11/02/19 07:31 11/02/19 07:31 11/02/19 07:31 11/02/19 07:31 11/02/19 07:31 Period Temp Pulse Resp BP Sys/Cain Pulse Ox Last 24 Hr 97.8 F-98.5 F 73-91 16-18 101-133/59-81 92-97 Intake and Output 11/01/19 11/02/19 11/02/19 21:59 05:59 13:59 Intake Total 570 579 6844 Output Total 600 Balance -70 650 1200 Weight 234 lb 5 oz Intake & Output: Intake & Output 11/01/19 11/02/19 11/02/19 21:59 05:59 13:59 Intake Total 085 667 4958 Output Total 600 Balance -70 650 1200 Weight 234 lb 5 oz Intake: IV 50 50 Zosyn 3.375 gm In Dextrose 5% 50 50 in Water 50 ml @ 100 mls/hr IV Q6H [facility] Rx#:[id number] Oral 582 359 0044 Output: Void Amount 600 Other: Meal Dinner Breakfast Percent of Meal Consumed 100% 95% Feeding Ability Independent Independent Urine Appearance Clear Urine Color Bright Yellow Stool Size Moderate Small Stool Color Brown Brown Stool Consistency Soft Loose # Voids 1 1 # Bowel Movements 1 Exam: AVSS. No changes LESLIE. L/E: LEFT foot 4th toe amputation site wound is open and wound bed is granulating / clean. NO odor, NO purulence, No warmth and NO crepitus. Wound cultures NO growth. Lab results reviewed. A/P Narrative A/P Narrative: Assessment: Satisfactory post surgical progress. Ready for discharge and transfer to short term rehab facility. Wound VAC to be placed at the facility. PT with NWB Left foot at the facility, Roll about scooter per PT WOUND care and VAC orders per wound care nurse. PO antibiotics at time of discharge per hospitalist physician. Plan: OK for discharge from wound care point of view to Rehab. F/u at the wound care center in ONE week. THANKS. Time Spent With Patient Time: Total time spent is greater than 50% in coordination of care (as documented) at patient's floor/unit and/or counseling patient: Total time spent with greater than 50% in coordination of care (as documented) at patient's floor/unit and/or counseling patient:: 25 - 35 minutes
[2019-11-02] MEDS: SENNOSIDES/DOCUSATE SODIUM 1 TAB TABLET PO SCH (20:42)
[2019-11-03] MEDS: MELATONIN 3 MG TABLET PO PRN (01:37)
[2019-11-03] MEDS: 0.9 % SODIUM CHLORIDE 10 ML SYRINGE IV SCH ×3 (05:41→21:51)
[2019-11-03] MEDS: PIPERACILLIN SODIUM/TAZOBACTAM 3.375 GM in DEXTROSE 5% IN WATER 50 ML IV SCH (05:41)
[2019-11-03] MEDS: metFORMIN 500 MG TABLET PO SCH ×2 (07:50→16:29)
--- NOTE | 2019-11-03 07:58 | Internal Med Progress Note ---
SUBJECTIVE Subjective Patient information: Note initiated : 11/03/19 at 7:56 am Service Date, if different from initiated Date: [] Patient: Deisy Rutledge 53 y/o F admitted on 10/30/19 for Toe Pain. Chief Complaint: [] Interval history: History of present illness: Ms. Rutledge is a 53 year old F with a history of controlled DM type II/diabetic neuropathy and diabetic foot ulcers with previous Rt 4th toe amputation who was admitted on 10/20 with infected left fourth toe ulcer. She was treated aggressively on antibiotics/wound care and debridements and was discharged home after 6 days of treatment on oral Keflex for beta streptococci on wound cultures. She was advised to continue aggressive blood sugar control as outpatient along with follow-up with wound care clinic She was today seen at wound care clinic and was sent to the ER by Dr. Campos after noticing gangrenous changes of the left fourth toe with exposed bone and need for further evaluation. Initial work-up in the ER with contrast CT consistent with gas gangrene/osteomyelitis involving left fourth toe. Patient was started antibiotics and subsequently hospitalist service was consulted for admission while patient will undergo toe amputation. At the time of evaluation patient is anxious. She is able to write history. She has been on Keflex but did not think the wound was any worse. She denies associated fever, shaking chills. 10/30-patient doing well. White count 6.2. Patient anxious however currently n.p.o. Will undergo toe amputation today by Dr. Campos. Left foot arterial duplex shows negative left lower extremity duplex exam. Will review postop. Continue CCD. 10/31 Amputation left fourth toe through MP joints yesterday by Dr. Campos. Poor s leep but otherwise no new complaints. No events overnight. 11/01 No overnight events or complaints. Will d/w ID regarding any need for further antibiotics s/p amputation. and placement 11/02 No new complaints overnight events. Stop antibiotics 48 hours after debridements. Waiting placement. Review of Systems: denies headache/fever/chills/nausea/vomiting/chest or abdominal pain/cough/dyspnea/diarrhea. Otherwise see above. Constitutional Vitals: Vital Signs Temp Pulse Resp BP Pulse Ox 97.6 F 87 18 123/72 95 11/03/19 07:27 11/03/19 07:27 11/03/19 07:27 11/03/19 07:27 11/03/19 07:27 Period Temp Pulse Resp BP Sys/Cain Pulse Ox Last 24 Hr 97.0 F-98.0 F 80-88 16-18 108-131/66-79 92-96 Intake and Output 11/02/19 11/03/19 11/03/19 21:59 05:59 13:59 Intake Total 1830 600 Output Total 1 Balance 1829 600 Weight 107.275 kg Intake & Output: Intake & Output 11/02/19 11/03/19 11/03/19 21:59 05:59 13:59 Intake Total 1830 600 Output Total 1 Balance 1829 600 Weight 107.275 kg Intake: IV 50 50 Zosyn 3.375 gm In Dextrose 5% 50 50 in Water 50 ml @ 100 mls/hr IV Q6H [facility] Rx#:[id number] Oral 1780 550 Output: Void Amount 1 Other: Meal Dinner Percent of Meal Consumed 100% Feeding Ability Independent Stool Size Small Small Stool Color Brown Brown Stool Consistency Loose Loose # Voids 1 1 1 # Bowel Movements 2 1 Exam: General: Alert, Awake, No acute Distress Eyes/N/T: EOMI, Head/Neck: neck supple, CV: RRR, No murmurs, Pulm: mild bibasilar rales, no wheezing/rhonchi/rales Abd: soft, nontender, +BS x4 Ext: no clubbing/cyanosis/edema. Left foot in dressings Neuro: Alert, no focal deficits, moves all extremities, Skin: warm/dry OBJ DATA Labs CBC & Chem 7: 11/01/19 05:38 11/01/19 05:38 Labs: Abnormal Lab Results 11/01/19 11/01/19 11/01/19 08:55 05:38 05:38 Hgb Hct Anion Gap 7.0 L BUN 22 H Glucose 174 H Hemoglobin A1c 12.9 H Calcium 8.2 L Total Protein 5.5 L Albumin 2.8 L Triglycerides 247 H Vancomycin Trough 25.6 H* 11/01/19 05:38 Hgb 9.8 L Hct 28.9 L Anion Gap BUN Glucose Hemoglobin A1c Calcium Total Protein Albumin Triglycerides Vancomycin Trough Meds: Medications Acetaminophen (Tylenol) 650 mg PO Q4-6HP PRN; Protocol PRN Reason: Per Pain Protocol/Fever > 101 Last Admin: 11/02/19 08:24 Dose: 650 mg Documented by: Bisacodyl (Dulcolax) 10 mg DE Q2-3DAYS PRN PRN Reason: Constipation Dextrose (Dextrose 50%) 0 ml IV UD PRN PRN Reason: Hypoglycemia Diagnostic Test (Pha) (Accu-Chek) 1 each FS [facility] Last Admin: 11/03/19 07:50 Dose: 1 each Documented by: Docusate Sodium (Colace) 100 mg PO BID [facility] Last Admin: 11/02/19 20:42 Dose: Not Given Documented by: Gabapentin (Neurontin) 100 mg PO TID [facility] Last Admin: 11/02/19 20:47 Dose: 100 mg Documented by: Glucose (Insta-Glucose) 15 gm PO PRN PRN PRN Reason: Hypoglycemia Heparin Sodium (Porcine) (Heparin) 5,000 unit SQ Q12 [facility] Last Admin: 11/02/19 20:46 Dose: 5,000 unit Documented by: Acetaminophen (Ofirmev) 650 mg in 65 mls @ 130 mls/hr IV Q6HP PRN; Protocol PRN Reason: Per Pain Protocol/Fever > 101 Last Infusion: 11/01/19 00:00 Dose: Infused Documented by: Magnesium Sulfate (Magnesium Sulfate) 2 gm in 50 mls @ 50 mls/hr IV UD PRN PRN Reason: MG = or < 1.7 Insulin Glargine (Lantus) 12 unit SQ BID [facility] Last Admin: 11/02/19 20:47 Dose: 12 unit Documented by: Insulin Human Lispro (Humalog) 0 unit SQ [facility]; Protocol Last Admin: 11/02/19 20:47 Dose: 2 units Documented by: Iron Carb/Multivit/[place]/Folic Acid (Multivitamin W/Minerals) 1 tab PO DAILY [facility] Last Admin: 11/02/19 09:12 Dose: 1 tab Documented by: Melatonin (Melatonin 3mg Tablet) 3 mg PO HSP PRN PRN Reason: Insomnia Last Admin: 11/03/19 01:37 Dose: 3 mg Documented by: Met[facility] ([facility]) [facility] Last Admin: 11/03/19 07:50 Dose: 1,000 mg Documented by: Ondansetron HCl (Zofran Odt) 4 mg SL Q4-6HP PRN; Protocol PRN Reason: Nausea And Vomiting Ondansetron HCl (Zofran) 4 mg IV Q4-6HP PRN; Protocol PRN Reason: Nausea And Vomiting Polyethylene Glycol (Miralax) 17 gm PO DAILYP PRN PRN Reason: Constipation Potassium Chloride (Klor-Con) 40 meq PO DAILYP PRN PRN Reason: K+ < 3.5 Senna/Docusate Sodium (Senna Plus Tablet) 1 tab PO HS [facility] Last Admin: 11/02/19 20:42 Dose: Not Given Documented by: Sitagliptin Phosphate (Januvia) 100 mg PO DAILY [facility] Last Admin: 11/02/19 09:11 Dose: 100 mg Documented by: Sodium Chloride (Saline Flush) 10 ml IV Q8 [facility] Last Admin: 11/03/19 05:41 Dose: 10 ml Documented by: A/P Narrative A/P Narrative: A: *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 Campos -Arterial Dopplers negative for stenosis *Poorly controlled diabetes: A1c 12.9 *Diabetic neuropathy: continue gabapentin *Obesity with a BMI over 35: Continue directed therapy/dietary intervention *Anemia, chronic: Plan: -Dr. Campos following -Wound care -discussed with ID. will d/c abx 48hrs after debridement. -Diabetes management/diabetic education/basal insulin(increased)/CC diet -CM for Discharge planning -ppx: heparin Time Spent With Patient Time: Total time spent is greater than 50% in coordination of care (as documented) at patient's floor/unit and/or counseling patient: QUALITY VTE Deep Vein Thrombosis/Pulmonary Embolism Present on Admission: No
[2019-11-03] MEDS ORDERED: FUROSEMIDE 20 MG/2 ML VIAL IV ONE (08:18)
[2019-11-03] MEDS ORDERED: ALBUMIN HUMAN 12.5 GM/50 ML BAG IV ONE (08:18)
[2019-11-03] MEDS: INSULIN LISPRO 1 UNIT/0.01 ML UNIT SQ SCH ×4 (10:59→21:51)
[2019-11-03] MEDS: INSULIN GLARGINE, HUMAN 1 UNIT/0.01 ML SQ SCH ×2 (11:00→21:51)
[2019-11-03] MEDS: HEPARIN 5,000 UNIT/ML VIAL SQ SCH ×2 (11:00→21:51)
[2019-11-03] MEDS: sitaGLIPtin 100 MG TABLET PO SCH (11:00)
[2019-11-03] MEDS: GABAPENTIN 100 MG CAPSULE PO SCH ×3 (11:00→21:51)
[2019-11-03] MEDS: MULTIVIT,THER IRON,CA,FA & MIN 1 TABLET PO SCH (11:00)
[2019-11-03] MEDS: DOCUSATE SODIUM 100 MG CAPSULE PO SCH ×2 (11:00→21:02)
[2019-11-03] MEDS: SENNOSIDES/DOCUSATE SODIUM 1 TAB TABLET PO SCH (21:02)
--- NOTE | 2019-11-04 07:19 | Internal Med Progress Note ---
SUBJECTIVE Subjective Patient information: Note initiated : 11/04/19 at 7:18 am Service Date, if different from initiated Date: [] Patient: Deisy Rutledge 53 y/o F admitted on 10/30/19 for Toe Pain. Chief Complaint: [] Interval history: History of present illness: Ms. Rutledge is a 53 year old F with a history of controlled DM type II/diabetic neuropathy and diabetic foot ulcers with previous Rt 4th toe amputation who was admitted on 10/20 with infected left fourth toe ulcer. She was treated aggressively on antibiotics/wound care and debridements and was discharged home after 6 days of treatment on oral Keflex for beta streptococci on wound cultures. She was advised to continue aggressive blood sugar control as outpatient along with follow-up with wound care clinic She was today seen at wound care clinic and was sent to the ER by Dr. Campos after noticing gangrenous changes of the left fourth toe with exposed bone and need for further evaluation. Initial work-up in the ER with contrast CT consistent with gas gangrene/osteomyelitis involving left fourth toe. Patient was started antibiotics and subsequently hospitalist service was consulted for admission while patient will undergo toe amputation. At the time of evaluation patient is anxious. She is able to write history. She has been on Keflex but did not think the wound was any worse. She denies associated fever, shaking chills. 10/30-patient doing well. White count 6.2. Patient anxious however currently n.p.o. Will undergo toe amputation today by Dr. Campos. Left foot arterial duplex shows negative left lower extremity duplex exam. Will review postop. Continue CCD. 10/31 Amputation left fourth toe through MP joints yesterday by Dr. Campos. Poor s leep but otherwise no new complaints. No events overnight. 11/01 No overnight events or complaints. Will d/w ID regarding any need for further antibiotics s/p amputation. and placement 11/02 No new complaints overnight events. Stop antibiotics 48 hours after debridements. Waiting placement. 11/03 No new complaints overnight. Awaiting placement to rehab versus home with home health. Review of Systems: denies headache/fever/chills/nausea/vomiting/chest or abdominal pain/cough/dyspnea/diarrhea. Otherwise see above. Constitutional Vitals: Vital Signs Temp Pulse Resp BP Pulse Ox 98.3 F 78 18 127/77 93 07/22/20 06:55 11/04/19 06:55 11/04/19 06:55 11/04/19 06:55 11/04/19 06:55 Period Temp Pulse Resp BP Sys/Cain Pulse Ox Last 24 Hr 97.5 F-98.8 F 78-92 14-18 107-136/67-81 90-95 Intake and Output 11/03/19 11/04/19 11/04/19 21:59 05:59 13:59 Intake Total 1100 250 Balance 1100 250 Weight 106.957 kg Intake & Output: Intake & Output 11/03/19 11/04/19 11/04/19 21:59 05:59 13:59 Intake Total 1100 250 Balance 1100 250 Weight 106.957 kg Intake: Oral 1100 250 Other: Meal Dinner Percent of Meal Consumed 100% Stool Size Small Moderate Stool Color Brown Stool Consistency Loose Liquid # Voids 1 1 # Bowel Movements 1 1 Exam: General: Alert, Awake, No acute Distress Eyes/N/T: EOMI, Head/Neck: neck supple, CV: RRR, No murmurs, Pulm: mild bibasilar rales improved, no wheezing/rhonchi/rales Abd: soft, nontender, +BS x4 Ext: no clubbing/cyanosis/edema. Left foot in dressings Neuro: Alert, no focal deficits, moves all extremities, Skin: warm/dry OBJ DATA Labs CBC & Chem 7: 11/01/19 05:38 11/01/19 05:38 Labs: Abnormal Lab Results 11/01/19 11/01/19 11/01/19 08:55 05:38 05:38 BUN 22 H Hemoglobin A1c 12.9 H Vancomycin Trough 25.6 H* Meds: Medications Acetaminophen (Tylenol) 650 mg PO Q4-6HP PRN; Protocol PRN Reason: Per Pain Protocol/Fever > 101 Last Admin: 11/02/19 08:24 Dose: 650 mg Documented by: Bisacodyl (Dulcolax) 10 mg PA Q2-3DAYS PRN PRN Reason: Constipation Dextrose (Dextrose 50%) 0 ml IV UD PRN PRN Reason: Hypoglycemia Diagnostic Test (Pha) (Accu-Chek) 1 each FS ACHS [facility] Last Admin: 11/03/19 21:01 Dose: 1 each Documented by: Docusate Sodium (Colace) 100 mg PO BID [facility] Last Admin: 11/03/19 21:02 Dose: Not Given Documented by: Gabapentin (Neurontin) 100 mg PO TID [facility] Last Admin: 11/03/19 21:51 Dose: 100 mg Documented by: Glucose (Insta-Glucose) 15 gm PO PRN PRN PRN Reason: Hypoglycemia Heparin Sodium (Porcine) (Heparin) 5,000 unit SQ Q12 [facility] Last Admin: 11/03/19 21:51 Dose: 5,000 unit Documented by: Acetaminophen (Ofirmev) 650 mg in 65 mls @ 130 mls/hr IV Q6HP PRN; Protocol PRN Reason: Per Pain Protocol/Fever > 101 Last Infusion: 11/01/19 00:00 Dose: Infused Documented by: Magnesium Sulfate (Magnesium Sulfate) 2 gm in 50 mls @ 50 mls/hr IV UD PRN PRN Reason: MG = or < 1.7 Insulin Glargine (Lantus) 12 unit SQ BID [facility] Last Admin: 11/03/19 21:51 Dose: 12 unit Documented by: Insulin Human Lispro (Humalog) 0 unit SQ ACHS [facility]; Protocol Last Admin: 11/03/19 21:51 Dose: 1 units Documented by: Iron Carb/Multivit/Silo/Folic Acid (Multivitamin W/Minerals) 1 tab PO DAILY [facility] Last Admin: 11/03/19 11:00 Dose: 1 tab Documented by: Melatonin (Melatonin 3mg Tablet) 3 mg PO HSP PRN PRN Reason: Insomnia Last Admin: 11/03/19 01:37 Dose: 3 mg Documented by: Met[facility] ([facility]) [facility] Last Admin: 11/03/19 16:29 Dose: 1,000 mg Documented by: Ondansetron HCl (Zofran Odt) 4 mg SL Q4-6HP PRN; Protocol PRN Reason: Nausea And Vomiting Ondansetron HCl (Zofran) 4 mg IV Q4-6HP PRN; Protocol PRN Reason: Nausea And Vomiting Polyethylene Glycol (Miralax) 17 gm PO DAILYP PRN PRN Reason: Constipation Potassium Chloride (Klor-Con) 40 meq PO DAILYP PRN PRN Reason: K+ < 3.5 Senna/Docusate Sodium (Senna Plus Tablet) 1 tab PO HS [facility] Last Admin: 11/03/19 21:02 Dose: Not Given Documented by: Sitagliptin Phosphate (Januvia) 100 mg PO DAILY [facility] Last Admin: 11/03/19 11:00 Dose: 100 mg Documented by: Sodium Chloride (Saline Flush) 10 ml IV Q8 [facility] Last Admin: 11/03/19 21:51 Dose: 10 ml Documented by: A/P Narrative A/P Narrative: A: *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 Campos -Arterial Dopplers negative for stenosis *Poorly controlled diabetes: A1c 12.9 *Diabetic neuropathy: continue gabapentin *Obesity with a BMI over 35: Continue directed therapy/dietary intervention *Anemia, chronic: Plan: -Dr. Campos following -Wound care -discussed with ID. will d/c abx 48hrs after debridement. -Diabetes management/diabetic education/basal insulin(increased)/CC diet -CM for Discharge planning -ppx: heparin Time Spent With Patient Time: Total time spent is greater than 50% in coordination of care (as documented) at patient's floor/unit and/or counseling patient: QUALITY VTE Deep Vein Thrombosis/Pulmonary Embolism Present on Admission: No
[2019-11-04] MEDS: INSULIN LISPRO 1 UNIT/0.01 ML UNIT SQ SCH ×2 (07:45→11:42)
[2019-11-04] MEDS: ACETAMINOPHEN 325 MG TABLET PO PRN ×2 (07:45→11:46)
[2019-11-04] MEDS: metFORMIN 500 MG TABLET PO SCH (07:45)
[2019-11-04] MEDS: 0.9 % SODIUM CHLORIDE 10 ML SYRINGE IV SCH (07:46)
[2019-11-04] MEDS: DOCUSATE SODIUM 100 MG CAPSULE PO SCH (09:47)
[2019-11-04] MEDS: GABAPENTIN 100 MG CAPSULE PO SCH (09:57)
[2019-11-04] MEDS: MULTIVIT,THER IRON,CA,FA & MIN 1 TABLET PO SCH (09:57)
[2019-11-04] MEDS: sitaGLIPtin 100 MG TABLET PO SCH (09:57)
[2019-11-04] MEDS: HEPARIN 5,000 UNIT/ML VIAL SQ SCH (09:57)
[2019-11-04] MEDS: INSULIN GLARGINE, HUMAN 1 UNIT/0.01 ML SQ SCH (09:57)
--- NOTE | 2019-11-04 11:29 | Surgical Pathology Report ---
HISTOLOGY SPECIMEN MICROSCOPIC DIAGNOSIS SPECIMEN A - BONE, LEFT FOURTH TOE, BIOPSY: -- FRAGMENTS OF BONE AND CARTILAGE WITH NO DIAGNOSTIC ALTERATIONS. -- NO OSTEOMYELITIS IDENTIFIED. SPECIMEN B - DIGIT, LEFT FOURTH TOE, AMPUTATION: -- EPIDERMAL ULCERATION, ABSCESS, NECROSIS AND ACUTE OSTEOMYELITIS. -- VIABLE MARGINS OF RESECTION. (RLF:sln) CLINICAL HISTORY Uncontrolled diabetes. PROCEDURAL IMPRESSION Rule out osteomyelitis; gangrenous toe. GROSS DESCRIPTION Specimen A: Received in formalin labeled per requisition rule out osteomyelitis, are three jackson-brown bony fragments ranging in size from 0.5 x 0.3 x 0.2 to 1.1 x 0.6 x 0.4 cm. Submitted entirely in one cassette following decalcification. Specimen B: Received in formalin labeled per requisition left fourth toe, is a toe amputation specimen. The specimen measures 5 cm in length by up to 2.6 cm greatest width. The skin surface is notable for an ulcer located on the medial aspect and continuing to the plantar surface that measures 2 x 1.7 cm. The toenail is absent. Soft tissue extends 2.2 cm from the skin to the disarticulated amputation margin. The soft tissue and bone margin is inked black. The specimen is bisected and processed in decal. A full length-young cross section to include ulcer and margin is submitted in two cassettes: B1 - distal portion; B2 - proximal portion. (EBD:sln) Electronically Signed by: Yari Ernst M.D.
== END 2019-11-04 14:21 | DRG 616 ==
LOC: ED 12:46 → MEDSUR 21:25
PROVIDERS: ADMIT Internal Medicine; ATTEND Internal Medicine